=== PATIENT | female | born 1955 | race Caucasian/White ===

== ENCOUNTER → 2017-11-01 09:50 | Outpatient (CLI) | payer MEDICARE, BC, SELFPAY ==
--- NOTE | 2017-11-01 10:13 | MM_ITS ---
MM Dig screening mamm BI w/CAD CAD Screening COMPARISON: Digital mammograms 07/22/2012 INDICATION: There is no personal or family history of breast cancer TECHNIQUE: Standard CC and MLO images were obtained. R2 CAD reviewed. FINDINGS: Scattered fibroglandular densities are seen throughout both breast on a background of fatty breast parenchyma. There are couple of benign-appearing calcifications in each breast. There are 2 mole markers left breast. There is no suspicious lesion and there are no suspicious microcalcifications. There are stable small nodes in both axilla. IMPRESSION: Fibrofatty parenchyma with no suspicious lesion seen BI-RADS Category: 2 Benign Finding(s) RECOMMENDED FOLLOW-UP: 1YR - 1 YEAR FOLLOW-UP (A letter has been sent to the patient regarding results of the study.)
== END ==
PROVIDERS: Family Provider Family Medicine; PCP Family Medicine; Visit Provider Family Medicine
DX: Z12.31 Encounter for screening mammogram for malignant neoplasm of breast (principal)
CPT/HCPCS: 77067

== ENCOUNTER → 2019-04-07 09:48 | Outpatient (POV) | payer MEDICARE, BC, SELFPAY | PROVIDERS: Visit Provider Dermatology | DX: Z00.00 Encounter for general adult medical examination without abnormal findings (principal) ==

== ENCOUNTER 2019-05-21 10:00 | Outpatient (RCR) | payer MEDICARE, BC, SELFPAY | END 2019-05-21 10:05 | disposition home or self-care (01) | LOC: PT 10:00 | PROVIDERS: Visit Provider Orthopaedic Surgery | DX: Z96.642 Presence of left artificial hip joint (principal); M25.552 Pain in left hip | CPT/HCPCS: 97010; 97014; 97033; 97035; 97110; 97140; 97163; G0283 ==

== ENCOUNTER 2020-03-25 10:00 | Outpatient (RCR) | payer MEDICARE, BC, SELFPAY | END 2020-03-25 10:05 | disposition home or self-care (01) | LOC: PT 10:00 | PROVIDERS: Visit Provider Orthopaedic Surgery | DX: M76.01 Gluteal tendinitis, right hip (principal) | CPT/HCPCS: 97010; 97014; 97033; 97035; 97110; 97163; G0283 ==

== ENCOUNTER → 2020-09-01 08:40 | Outpatient (CLI) | payer MEDICARE, BC, SELFPAY ==
--- NOTE | 2020-09-01 08:44 | NM_ITS ---
PROCEDURE: NM BONE 3 PHASE CLINICAL INDICATION: ABN FINDINGS ON DIAGNOSTIC IMAGING Prior right hip replacement with soreness and pain COMPARISON: CR XR HIP RT 2-3V W/PELVIS from 09/01/2020 TECHNIQUE: Dose 24.6 mCi technetium MDP FINDINGS: Three-phase bone scan performed of the right hip. Blood flow images show symmetric activity to both hips. Blood pool images shows only slight increased activity to the soft tissues of the right hip anteriorly. Delayed static images show photopenic areas in both hips corresponding to the bilateral hip hemiarthroplasty is. There is very slight increased activity at the tip of the right prosthesis compared to the left side. This is nonspecific and may only be related to the recent placement of the prosthesis. This could also be seen with loosening however, radiograph obtained of the same day does not support that. Please correlate with clinical parameters. IMPRESSION: Status post bilateral hip hemiarthroplasty with photopenic areas in the proximal femurs and acetabuli with minimal increased activity at the tip of the right prosthesis which is nonspecific but could be seen with minor loosening. There is also slight increased activity within the soft tissues of the right hip on the blood flow images which could be related to some mild overlying inflammation or postsurgical change. Dictated by: Connor Pena MD 09/02/2020 06:16 Connor Pena MD in [facility] 09/02/2020 06:16
--- NOTE | 2020-09-01 13:04 | XR_ITS ---
PROCEDURE: XR HIP RT 2-3V W/PELVIS CLINICAL INDICATION: RT HIP PAIN..REPLACEMENT SEP 2019 COMPARISON: CR HIP2L HIP-2 VIEWS-LT from 06/02/2015 FINDINGS: Status post right hip hemiarthroplasty. There is good alignment with no evidence of orthopedic complication. No fracture or dislocation. There is a left hip hemiarthroplasty also noted. IMPRESSION: Status post bilateral hip hemiarthroplasty with good alignment Dictated by: Connor Pena MD 09/02/2020 12:38 Connor Pena MD in [facility] 09/02/2020 12:38
== END ==
PROVIDERS: PCP Family Medicine; Visit Provider Orthopaedic Surgery
DX: R93.7 Abnormal findings on diagnostic imaging of other parts of musculoskeletal system (principal)
CPT/HCPCS: 73502; 78315; A9503

== ENCOUNTER 2020-09-13 10:00 | Outpatient (RCR) | payer MEDICARE, BC, SELFPAY | END 2020-09-13 10:05 | disposition home or self-care (01) | LOC: PT 10:00 | PROVIDERS: Visit Provider Orthopaedic Surgery | DX: M79.604 Pain in right leg (principal) | CPT/HCPCS: 20560; 97010; 97014; 97110; 97140; 97163; G0283 ==

== ENCOUNTER → 2020-10-10 15:05 | Outpatient (CLI) | payer MEDICARE, BC, SELFPAY ==
[2020-10-12 10:12] LABS: Covid-19 Nasal PCR Sendout P&C POSITIVE
== END ==
PROVIDERS: PCP Family Medicine; Visit Provider Nurse Practitioner
DX: U07.1 COVID-19
CPT/HCPCS: U0004

== ENCOUNTER 2020-10-21 22:18 | Inpatient (IN) | payer MEDICARE, BC, SELFPAY ==
[2020-10-21 22:17] VITALS: BMI 41.9
--- NOTE | 2020-10-21 22:18 | XR_ITS ---
PROCEDURE: XR CHEST PORTABLE CLINICAL HISTORY: SOB Shortness of breath, low oxygen COMPARISON: CR CXR CHEST(2 VIEWS-NOT PORTABLE) from 07/31/[address] ANGIO CHEST from 10/22/2020 FINDINGS: The cardiomediastinal silhouette and pulmonary vascularity are within normal limits. There is diffuse bilateral alveolar opacification. There is some sparing in the left apex. No evidence of pneumothorax or pleural effusion. IMPRESSION: Diffuse bilateral pneumonia Dictated by: Connor Pena MD 10/22/2020 07:45 Connor Pena MD in [facility] 10/22/2020 07:45
[2020-10-21 22:25] LABS: ABG Base Excess -3.9 mmol/L (-2.4-2.3); ABG HCO3 18.6 mmhg (22.0-26.0); ABG Oxygen Saturation 88 % (90-100); ABG PCO2 22.1 mmhg (35.0-45.0); ABG PH 7.54 mmol/L (7.35-7.45); ABG TCO2 19.3 mmhg (23-27)
[2020-10-21 22:28] LABS: Allen's Test Acceptable; Oxygen 100% NRB %; Source Right Radial
[2020-10-21 22:29] LABS: ABG PO2 47.4 mmhg (80-100)
[2020-10-21 22:30] VITALS: BP 151/61; PULSE 118; RESP 32; TEMP 40; O2SAT 88; BMI 31.3
[2020-10-21 22:40] LABS: Microscopic, Urine URINE MICROSCOPIC (MICROSCOPIC)
[2020-10-21 22:46] LABS: Appearance,Urine CLEAR (Clear); Blood, Urine Negative (Negative); Color,Urine YELLOW (Yellow); Glucose,Urine (UA) Negative (Negative); Ketones,Urine 1+ (Negative); Leukocyte Esterase,Urine Negative (Negative); Nitrate,Urine Negative (Negative); Protein,Urine TRACE (Negative)
[2020-10-21 22:47] VITALS: BP 130/64; PULSE 121; O2SAT 86
[2020-10-21 22:50] LABS: Bilirubin,Urine 1+ (Negative)
[2020-10-21 22:52] LABS: Anion Gap 12.4 mEq/L (5-15); Blood Urea Nitrogen 20 mg/dl (7-17); Carbon Dioxide 22 mmol/L (22.0-30.0); Chloride 94 mmol/L (98-107); Creatinine Clearance Estimated 52 mL/min (50-200); Estimated Glomerular Filt Rate 55 ml/min (>60); GFR (African American) 67 ML/MIN (>60); Glucose 128 mg/dl (74-100); Sodium 124 mmol/L (136-145)
[2020-10-21 22:53] LABS: Basophils # 0.1 K/mm3 (0-0.2); Basophils % 0.5 % (0.1-2.0); Eosinophils % 0.1 % (0.1-12.0); Hematocrit 45.1 % (37.0-47.0); Hemoglobin 15.5 g/dL (12.2-16.2); Lymphocytes # 1.2 K/mm3 (0.7-4.5); Lymphocytes % 8.4 % (10-50); Mean Corpuscular HGB Conc 34.3 g/dL (31.8-35.4); Mean Corpuscular Hemoglobin 31.3 pg (27.0-31.2); Mean Corpuscular Volume 91.3 fl (81-99); Mean Platelet Volume 8.7 fl (7.4-10.4); Monocytes # 0.5 K/mm3 (0.1-1.0); Monocytes % 3.3 % (1.7-9.3); Neutrophils # 12.4 K/mm3 (1.8-7.8); Neutrophils % 87.6 % (37.0-80.0); Platelet Count 333 K/mm3 (142-424); Potassium 4.4 mmoL/L (3.5-5.1); Red Blood Count 4.94 M/mm3 (4.20-5.40); Red Cell Distribution Width 12.8 % (11.5-17.5); White Blood Count 14.1 K/mm3 (4.8-10.8)
[2020-10-21 22:54] LABS: MANUAL DIFFERENTIAL MANUAL DIFFERENTIAL (MANUAL DIFF)
[2020-10-21 22:54] LABS: Adenovirus,PCR Not Detected (NotDetected); Bordetella Pertussis Not Detected (NotDetected); Chlamydophila Pneumoniae, PCR Not Detected (NotDetected); Coronavirus 229E Not Detected (NotDetected); Coronavirus NL63 Not Detected (NotDetected); Coronavirus OC43 Not Detected (NotDetected); Coronovirus HKU1,PCR Not Detected (NotDetected); Human Metapneumovirus Not Detected (NotDetected); Influenza A, PCR Not Detected (NotDetected); Influenza AH1, 2009 Not Detected (NotDetected); Influenza AH1, PCR Not Detected (NotDetected); Influenza AH3,PCR Not Detected (NotDetected); Influenza B, PCR Not Detected (NotDetected); Mycoplasma Pneumoniae, PCR Not Detected (NotDetected); Parainfluenza 1, PCR Not Detected (NotDetected); Parainfluenza 2, PCR Not Detected (NotDetected); Parainfluenza 3, PCR Not Detected (NotDetected); Parainfluenza 4, PCR Not Detected (NotDetected); Respiratory Syncytial Virus Not Detected (NotDetected); Rhinovirus/Enterovirus Not Detected (NotDetected)
[2020-10-21 22:57] LABS: C-Reactive Protein 198.5 mg/L (0-4)
[2020-10-21 23:05] VITALS: O2SAT 89
[2020-10-21 23:06] LABS: Troponin I 0.22 ng/ml (0.00-0.034)
--- NOTE | 2020-10-21 23:08 | HMH.EDSOB ---
ED Disposition Clinical Impression: Pneumonia due to COVID-19 virus, Obesity (BMI 30-39.9) Respiratory failure with hypoxia Qualifiers: Chronicity: acute Qualified Code(s): J96.01 - Acute respiratory failure with hypoxia Hypothyroidism Qualifiers: Hypothyroidism type: acquired Qualified Code(s): E03.9 - Hypothyroidism, unspecified Disposition: Admitted As Inpatient Condition on Discharge: Serious Referrals: Yoav Castro MD [Primary Care Provider] - - Critical Care Critical Care Time: Yes Attestation: On 10/21/20, the high probability of a clinically significant, sudden or life threatening deterioration of the following system(s) required my full and direct attention, intervention and personal management. The time I documented below is in addition to time spent performing reported procedures but includes the following listed in this critical care notation. Total Critical Care Time: 45 Vital system(s) involved:: Respiratory Failure My critical care processes included: Assessment & monitoring of V/S, Initial and Re-exams, Data Review/Interpretation, Coordinating Care, Medication Orders and management Medical Decision Making - Medical Records Medical records reviewed: Yes: I reviewed the patient's medical records. - Daniel Inquiry Pt receiving controlled substance: No Vital Signs: 10/21/20 22:30 10/21/20 23:05 Temperature 104.0 F H Temperature Source Rectal Pulse Rate [Right] 118 H Respiratory Rate 32 H Blood Pressure [Right Arm] 151/61 H Blood Pressure Mean [Right Arm] 91 Blood Pressure Source [Right Arm] Automatic Cuff Blood Pressure Position [Right Arm] Supine 02 Sat by Pulse Oximetry 88 L 89 L Oxygen Delivery Method Non-Rebreather Vapotherm Oxygen Flow Rate (LPM) 40 - Lab Data Lab results reviewed: Yes: I reviewed the patient's lab results. Lab Results 10/21/20 22:18: Specimen Source Right radial, O2 % 100% nrb, ABG pH 7.54 H, ABG pCO2 22.1 L, ABG pO2 47.4 L, ABG HCO3 18.6 L, ABG Total CO2 19.3 L, ABG O2 Saturation 88 L, ABG Base Excess -3.9 L, Connor Test Acceptable 10/21/20 22:30: WBC 14.1 H, RBC 4.94, Hgb 15.5, Hct 45.1, MCV 91.3, MCH 31.3 H, MCHC 34.3, RDW 12.8, Plt Count 333, MPV 8.7, Neut % (Auto) 87.6 H, Lymph % (Auto) 8.4 L, [place] % (Auto) 3.3, Eos % (Auto) 0.1, Baso % (Auto) 0.5, Neut # (Auto) 12.4 H, Lymph # (Auto) 1.2, [place] # (Auto) 0.5, Eos # (Auto) 0.0, Baso # (Auto) 0.1, Total Counted 100, Neutrophils % (Manual) 79 H, Band Neutrophils % 9.0 H, Lymphocytes % (Manual) 11, Monocytes % (Manual) 1 L, Platelet Estimate Normal, RBC Morphology Normal, ESR 26 10/21/20 22:30: Sodium 124 L, Potassium 4.4, Chloride 94 L, Carbon Dioxide 22, Anion Gap 12.4, BUN 20 H, Creatinine 1.00, Estimated Creat Clear 52, Estimated GFR 55 L, Est GFR ( Amer) 67, Glucose 128 H, Calcium 9.0, Troponin I 0.22 H, C-Reactive Protein 198.5 H, Procalcitonin 0.222 10/21/20 22:30: Urine Color Yellow, Urine Appearance Clear, Urine pH 6.0, Ur Specific [place] 1.020, Urine Protein Trace, Urine Glucose (UA) Negative, Urine Ketones 1+, Urine Blood Negative, Urine Nitrate Negative, Urine Bilirubin 1+ A, Urine Urobilinogen 1.0, Ur Leukocyte Esterase Negative, Urine WBC 10-20 10/21/20 22:30: Lactate 2.0 10/21/20 22:50: Chlamy pneumoniae PCR Not detected, Adenovirus (PCR) Not detected, B. pertussis DNA (PCR) Not detected, Coronavirus OC43 (PCR) Not detected, Coronavirus HKU1 (PCR) Not detected, Coronavirus 229E (PCR) Not detected, SARS-CoV-2 (PCR) Detected A, Coronavirus NL63 (PCR) Not detected, Human Metapneumovir PCR Not detected, Influenza A (H1) PCR Not detected, Influ A (H1N1/09) PCR Not detected, Influenza A (H3) PCR Not detected, Influenza Type A (PCR) Not detected, Influenza Type B (PCR) Not detected, M. pneumoniae (PCR) Not detected, Parainfluenza 1 (PCR) Not detected, Parainfluenza 2 (PCR) Not detected, Parainfluenza 3 (PCR) Not detected, Parainfluenza 4 (PCR) Not detected, RSV (PCR) Not detected, Entero/Rhino (PCR) Not detec
[2020-10-21 23:11] LABS: Procalcitonin 0.222 ng/mL (0.0-2.0)
[2020-10-21 23:20] LABS: Erythrocyte Sedimentation Rate 26 mm/hr (0-30)
--- NOTE | 2020-10-21 23:31 | CT_ITS ---
PROCEDURE: CT ANGIO CHEST CLINCIAL INDICATION: respiratory failure Respiratory failure, positive for Covid19 COMPARISON: No exams were available for comparison TECHNIQUE: IV Contrast: 70ML Isovue 370 Axial images obtained with sagittal and coronal reformats. All CT scans at the facility use one or more dose reduction, viz: automated exposure control, ma/kV adjustment per patient size (including targeted exams where dose is matched to indication, i.e. head), or iterative reconstruction technique. FINDINGS: HEART AND MEDIASTINAL STRUCTURES: No evidence of aortic aneurysm or dissection. No evidence of central or large pulmonary embolus. In the left lower lobe within the posterior basilar segmental branches there is a small linear filling defect and may be due to a chronic area of pulmonary embolus. This is seen on series 2 image 153 to 170. There is mediastinal adenopathy and mildly prominent hilar lymph nodes LUNGS AND PLEURAL SPACES: Diffuse ground-glass consolidation throughout both lungs. Trace bilateral effusions. No evidence of pneumothorax. BONY STRUCTURES: There are degenerative changes within the thoracic spine with midthoracic curvature convex right. UPPER ABDOMEN: There is a small hiatal hernia. ADDITIONAL FINDINGS: No other significant abnormalities. IMPRESSION: 1. Diffuse ground-glass consolidation throughout the lungs. Commonly reported imaging features of Covid19 pneumonia are present. Other processes such is influenza pneumonia and organizing pneumonia, drug toxicity, connective tissue disease, and pulmonary hemorrhage can cause a similar imaging pattern. 2. No evidence of central pulmonary embolus. Tiny central filling defect within the posterior basilar segmental arteries left lower lobe suggesting small areas of chronic PE 3. Mediastinal and hilar adenopathy Dictated by: Connor Pena MD 10/22/2020 08:45 Connor Pena MD in [facility] 10/22/2020 08:45
[2020-10-21 23:41] LABS: Lymphocytes % 11 % (10-50); Monocytes % 1 % (2-9); Neutrophils % 79 % (42-76); Platelet Estimate Normal; RBC Morphology Normal; Total Cells Counted 100
[2020-10-21 23:47] VITALS: BP 123/70; PULSE 115; O2SAT 90
--- NOTE | 2020-10-21 23:51 | PC.NURSE ---
Pt confused and attempted to get out of bed, pt DC'd her own IV. Pt was helped back up in to the bed and placed back on the Vasotherm she pulled off and another IV is attempting to be placed
[2020-10-22] VITALS (15 sets, daily range): BP systolic 92–124; BP diastolic 47–69; PULSE 71–109; RESP 18–24; TEMP 36.3–37.2; O2SAT 80–91; BMI 30.9
[2020-10-22 00:21] LABS: Coronavirus 19, PCR Detected (NotDetected)
--- NOTE | 2020-10-22 00:33 | ECG_ITS ---
APPROVED REPORT Exam: Resting ECG HR:104 bpm ECG Measurements Heart Rate 104 AXES AL 154 P 43 QRSd 80 QRS -2 QT 324 T 55 QTc 426 Conclusion Sinus tachycardia Nonspecific ST and T wave abnormality Abnormal ECG Electronically signed by : Yoav Puga, 10/22/2020 08:48:50
--- NOTE | 2020-10-22 00:49 | PC.NURSE ---
catia on phone with neus @ this time
[2020-10-22 01:31] LABS: Alanine Aminotransferase 18 U/L (12-78); Albumin Level 3.1 g/dl (3.5-5.0); Albumin/Globulin Ratio 1.1 (1.1-1.8); Alkaline Phosphatase 87 U/L (38-126); Anion Gap 12.4 mEq/L (5-15); Aspartate Amino Transferase 40 U/L (14-36); Bilirubin,Total 0.7 mg/dl (0.2-1.3); Blood Urea Nitrogen 20 mg/dl (7-17); Calcium 8.2 mg/dl (8.4-10.2); Carbon Dioxide 21 mmol/L (22.0-30.0); Chloride 96 mmol/L (98-107); Creatinine Clearance Estimated 79 mL/min (50-200); Estimated Glomerular Filt Rate 63 ml/min (>60); GFR (African American) 76 ML/MIN (>60); Globulin 2.9 g/dL (1.3-3.2); Glucose 153 mg/dl (74-100); Potassium 3.4 mmoL/L (3.5-5.1); Sodium 126 mmol/L (136-145)
[2020-10-22 01:52] LABS: Troponin I 0.57 ng/ml (0.00-0.034)
--- NOTE | 2020-10-22 01:53 | PC.NURSE ---
notified of trop 0.57
--- NOTE | 2020-10-22 02:17 | PC.NURSE ---
Pt up to floor at this time via stretcher per ER staff
--- NOTE | 2020-10-22 03:45 | PC.NURSE ---
Pt has been A&Ox4 since being up to the floor. Expiratory wheezing noted t/o all lung ku per auscultation. Pt remains on vapotherm 40 L and 100% FiO2. o2 sat at this time, 91% No cough noted. IS placed in pt's room. Pt educated on its use and purpose. Pt verbalized understanding, but declined to try IS @ this time. Pt has been afebrile since being on the floor. Non-pitting edema noted to BLE. Pt has been sinus tach on tele this shift. Eden cath remains intact and is draining clear, light simon urine per gravity. No other acute changes or complaints at this time.
[2020-10-22 05:09] LABS: Basophils % 0.2 % (0.1-2.0); Eosinophils % 0.1 % (0.1-12.0); Hematocrit 40.2 % (37.0-47.0); Lymphocytes # 0.9 K/mm3 (0.7-4.5); Lymphocytes % 7.8 % (10-50); Mean Corpuscular HGB Conc 34.4 g/dL (31.8-35.4); Mean Corpuscular Hemoglobin 31.2 pg (27.0-31.2); Mean Corpuscular Volume 90.7 fl (81-99); Mean Platelet Volume 8.6 fl (7.4-10.4); Monocytes # 0.3 K/mm3 (0.1-1.0); Monocytes % 2.6 % (1.7-9.3); Neutrophils # 10.1 K/mm3 (1.8-7.8); Neutrophils % 89.4 % (37.0-80.0); Platelet Count 219 K/mm3 (142-424); Red Blood Count 4.43 M/mm3 (4.20-5.40); Red Cell Distribution Width 12.7 % (11.5-17.5); White Blood Count 11.3 K/mm3 (4.8-10.8)
[2020-10-22 05:17] LABS: Hemoglobin 13.8 g/dL (12.2-16.2)
[2020-10-22 05:22] LABS: Anion Gap 9.7 mEq/L (5-15); Blood Urea Nitrogen 18 mg/dl (7-17); Calcium 8.4 mg/dl (8.4-10.2); Carbon Dioxide 24 mmol/L (22.0-30.0); Chloride 99 mmol/L (98-107); Creatinine Clearance Estimated 81 mL/min (50-200); Estimated Glomerular Filt Rate 72 ml/min (>60); GFR (African American) 87 ML/MIN (>60); Glucose 166 mg/dl (74-100); Magnesium 2.2 mg/dl (1.6-2.3); Potassium 3.7 mmoL/L (3.5-5.1); Sodium 129 mmol/L (136-145)
[2020-10-22 06:00] LABS: Troponin I 0.58 ng/ml (0.00-0.034)
[2020-10-22 08:03] LABS: ABG Base Excess -2.3 mmol/L (-2.4-2.3); ABG HCO3 21.5 mmhg (22.0-26.0); ABG Oxygen Saturation 81 % (90-100); ABG PCO2 31.1 mmhg (35.0-45.0); ABG PH 7.46 mmol/L (7.35-7.45); ABG TCO2 22.5 mmhg (23-27)
[2020-10-22 08:04] LABS: Allen's Test Acceptable; Oxygen 100 %; Source Left Radial
[2020-10-22 08:05] LABS: ABG PO2 42.6 mmhg (80-100)
--- NOTE | 2020-10-22 08:23 | XR_ITS ---
PROCEDURE: XR CHEST PORTABLE CLINICAL HISTORY: covid pneumonia COMPARISON: CR CXR CHEST(2 VIEWS-NOT PORTABLE) from 07/31/2016 CR XR CHEST PORTABLE from 10/21/[address] ANGIO CHEST from 10/22/2020 FINDINGS: The cardiomediastinal silhouette and pulmonary vascularity are within normal limits. There remains mild diffuse ground-glass attenuation in the right upper and right lower lobe and left mid lower lung zone consistent with Covid19 pneumonia. Overall the appearance has improved however this may be due to better inspiration on this exam. No evidence of pneumothorax. No acute bony abnormalities. IMPRESSION: Diffuse bilateral pneumonia which appears slightly improved but may be due to better inspiration Dictated by: Connor Pena MD 10/22/2020 09:21 Connor Pena MD in [facility] 10/22/2020 09:21
--- NOTE | 2020-10-22 08:23 | HMH.HP ---
*Admission Date: 10/21/20 *Chief complaint: Weakness with questionable unresponsiveness at home *History of present illness: 65-year-old female diagnosed with COVID-19 infection on October 10 after presenting to the office with nasal congestion and discovery of recent exposure presented to the ER via EMS yesterday evening with respiratory failure. Patient reports over the last 2 weeks since her diagnosis her symptoms have fluctuated. During that time she had a period where for 1 to 2 days she felt short of breath but patient admits in the days leading up to her ER presentation she thought she was getting better. However, she does not recall the events of October 21 that ultimately led to her hospitalization. ER notes indicate patient was unconscious/unresponsive at home when EMS arrived. Patient's O2 sats were in the 40s. Patient was placed on nonrebreather and transported to the ER. In the ER patient was evaluated and has subsequently been admitted to the Covid unit on Vapotherm which is currently maxed at an FiO2 of 100% and 40 L/min. Nursing staff reports patient's O2 sats have been in the mid to high 80s on Vapotherm. Despite having obvious tachypnea with some conversational dyspnea patient denies feeling significantly short of breath this morning. Patient also had an elevated troponin on admission and denies having chest pain. [facility] History I have reviewed the patient's past medical history: Yes Medical History: Reports:: Hyperlipidemia Denies:: Cancer, Diabetes Mellitus Type 1, Diabetes Mellitus Type 2, MRSA *Have you ever received a pneumonia vaccine?: No *Have you received a flu vaccine this season?: No Other Medical History: Reports: Hypothyroidism Laterality Cases: Bilateral: Arthroscopy Hip, Arthroscopy Knee Amputation: No - *Social History Last grade of school completed: Some college Smoking Status: Never smoker Alcohol Intake: current Alcohol Intake Frequency:: holidays/special occasions only *Occupational Status:: retired Household Members: spouse *Travel in the last 8 weeks: None Family Hx:: Cancer, Coronary Artery Disease, Diabetes, Hypertension, Stroke Review of Systems - Constitutional Reports headache(s), Reports lack of energy - Eyes Denies blurry vision, Denies change in vision - ENT Reports headache(s), Reports nasal congestion, Reports nasal discharge, Denies bleeding gums, Denies change in voice - *Cardiovascular Reports shortness of breath, Denies chest pain, Denies chest pain at rest, Denies chest pain with activity - *Respiratory Reports chest congestion, Reports cough, Reports shortness of breath, Denies change in phlegm color - *Gastrointestinal Denies belching, Denies bloating - *Genitourinary Denies difficulty urinating - *Musculoskeletal Denies joint pain - Integumentary/Breasts Denies hair loss - *Neurologic Denies localized weakness, Denies headache(s), Denies seizure-like activity Meds Home Medications Medication Instructions Recorded Confirmed Type Levothyroxine Sodium 125 mcg PO DAILY 10/21/20 10/22/20 History [Levothyroxine 125mcg (0.125mg) Tab] Pravastatin Sodium 10 mg PO HS 10/21/20 10/22/20 History Allergies Allergy/AdvReac Type Severity Reaction Status Date / Time No Known Allergies Allergy Unverified 10/22/20 08:44 Exam Vital signs and Labs for Last 24 Hours: Temp Pulse Resp BP Pulse Ox 97.3 F L 98 H 18 114/66 81 L 10/22/20 07:51 10/22/20 07:51 10/22/20 07:51 10/22/20 07:51 10/22/20 07:51 Laboratory Results - last 24 hr 10/21/20 22:18: Specimen Source Right radial, O2 % 100% nrb, ABG pH 7.54 H, ABG pCO2 22.1 L, ABG pO2 47.4 L, ABG HCO3 18.6 L, ABG Total CO2 19.3 L, ABG O2 Saturation 88 L, ABG Base Excess -3.9 L, Connor Test Acceptable 10/21/20 22:30: WBC 14.1 H, RBC 4.94, Hgb 15.5, Hct 45.1, MCV 91.3, MCH 31.3 H, MCHC 34.3, RDW 12.8, Plt Count 333, MPV 8.7, Neut % (Auto) 87.6 H, Lymph % (Auto) 8.4 L, [place] % (Auto) 3.3, Eo
--- NOTE | 2020-10-22 08:24 | PC.NURSE ---
RESPIRATORY CARE NOTE: SPUTUM CUP PLACED AT PT BEDSIDE. PT UNABLE TO PRODUCE SPECIMEN AT THIS TIME, WILL CONTINUE TO PROMOTE COUGH THROUGHOUT THE DAY.
[2020-10-22 08:39] LABS: Alanine Aminotransferase 18 U/L (12-78); Albumin Level 3.2 g/dl (3.5-5.0); Alkaline Phosphatase 85 U/L (38-126); Aspartate Amino Transferase 47 U/L (14-36); Bilirubin,Direct 0.5 mg/dl (0.0-0.4); Bilirubin,Indirect 0.2 mg/dL (0.0-0.9); Bilirubin,Total 0.7 mg/dl (0.2-1.3); Bilirubin,Unconjugated 0.2 mg/dL (0.0-1.1); Total Protein,Serum 6.3 g/dl (6.3-8.2)
--- NOTE | 2020-10-22 09:39 | HMH.PHACONS ---
- Pharmacy Consult Date: 10/22/20 Time: 09:39 Referring provider: DR. BOLTON Reason for Consult:: VANCOMYCIN DOSING Allergies and ADEs:: Allergies Allergy/AdvReac Type Severity Reaction Status Date / Time No Known Allergies Allergy Unverified 10/22/20 08:44 Home Medications:: Home Medications Medication Instructions Recorded Confirmed Type Levothyroxine Sodium 125 mcg PO DAILY 10/21/20 10/22/20 History [Levothyroxine 125mcg (0.125mg) Tab] Pravastatin Sodium 10 mg PO HS 10/21/20 10/22/20 History Height: 1.73 m Weight: 92.334 kg Laboratory Results:: Laboratory Results - last 24 hr 10/21/20 22:18: Specimen Source Right radial, O2 % 100% nrb, ABG pH 7.54 H, ABG pCO2 22.1 L, ABG pO2 47.4 L, ABG HCO3 18.6 L, ABG Total CO2 19.3 L, ABG O2 Saturation 88 L, ABG Base Excess -3.9 L, Connor Test Acceptable 10/21/20 22:30: WBC 14.1 H, RBC 4.94, Hgb 15.5, Hct 45.1, MCV 91.3, MCH 31.3 H, MCHC 34.3, RDW 12.8, Plt Count 333, MPV 8.7, Neut % (Auto) 87.6 H, Lymph % (Auto) 8.4 L, [place] % (Auto) 3.3, Eos % (Auto) 0.1, Baso % (Auto) 0.5, Neut # (Auto) 12.4 H, Lymph # (Auto) 1.2, [place] # (Auto) 0.5, Eos # (Auto) 0.0, Baso # (Auto) 0.1, Total Counted 100, Neutrophils % (Manual) 79 H, Band Neutrophils % 9.0 H, Lymphocytes % (Manual) 11, Monocytes % (Manual) 1 L, Platelet Estimate Normal, RBC Morphology Normal, ESR 26 10/21/20 22:30: Sodium 124 L, Potassium 4.4, Chloride 94 L, Carbon Dioxide 22, Anion Gap 12.4, BUN 20 H, Creatinine 1.00, Estimated Creat Clear 52, Estimated GFR 55 L, Est GFR ( Amer) 67, Glucose 128 H, Calcium 9.0, Troponin I 0.22 H, C-Reactive Protein 198.5 H, Procalcitonin 0.222 10/21/20 22:30: Urine Color Yellow, Urine Appearance Clear, Urine pH 6.0, Ur Specific [place] 1.020, Urine Protein Trace, Urine Glucose (UA) Negative, Urine Ketones 1+, Urine Blood Negative, Urine Nitrate Negative, Urine Bilirubin 1+ A, Urine Urobilinogen 1.0, Ur Leukocyte Esterase Negative, Urine WBC 10-20 10/21/20 22:30: Lactate 2.0 10/21/20 22:50: Chlamy pneumoniae PCR Not detected, Adenovirus (PCR) Not detected, B. pertussis DNA (PCR) Not detected, Coronavirus OC43 (PCR) Not detected, Coronavirus HKU1 (PCR) Not detected, Coronavirus 229E (PCR) Not detected, SARS-CoV-2 (PCR) Detected A, Coronavirus NL63 (PCR) Not detected, Human Metapneumovir PCR Not detected, Influenza A (H1) PCR Not detected, Influ A (H1N1/09) PCR Not detected, Influenza A (H3) PCR Not detected, Influenza Type A (PCR) Not detected, Influenza Type B (PCR) Not detected, M. pneumoniae (PCR) Not detected, Parainfluenza 1 (PCR) Not detected, Parainfluenza 2 (PCR) Not detected, Parainfluenza 3 (PCR) Not detected, Parainfluenza 4 (PCR) Not detected, RSV (PCR) Not detected, Entero/Rhino (PCR) Not detected 10/22/20 01:17: Sodium 126 L, Potassium 3.4 L D, Chloride 96 L, Carbon Dioxide 21 L, Anion Gap 12.4, BUN 20 H, Creatinine 0.90, Estimated Creat Clear 79, Estimated GFR 63, Est GFR ( Amer) 76, Glucose 153 H, Calcium 8.2 L, Total Bilirubin 0.7, AST 40 H, ALT 18, Alkaline Phosphatase 87, Troponin I 0.57 H, Total Protein 6.0 L, Albumin 3.1 L, Globulin 2.9, Albumin/Globulin Ratio 1.1 10/22/20 04:30: Sodium 129 L, Potassium 3.7, Chloride 99, Carbon Dioxide 24, Anion Gap 9.7, BUN 18 H, Creatinine 0.80, Estimated Creat Clear 81, Estimated GFR 72, Est GFR ( Amer) 87, Glucose 166 H, Calcium 8.4, Magnesium 2.2, Troponin I 0.58 H 10/22/20 04:30: WBC 11.3 H, RBC 4.43, Hgb 13.8 D, Hct 40.2, MCV 90.7, MCH 31.2, MCHC 34.4, RDW 12.7, Plt Count 219 D, MPV 8.6, Neut % (Auto) 89.4 H, Lymph % (Auto) 7.8 L, [place] % (Auto) 2.6, Eos % (Auto) 0.1, Baso % (Auto) 0.2, Neut # (Auto) 10.1 H, Lymph # (Auto) 0.9, [place] # (Auto) 0.3, Eos # (Auto) 0.0, Baso # (Auto) 0.0 10/22/20 04:30: Total Bilirubin 0.7, Direct Bilirubin 0.5 H, Conjugated Bilirubin 0.0, Indirect Bilirubin 0.2, Unconjugated Bilirubin 0.2, AST 47 H, ALT 18, Alkaline Phosphatase 85, Total Protein 6.3, Albumin 3.2 L 10/22/20 07:41: Specimen Source Left radial,
--- NOTE | 2020-10-22 11:56 | P.CONPHA_ITS ---
[facility] Pharmacy VTE Monitoring - Patient Demographics Admission date: 10/22/20 Report Date: 10/22/20 Time: 11:56 Allergies/Adverse Reactions: Patient Allergies No Known Allergies Allergy (Unverified 10/22/20 08:44) Height: 1.73 m Weight: 92.334 kg Patient Problems: Current Active Problems Pneumonia due to COVID-19 virus (Acute) Respiratory failure with hypoxia (Acute) Obesity (BMI 30-39.9) (Acute) Hypothyroidism (Acute) Acute hypoxemic respiratory failure (Acute) Viral pneumonia (Acute) COVID-19 virus infection (Acute) Elevated troponin (Acute) Hypothyroidism (acquired) (Acute) Hyperlipidemia (Acute) - VTE Risk Labs: VTE Related Lab Results Hgb 13.8 g/dL (12.2-16.2) D 10/22/20 04:30 Hct 40.2 % (37.0-47.0) 10/22/20 04:30 Plt Count 219 K/mm3 (142-424) D 10/22/20 04:30 BUN 18 mg/dl (7-17) H 10/22/20 04:30 Creatinine 0.80 mg/dl (0.52-1.04) 10/22/20 04:30 Estimated Creat Clear 81 mL/min (50-200) 10/22/20 04:30 VTE Score: 7 VTE Risk Level: Moderate Risk - Prophylaxis Types of VTE Prophylaxis: Pharmacological Location of Applied Device: Not Applicable Pharmacologic Type: Enoxaparin (LOVENOX)
--- NOTE | 2020-10-22 17:57 | PC.NURSE ---
Pt has been pleasant and cooperative this shift. A&O X4. No complaints of pain or SOA. Pt is receiving O2 via Vapotherm @ 40 LPM with sats. >86%. Lung sounds reveal expiratory rhonchi. Skin is C/D/I. No edema noted. F/C is patent and draining clear, yellow urine at bedside to gravity. No BM this shift. Pt turns/repositions Q2H and uses the IS faithfully. Pt ambulates independently and sat up in the recliner for several hours this shift. Appetite is fair and pt eats about 50% of all meals. 20 G peripheral IV in the RT AC is patent and SL. VSS. Call light within reach. Will continue to monitor.
[2020-10-23] VITALS (10 sets, daily range): BP systolic 99–122; BP diastolic 40–64; PULSE 64–81; RESP 18–24; TEMP 36.2–37; O2SAT 83–93; BMI 33.8
--- NOTE | 2020-10-23 03:18 | PC.NURSE ---
Pt has remained A&Ox4 this shift. Pt has remained in recliner this shift stating I am more comfortable this way Lung sounds are diminished t/o. No cough noted this shift. Pt is still maxed out on vapotherm w/ o2 sats between 87-92%. Pt has used IS hourly while awake. IS @ best 1250 cc's. Eden cath is draining clear, dark yellow urine per gravity. Active bowel sounds in all 4 quads, no BM noted this shift. No other acute changes or complaints at this time.
--- NOTE | 2020-10-23 06:00 | XR_ITS ---
PROCEDURE: XR CHEST PORTABLE Referring Doctor: Yoav Castro Patient Age:65Y CLINICAL HISTORY: covid pneumonia Hypoxia, leukocytosis COMPARISON: CR CXR CHEST(2 VIEWS-NOT PORTABLE) from 07/31/2016 CR XR CHEST PORTABLE from 10/21/[address] ANGIO CHEST from 10/22/2020 CR XR CHEST PORTABLE from 10/22/2020 FINDINGS: AP portable upright CXR performed today. There has been progression of bilateral infiltrates when compared to yesterday's October 22 CXR (actually today's study appears more in keeping with the October 21 pCXR) Bilateral diffuse infiltrates, most evident centrally but do extend peripheral more so on left but. Most pronounced infiltrate seen at the left mid lung and left base.-Infiltrate/atelectasis here now obscuring the left hemidiaphragm.. Findings do suggest bilateral pneumonia as seen on CT study from yesterday however may be in a element of CHF contributing given this central distribution infiltrate pattern along with moderately variation from day-to-day. You may want to consider correlating with BNP as well . There does appear to be minimal cardiomegaly on this portable CXR. . Hilar regions generous but in keeping with the recent studies including CT which suggested some underlying reactive mediastinal and mild hilar adenopathy. No pneumothorax; no obvious pleural effusions although difficult to exclude small effusion contributing to the obscured left hemidiaphragm at left base IMPRESSION: Progression of diffuse bilateral infiltrate since yesterday. The the Infiltrate/atelectasis most evident at left mid lung and left base now obscuring the elevated left hemidiaphragm on today's CXR Dictated by: Timothy Dickerson MD 10/23/2020 05:54 Timothy Dickerson MD in [place] 10/23/2020 05:54
[2020-10-23 06:13] LABS: Basophils % 0.1 % (0.1-2.0); Eosinophils % 0.1 % (0.1-12.0); Hematocrit 39.4 % (37.0-47.0); Hemoglobin 13.3 g/dL (12.2-16.2); Lymphocytes # 0.9 K/mm3 (0.7-4.5); Lymphocytes % 6.7 % (10-50); Mean Corpuscular HGB Conc 33.6 g/dL (31.8-35.4); Mean Corpuscular Volume 92.3 fl (81-99); Mean Platelet Volume 8.9 fl (7.4-10.4); Monocytes # 0.6 K/mm3 (0.1-1.0); Monocytes % 4.8 % (1.7-9.3); Neutrophils # 11.5 K/mm3 (1.8-7.8); Neutrophils % 88.2 % (37.0-80.0); Platelet Count 244 K/mm3 (142-424); Red Blood Count 4.27 M/mm3 (4.20-5.40); White Blood Count 13.1 K/mm3 (4.8-10.8)
[2020-10-23 06:18] LABS: MANUAL DIFFERENTIAL MANUAL DIFFERENTIAL (MANUAL DIFF)
[2020-10-23 06:29] LABS: Alanine Aminotransferase 18 U/L (12-78); Albumin Level 3.1 g/dl (3.5-5.0); Alkaline Phosphatase 76 U/L (38-126); Anion Gap 9.3 mEq/L (5-15); Aspartate Amino Transferase 36 U/L (14-36); Bilirubin,Total 0.5 mg/dl (0.2-1.3); Blood Urea Nitrogen 24 mg/dl (7-17); Calcium 8.2 mg/dl (8.4-10.2); Carbon Dioxide 25 mmol/L (22.0-30.0); Chloride 105 mmol/L (98-107); Creatinine Clearance Estimated 81 mL/min (50-200); Estimated Glomerular Filt Rate 84 ml/min (>60); GFR (African American) 101 ML/MIN (>60); Globulin 3.1 g/dL (1.3-3.2); Glucose 128 mg/dl (74-100); Potassium 3.3 mmoL/L (3.5-5.1); Sodium 136 mmol/L (136-145); Total Protein,Serum 6.2 g/dl (6.3-8.2)
[2020-10-23 06:34] LABS: C-Reactive Protein 126.7 mg/L (0-4)
--- NOTE | 2020-10-23 06:55 | PC.NURSE ---
Weight not obtained at this time due to pt desatting in chair while bathing. Will pass on to dayshift once pt is more stable. Pt desat to 74% and took approx 30 minutes to 89%. Pt did stay A&O during that time
[2020-10-23 07:13] LABS: Lymphocytes % 8 % (10-50); Monocytes % 1 % (2-9); Neutrophils % 88 % (42-76); Platelet Estimate Normal; RBC Morphology Normal; Total Cells Counted 100
[2020-10-23 07:17] LABS: ABG Base Excess -1.3 mmol/L (-2.4-2.3); ABG HCO3 21.9 mmhg (22.0-26.0); ABG Oxygen Saturation 87 % (90-100); ABG PCO2 28.9 mmhg (35.0-45.0); ABG TCO2 22.8 mmhg (23-27)
[2020-10-23 07:18] LABS: Allen's Test Acceptable; Oxygen 100% %; Source Left Radial
[2020-10-23 07:19] LABS: ABG PO2 48.5 mmhg (80-100)
--- NOTE | 2020-10-23 07:49 | HMH.ACPN2 ---
Internal Medicine - PN: Subj *Date: 10/23/20 *Time: 07:49 Interval history: Patient remains stable and without acute events. She is on Vapotherm at 40 L/min with FiO2 of 100%. O2 sats have remained in the high 80s to 94%. When patient lays on her side O2 sats seem to improve. Patient did get out of bed to chair and had brief desats with change in position and bathing this morning. Nursing staff reports no change in patient's overall status. Patient states she feels better today than yesterday Exam Vital signs and Labs for Last 24 Hours: Temp Pulse Resp BP Pulse Ox 97.4 F L 66 18 99/56 L 92 L 10/23/20 04:00 10/23/20 04:00 10/23/20 04:00 10/23/20 04:00 10/23/20 05:05 Laboratory Results - last 24 hr 10/22/20 04:30: Total Bilirubin 0.7, Direct Bilirubin 0.5 H, Conjugated Bilirubin 0.0, Indirect Bilirubin 0.2, Unconjugated Bilirubin 0.2, AST 47 H, ALT 18, Alkaline Phosphatase 85, Total Protein 6.3, Albumin 3.2 L 10/22/20 07:41: Specimen Source Left radial, O2 % 100, ABG pH 7.46 H, ABG pCO2 31.1 L, ABG pO2 42.6 L, ABG HCO3 21.5 L, ABG Total CO2 22.5 L, ABG O2 Saturation 81 L*, ABG Base Excess -2.3, Connor Test Acceptable, Tidal Volume vapo 40l 10/23/20 05:35: WBC 13.1 H, RBC 4.27, Hgb 13.3, Hct 39.4, MCV 92.3, MCH 31.0, MCHC 33.6, RDW 13.0, Plt Count 244, MPV 8.9, Neut % (Auto) 88.2 H, Lymph % (Auto) 6.7 L, [place] % (Auto) 4.8, Eos % (Auto) 0.1, Baso % (Auto) 0.1, Neut # (Auto) 11.5 H, Lymph # (Auto) 0.9, [place] # (Auto) 0.6, Eos # (Auto) 0.0, Baso # (Auto) 0.0, Total Counted 100, Neutrophils % (Manual) 88 H, Band Neutrophils % 3.0, Lymphocytes % (Manual) 8 L, Monocytes % (Manual) 1 L, Platelet Estimate Normal, RBC Morphology Normal 10/23/20 05:35: Sodium 136, Potassium 3.3 L, Chloride 105, Carbon Dioxide 25, Anion Gap 9.3, BUN 24 H D, Creatinine 0.70, Estimated Creat Clear 81, Estimated GFR 84, Est GFR ( Amer) 101, Glucose 128 H, Calcium 8.2 L, Total Bilirubin 0.5, AST 36, ALT 18, Alkaline Phosphatase 76, C-Reactive Protein 126.7 H, Total Protein 6.2 L, Albumin 3.1 L, Globulin 3.1, Albumin/Globulin Ratio 1.0 L, Procalcitonin 0.710 10/23/20 06:00: Specimen Source Left radial, O2 % 100%, ABG pH 7.50 H, ABG pCO2 28.9 L, ABG pO2 48.5 L, ABG HCO3 21.9 L, ABG Total CO2 22.8 L, ABG O2 Saturation 87 L*, ABG Base Excess -1.3, Connor Test Acceptable, Tidal Volume vapo 40l I & O for Last 24 hours: Intake & Output 10/20/20 10/21/20 10/22/20 10/23/20 11:59 11:59 11:59 11:59 Intake Total 1860 / 1860 1720 / 1720 Output Total 1800 / 1800 2400 / 2400 Balance 60 / 60 -680 / -680 Weight 203 lb 9 oz Microbiology Reports for the Last 24 Hours: Microbiology 10/21/20 22:30 Urine,Catheterized Urine Culture - Preliminary NO GROWTH AFTER 24 HOURS Narrative: Patient looks tired. Mild tachypnea similar to yesterday. Lungs have bibasilar rales. Heart has a regular rate and rhythm. Abdomen is soft and nontender Assessment and Plan (1) Acute hypoxemic respiratory failure Status: Acute Category: Medical Code(s): J96.01 - Acute respiratory failure with hypoxia (2) Viral pneumonia Status: Acute Category: Medical Code(s): J12.9 - Viral pneumonia, unspecified (3) COVID-19 virus infection Status: Acute Category: Medical Code(s): U07.1 - COVID-19 (4) Elevated troponin Status: Acute Category: Medical Code(s): R77.8 - Other specified abnormalities of plasma proteins (5) Hypothyroidism (acquired) Status: Acute Category: Medical Code(s): E03.9 - Hypothyroidism, unspecified (6) Hyperlipidemia Status: Acute Category: Medical Code(s): E78.5 - Hyperlipidemia, unspecified (7) Hypothyroidism Status: Acute Qualifiers: Hypothyroidism type: acquired Qualified Code(s): E03.9 - Hypothyroidism, unspecified Category: Medical Code(s): E03.9 - Hypothyroidism, unspecified (8) Obesity Status: Chronic Qualifiers: Obesity type: due to excess maribel
--- NOTE | 2020-10-23 16:56 | PC.NURSE ---
Pt has been pleasant and cooperative this shift. A&O X4. No complaints of pain. Pt complains of SOA with exertion and requires 10-15 minutes to recover from O2 de-saturation between 80-85%. Pt is receiving O2 via Vapotherm @ 40 LPM with sats. >90%. Lung sounds reveal expiratory rhonchi. Skin is C/D/I. No edema noted. F/C is patent and draining clear, yellow urine at bedside to gravity. No BM this shift. Pt turns/repositions Q2H and uses the IS faithfully. Pt ambulates independently and sat up in the recliner for several hours this shift. Appetite is fair and pt eats about 50% of all meals. Specimen cup is at bedside and pt has been instructed to provide a sputum specimen. 20 G peripheral IV in the RT AC is patent and SL. VSS. Call light within reach. Will continue to monitor.
[2020-10-23 22:50] LABS: Vancomycin,Trough 8.8 ug/mL (5.0-10.0)
[2020-10-24] VITALS (11 sets, daily range): BP systolic 94–125; BP diastolic 40–65; PULSE 75–95; RESP 18–28; TEMP 36.6–37.1; O2SAT 83–94; BMI 33.7
--- NOTE | 2020-10-24 00:56 | PC.NURSE ---
1934- MD Toro made aware of pt blood culture results. Clindamycin 900 mg q8h ordered 2144-MD Toro made aware that pt was desatting between 82-83% consistently and took about 1 hour to recover to 87%. Pt remained awake alert and oriented, but was breathing very labored and using all accessory muscles. x1 dose of 40 mg Lasix IV ordered. Pt currently @ 88% and has diuresed 1800 mL of urine per grijalva. WOB has improved and pt is breathing nonlabored, on her left side, and resting w/ eyes closed
--- NOTE | 2020-10-24 01:45 | PC.NURSE ---
0135- MD Toro notified regarding pt's current status. Pt desatted to 76% while sleeping, vapotherm in place. Pt was not in any distress, remained A&Ox4. But on monitor, 02 sats between 76-81%. current vitals: BP- 112/67 HR- 71 o2 sat 81 % on 40L, 100% Fio2 vapotherm MD Toro ordered another dose of 40 mg IV Lasix ONCE NOW
--- NOTE | 2020-10-24 02:06 | PC.NURSE ---
Addendum entered and electronically signed by Raul Negron MD 10/24/20 08:33: Received call overnight regarding this patients declining status. I informed the nurse that the patients vitals as told to me by the nurse appear concerning for respiratory failure and patient need to be intubated. However as I am not reservoir engineering consultant and have not seen the patient it would be inappropriate to give recommendations for patients that I have not personally seen. So I have told the nurse to call back Dr. Toro to inform my recommendations and seek further recommendations from Dr. Toro . The conversation was not as short and blunt as it was documented in the nursing notes. Original Note: MD Negron paged due to pt's o2 sat not increasing and remaining between 76-78%. Pt is still A&Ox4, arouses to her name. RR increased to 24-26 breaths per minute, but breathing remains nonlabored. MD Negron stated Contact Dr. Toro, I am not reservoir engineering consultant. And see what he says to do . MD Toro contacted after conversation w/ MD Negron, pt sats remained between 76-79%. Additional order of 40 mg IV Lasix ordered per MD Toro. RT placed NRB above pt's vapotherm. Pt recovered to 85% after 20 minutes. MD Negron called back to see what MD Toro's suggestion was, said he would see pt first thing in the morning. Current vital signs: BP- 115/70 HR- 65 o2 sat- 84% RR- 24
--- NOTE | 2020-10-24 03:33 | PC.NURSE ---
Pt is now sleeping bed. NRB remains in place over vapotherm. current o2 sat is 88%. Pt is breathing 32 times a min. Pt remains on left side. Breathing remains non labored. Lung sounds are now diminished as opposed to wheezing during inspiration and expiration at the beginning of this shift.
[2020-10-24 06:28] LABS: Basophils % 0.2 % (0.1-2.0); Eosinophils # 0.2 K/mm3 (0.0-0.4); Eosinophils % 1.5 % (0.1-12.0); Hematocrit 38.1 % (37.0-47.0); Lymphocytes # 0.8 K/mm3 (0.7-4.5); Lymphocytes % 5.4 % (10-50); Mean Corpuscular HGB Conc 34.2 g/dL (31.8-35.4); Mean Corpuscular Hemoglobin 30.6 pg (27.0-31.2); Mean Corpuscular Volume 89.4 fl (81-99); Monocytes # 0.6 K/mm3 (0.1-1.0); Monocytes % 4.4 % (1.7-9.3); Neutrophils # 12.3 K/mm3 (1.8-7.8); Neutrophils % 88.6 % (37.0-80.0); Platelet Count 256 K/mm3 (142-424); Red Blood Count 4.26 M/mm3 (4.20-5.40); Red Cell Distribution Width 12.6 % (11.5-17.5); White Blood Count 13.9 K/mm3 (4.8-10.8)
[2020-10-24 06:37] LABS: MANUAL DIFFERENTIAL MANUAL DIFFERENTIAL (MANUAL DIFF)
--- NOTE | 2020-10-24 06:47 | HMH.ACPN2 ---
Internal Medicine - PN: Subj *Date: 10/24/20 *Time: 06:47 Interval history: Patient's condition declined overnight. Patient was noted to have increased work of breathing with decrease in O2 sats. Patient was given 2 doses of Lasix throughout the night with a total of nearly 3500 mL of urine output. This however has not resulted in improvement in O2 sats or decrease in work of breathing. Patient's O2 sats have remained in the mid to high 80s on maximum high flow nasal cannula. This morning the patient states she feels the same as yesterday. She is coughing up some thick white sputum. Exam Vital signs and Labs for Last 24 Hours: Temp Pulse Resp BP Pulse Ox 98.7 F 75 28 H 115/65 89 L 10/24/20 04:00 10/24/20 04:00 10/24/20 04:00 10/24/20 04:00 10/24/20 04:00 Laboratory Results - last 24 hr 10/23/20 05:35: Total Counted 100, Neutrophils % (Manual) 88 H, Band Neutrophils % 3.0, Lymphocytes % (Manual) 8 L, Monocytes % (Manual) 1 L, Platelet Estimate Normal, RBC Morphology Normal 10/23/20 05:35: Sodium 136, Potassium 3.3 L, Chloride 105, Carbon Dioxide 25, Anion Gap 9.3, BUN 24 H D, Creatinine 0.70, Estimated Creat Clear 81, Estimated GFR 84, Est GFR ( Amer) 101, Glucose 128 H, Calcium 8.2 L, Total Bilirubin 0.5, AST 36, ALT 18, Alkaline Phosphatase 76, C-Reactive Protein 126.7 H, Total Protein 6.2 L, Albumin 3.1 L, Globulin 3.1, Albumin/Globulin Ratio 1.0 L, Procalcitonin 0.710 10/23/20 06:00: Specimen Source Left radial, O2 % 100%, ABG pH 7.50 H, ABG pCO2 28.9 L, ABG pO2 48.5 L, ABG HCO3 21.9 L, ABG Total CO2 22.8 L, ABG O2 Saturation 87 L*, ABG Base Excess -1.3, Connor Test Acceptable, Tidal Volume vapo 40l 10/23/20 22:25: Vancomycin Trough 8.8 10/24/20 06:00: WBC 13.9 H, RBC 4.26, Hgb 13.0, Hct 38.1, MCV 89.4, MCH 30.6, MCHC 34.2, RDW 12.6, Plt Count 256, MPV 8.0, Neut % (Auto) 88.6 H, Lymph % (Auto) 5.4 L, [place] % (Auto) 4.4, Eos % (Auto) 1.5, Baso % (Auto) 0.2, Neut # (Auto) 12.3 H, Lymph # (Auto) 0.8, [place] # (Auto) 0.6, Eos # (Auto) 0.2, Baso # (Auto) 0.0 I & O for Last 24 hours: Intake & Output 10/21/20 10/22/20 10/23/20 10/24/20 11:59 11:59 11:59 11:59 Intake Total 1860 / 1860 2080 / 2080 1450 / 1450 Output Total 1800 / 1800 2400 / 2400 2600 / 2600 Balance 60 / 60 -320 / -320 -1150 / -1150 Weight 203 lb 9 oz 223 lb 7 oz Microbiology Reports for the Last 24 Hours: Microbiology 10/21/20 22:30 Urine,Catheterized Urine Culture - Final NO GROWTH AFTER 48 HOURS 10/21/20 22:30 Blood Blood Culture - Preliminary NO GROWTH AFTER 48 HOURS 10/21/20 22:30 Blood Blood Culture - Preliminary Narrative: Patient looks more fatigued. Noted is increased respiratory rate and mild increase in work of breathing. Lung exam is significant for rales in the bases posteriorly as well as in the right lateral and anterior lower lung. Heart has a regular rate and rhythm. Abdomen is soft. Extremities are without edema Assessment and Plan (1) Acute hypoxemic respiratory failure Status: Acute Category: Medical Code(s): J96.01 - Acute respiratory failure with hypoxia (2) Viral pneumonia Status: Acute Category: Medical Code(s): J12.9 - Viral pneumonia, unspecified (3) COVID-19 virus infection Status: Acute Category: Medical Code(s): U07.1 - COVID-19 (4) Elevated troponin Status: Acute Category: Medical Code(s): R77.8 - Other specified abnormalities of plasma proteins (5) Hypothyroidism (acquired) Status: Acute Category: Medical Code(s): E03.9 - Hypothyroidism, unspecified (6) Hyperlipidemia Status: Acute Category: Medical Code(s): E78.5 - Hyperlipidemia, unspecified (7) Hypothyroidism Status: Acute Qualifiers: Hypothyroidism type: acquired Qualified Code(s): E03.9 - Hypothyroidism, unspecified Category: Medical Code(s): E03.9 - Hypothyroidism, unspecified (8) Obesity Status: Chronic Young
[2020-10-24 07:24] LABS: ABG Base Excess -0.3 mmol/L (-2.4-2.3); ABG HCO3 22.5 mmhg (22.0-26.0); ABG Oxygen Saturation 85 % (90-100); ABG PCO2 28.1 mmhg (35.0-45.0); ABG PH 7.52 mmol/L (7.35-7.45); ABG TCO2 23.4 mmhg (23-27)
[2020-10-24 07:26] LABS: Allen's Test Acceptable; Source Left Radial
[2020-10-24 07:27] LABS: ABG PO2 43.1 mmhg (80-100)
[2020-10-24 07:52] LABS: Alanine Aminotransferase 22 U/L (12-78); Albumin Level 3.4 g/dl (3.5-5.0); Alkaline Phosphatase 74 U/L (38-126); Anion Gap 12.5 mEq/L (5-15); Aspartate Amino Transferase 41 U/L (14-36); Bilirubin,Total 0.8 mg/dl (0.2-1.3); Blood Urea Nitrogen 21 mg/dl (7-17); Calcium 8.2 mg/dl (8.4-10.2); Carbon Dioxide 27 mmol/L (22.0-30.0); Chloride 106 mmol/L (98-107); Creatinine Clearance Estimated 89 mL/min (50-200); Estimated Glomerular Filt Rate 72 ml/min (>60); GFR (African American) 87 ML/MIN (>60); Globulin 3.4 g/dL (1.3-3.2); Glucose 106 mg/dl (74-100); Potassium 3.5 mmoL/L (3.5-5.1); Sodium 142 mmol/L (136-145); Total Protein,Serum 6.8 g/dl (6.3-8.2)
[2020-10-24 07:57] LABS: C-Reactive Protein 68.1 mg/L (0-4)
[2020-10-24 08:08] LABS: Procalcitonin 0.336 ng/mL (0.0-2.0)
--- NOTE | 2020-10-24 08:33 | CA_ITS ---
APPROVED REPORT EXAM: Comprehensive 2D, Doppler, and color-flow Echocardiogram Menagerie Caretaker: Sarah Rodrigues, RT(R) Ht: 5 ft 8 in Wt: 217lbs BSA: 2.12 BP: 114/66 mmHg Indications: COVID 19, Pnuemonia, hyperlipidemia, elevated troponin, SOB, chronic PE 2D Dimensions LVOT 1.96 cm (M/F) 1.5-2.5 M-Mode Dimensions RVDd 3.38 cm (0.9-2.6) LA Diam 3.77 cm (1.9-4.0) LVDd 4.55 cm (3.5-5.7) Ao Diam 2.78 cm (2.0-3.7) LVDs 2.88 cm (3.5-5.7) IVSd 1.10 cm (0.6-1.1) PWd 0.80 cm (0.6-1.1) EF (Teich) 66.60% FS 36.70% EDV (Teich) 94.90 mL ESV (Teich) 31.70 mL LV Diastology E Decel Time 213.00 (160-240 msec) E/A Ratio 1.0 MED E' 8.40 (< 7 cm/sec) E'/MED E' Ratio 8.58 (>14) LAT E' 8.00 (<10 cm/sec) E/LAT E' Ratio 9.01 (>14) Mitral Valve MV E Max Kenney. 72.00 (40-130 cm/s) MV A Velocity 74.00 (40-130 cm/s) E/A Ratio 0.98 MV Decel. Time 213.00 (160-240 ms) MV PHT 62.00 ms Tricuspid Valve TR P. Velocity 239.00 cm/s RAP Estimate 15.00 mmHg RVSP 37.80 mmHg Left Ventricle Left atrium is mildly enlarged, left ventricle is normal size, mild concentric left ventricular hypertrophy, visually estimated ejection fraction 55% with no regional wall motion abnormality, grade 1 diastolic dysfunction seen without tissue Doppler evidence of raise left atrial pressure. Right Ventricle Right atrium and right ventricle are mildly enlarged with normal contractility. Aortic Valve Aortic valve is minimally thickened and fibrosed, there is no aortic stenosis or aortic insufficiency. Mitral Valve Mitral valve is grossly normal, there is trace mitral regurgitation. Tricuspid Valve Tricuspid valve grossly normal, there is mild tricuspid regurgitation, calculated right ventricular systolic pressure is 38 mmHg. Pulmonic Valve Pulmonic valve is poorly visualized. Great Vessels Aortic root is normal size. Pericardium No significant pericardial effusion noted. Conclusion 1. Mild biatrial enlargement, normal left ventricular size, mild concentric left ventricular hypertrophy, visually estimated ejection fraction 55% with no regional wall motion abnormality, grade 1 diastolic dysfunction seen without tissue Doppler evidence of raise left atrial pressure. 2. Mildly enlarged right ventricle with normal contractility. 3. Trace mitral and mild tricuspid regurgitation calculated right ventricular systolic pressure 38 mmHg 4. No significant pericardial effusion noted. Electronically signed by : Bob Inman, 10/24/2020 21:16:00
[2020-10-24 08:44] LABS: Lymphocytes % 16 % (10-50); Monocytes % 4 % (2-9); Neutrophils % 80 % (42-76); Platelet Estimate Normal; RBC Morphology Normal; Total Cells Counted 100
--- NOTE | 2020-10-24 08:53 | HMH.PHACONS ---
- Pharmacy Consult Date: 10/24/20 Time: 08:53 Referring provider: DR. BOLTON Reason for Consult:: VANCOMYCIN TROUGH LEVEL Allergies and ADEs:: Allergies Allergy/AdvReac Type Severity Reaction Status Date / Time No Known Allergies Allergy Unverified 10/22/20 08:44 Home Medications:: Home Medications Medication Instructions Recorded Confirmed Type Levothyroxine Sodium 125 mcg PO DAILY 10/21/20 10/22/20 History [Levothyroxine 125mcg (0.125mg) Tab] Pravastatin Sodium 10 mg PO HS 10/21/20 10/22/20 History Height: 1.73 m Weight: 101.35 kg Laboratory Results:: Laboratory Results - last 24 hr 10/23/20 22:25: Vancomycin Trough 8.8 10/24/20 06:00: WBC 13.9 H, RBC 4.26, Hgb 13.0, Hct 38.1, MCV 89.4, MCH 30.6, MCHC 34.2, RDW 12.6, Plt Count 256, MPV 8.0, Neut % (Auto) 88.6 H, Lymph % (Auto) 5.4 L, [place] % (Auto) 4.4, Eos % (Auto) 1.5, Baso % (Auto) 0.2, Neut # (Auto) 12.3 H, Lymph # (Auto) 0.8, [place] # (Auto) 0.6, Eos # (Auto) 0.2, Baso # (Auto) 0.0, Total Counted 100, Neutrophils % (Manual) 80 H, Lymphocytes % (Manual) 16, Monocytes % (Manual) 4, Platelet Estimate Normal, RBC Morphology Normal 10/24/20 06:00: Sodium 142, Potassium 3.5, Chloride 106, Carbon Dioxide 27, Anion Gap 12.5, BUN 21 H, Creatinine 0.80, Estimated Creat Clear 89, Estimated GFR 72, Est GFR ( Amer) 87, Glucose 106 H, Calcium 8.2 L, Total Bilirubin 0.8, AST 41 H, ALT 22, Alkaline Phosphatase 74, C-Reactive Protein 68.1 H D, Total Protein 6.8, Albumin 3.4 L, Globulin 3.4 H, Albumin/Globulin Ratio 1.0 L, Procalcitonin 0.336 10/24/20 06:00: Troponin I 0.10 H 10/24/20 06:34: Specimen Source Left radial, O2 % 100 vapotherm, ABG pH 7.52 H, ABG pCO2 28.1 L, ABG pO2 43.1 L, ABG HCO3 22.5, ABG Total CO2 23.4, ABG O2 Saturation 85 L*, ABG Base Excess -0.3, Connor Test Acceptable Medical History: Reports:: Hyperlipidemia, Hypertension Denies:: Cancer, Diabetes Mellitus Type 1, Diabetes Mellitus Type 2, MRSA Assessment and Plan (1) Acute hypoxemic respiratory failure Status: Acute Category: Medical Code(s): J96.01 - Acute respiratory failure with hypoxia (2) Viral pneumonia Status: Acute Category: Medical Code(s): J12.9 - Viral pneumonia, unspecified (3) COVID-19 virus infection Status: Acute Category: Medical Code(s): U07.1 - COVID-19 (4) Elevated troponin Status: Acute Category: Medical Code(s): R77.8 - Other specified abnormalities of plasma proteins (5) Hypothyroidism (acquired) Status: Acute Category: Medical Code(s): E03.9 - Hypothyroidism, unspecified (6) Hyperlipidemia Status: Acute Category: Medical Code(s): E78.5 - Hyperlipidemia, unspecified (7) Hypothyroidism Status: Acute Qualifiers: Hypothyroidism type: acquired Qualified Code(s): E03.9 - Hypothyroidism, unspecified Category: Medical Code(s): E03.9 - Hypothyroidism, unspecified (8) Obesity Status: Chronic Qualifiers: Obesity type: due to excess calories Obesity classification: adult class 1 (BMI 30 - 34.9) Body mass index: BMI 30.0-30.9 Category: Medical Code(s): E66.9 - Obesity, unspecified (9) Hypokalemia Status: Acute Category: Medical Code(s): E87.6 - Hypokalemia - Assessment and plan all Dx Assessment and Plan for all problems:: BASED ON PATIENT FACTORS AND VANCOMYCIN TROUGH LEVEL, RECOMMEND CHANGING DOSE AND INTERVAL TO VANCOMYCIN 1500 MG IV Q12H BEGINNING THIS MORNING AT 1100. PHARMACY WILL CONTINUE TO MONITOR DAILY AND ADJUST APPROPRIATE.
--- NOTE | 2020-10-24 11:01 | HMH.PULMCON ---
*Admission Date: 10/22/20 *Reason for consult:: Acute hypoxic respiratory failure, COVID-19 pneumonia *History of present illness: Ms. Foster is a 65-year-old female with a recent diagnosis of COVID-19 pneumonia on October 10, with symptoms fluctuating since then eventually got worse event where she presented to the hospital with hypoxic respiratory plan patient has been needing high flow nasal cannula to maintain her recent oxygen saturations and pulmonary was called for further management [facility] History Medical History: Reports:: Hyperlipidemia, Hypertension Denies:: Cancer, Diabetes Mellitus Type 1, Diabetes Mellitus Type 2, MRSA *Have you ever received a pneumonia vaccine?: No *Have you received a flu vaccine this season?: No Other Medical History: Reports: Hypothyroidism Laterality Cases: Bilateral: Arthroscopy Hip, Arthroscopy Knee Amputation: No - *Social History Last grade of school completed: Some college Smoking Status: Never smoker Alcohol Intake: current Alcohol Intake Frequency:: holidays/special occasions only *Occupational Status:: retired Household Members: spouse *Travel in the last 8 weeks: None Family Hx:: Cancer, Coronary Artery Disease, Diabetes, Hypertension, Stroke ROS - Review of Systems Review of systems:: unable to obtain - Cons Reports anorexia, Reports body ache(s) - Card Reports shortness of breath, Reports shortness of breath with activity - Resp Respiratory: Reports shortness of breath, Reports chest congestion, Reports cough, Reports dyspnea on exertion, Reports excessive phlegm production Meds Home Medications Medication Instructions Recorded Confirmed Type Levothyroxine Sodium 125 mcg PO DAILY 10/21/20 10/22/20 History [Levothyroxine 125mcg (0.125mg) Tab] Pravastatin Sodium 10 mg PO HS 10/21/20 10/22/20 History Allergies Allergy/AdvReac Type Severity Reaction Status Date / Time No Known Allergies Allergy Unverified 10/22/20 08:44 Exam - Constitutional Constitutional:: Present: no acute distress, comfortable - HENMT Exam HENMT: Present: normocephalic, atraumatic - Eye Exam Eyes:: Present: normal appearance both eyes and related structures, eyelids normal - Neck Exam Neck:: Present: thyroid normal, no lymphadenopathy - Respiratory Exam Respiratory:: Present: respiratory distress, crackles. Absent: normal respiratory effort - Cardiovascular Exam Cardiac:: Present: S1, S2 - GI Exam GI:: Present: soft - Skin Exam Skin: Present: warm, no rash - Neurological Exam Neurological: Present: alert, awake, normal cognition - Extremities Exam Extremities: Present: no cyanosis, no clubbing, no edema - Psychiatric Exam Psychiatric: Present: normal affect Internal Medicine - CN: Reslt - Labs CBC & Chem 7: 10/24/20 06:00 10/24/20 06:00 Labs: Short CBC 10/24/20 Range/Units 06:00 WBC 13.9 H (4.8-10.8) K/mm3 Hgb 13.0 (12.2-16.2) g/dL Hct 38.1 (37.0-47.0) % Plt Count 256 (142-424) K/mm3 BMP 10/24/20 06:00 Sodium 142 Potassium 3.5 Chloride 106 Carbon Dioxide 27 BUN 21 H Creatinine 0.80 Glucose 106 H Calcium 8.2 L Cardiac Enzymes 10/24/20 Range/Units 06:00 Troponin I 0.10 H (0.00-0.034) ng/ml Liver Function 10/24/20 Range/Units 06:00 Total Bilirubin 0.8 (0.2-1.3) mg/dl AST 41 H (14-36) U/L ALT 22 (12-78) U/L Alkaline Phosphatase 74 (38-126) U/L Albumin 3.4 L (3.5-5.0) g/dl - ABG Interpretation ABG results: 10/21/20 10/22/20 10/23/20 22:18 07:41 06:00 ABG pH 7.54 H 7.46 H 7.50 H ABG pCO2 22.1 L 31.1 L 28.9 L ABG pO2 47.4 L 42.6 L 48.5 L ABG HCO3 18.6 L 21.5 L 21.9 L ABG Total CO2 19.3 L 22.5 L 22.8 L ABG O2 Saturation 88 L 81 L* 87 L* ABG Base Excess -3.9 L -2.3 -1.3 10/24/20 06:34 ABG pH 7.52 H ABG pCO2 28.1 L ABG pO2 43.1 L ABG HCO3 22.5 ABG Total CO2 23.4 ABG O2 Saturation 85 L* ABG Base Excess -0.3
--- NOTE | 2020-10-24 11:09 | CA_ITS ---
APPROVED REPORT Bilateral Lower Extremity Venous Study for DVT. Landscaping Supervisor: ANDREY Indications Lower Extremity Edema: Bilateral Shortness of breath PE Risk Factors Prior Phlebitis/DVT Bed Rest Prior Pulmonary Embolism COVID19, pneumonia Past History DVT : Pulmonary Embolism Vein Imaging CFV (R): compressive, spontaneous, phasic, augmentation FEM (R): compressive, spontaneous, phasic, augmentation POP (R): compressive, spontaneous, phasic, augmentation PTV (R): Compressible GSV (R): compressive, spontaneous, phasic, augmentation Peroneals (R):Compressible CFV (L): compressive, spontaneous, phasic, augmentation FEM (L): compressive, spontaneous, phasic, augmentation POP (L): compressive, spontaneous, phasic, augmentation PTV (L): Compressible GSV (L): compressive, spontaneous, phasic, augmentation Peroneals (L):Non-Compressible Findings No evidence of DVT or superficial thrombophlebitis in the veins scanned of the right lower extremity. Left peroneal vein appears dilated and noncompressible mid calf probable thrombus. Other deep veins of the LLE are negative for DVT. No SVT seen in LLE. Conclusion No evidence of DVT or superficial thrombophlebitis in the veins scanned of the right lower extremity. Left peroneal vein appears dilated and noncompressible mid calf probable thrombus. Other deep veins of the LLE are negative for DVT. No SVT seen in LLE. Critical Notification Critical Value: Yes Date: 10/24/2020 Time: 12:22 Physician Name: Kaylin LAY Electronically signed by : Connor Pena MD 10/24/2020 16:12:11
[2020-10-24 12:26] LABS: D-Dimer 2.69 ug/mL (0.0-0.5)
--- NOTE | 2020-10-24 15:06 | DIET.NUTRFU ---
Pt currently without diet order as she is too SOA to tolerate PO intake, pt may have nutritional supplement drinks/shakes by request.
[2020-10-25] VITALS (27 sets, daily range): BP systolic 56–139; BP diastolic 34–76; PULSE 50–110; RESP 22–41; TEMP 36.2–38.4; O2SAT 84–100
[2020-10-25 06:34] LABS: Basophils % 0.1 % (0.1-2.0); Eosinophils % 0.2 % (0.1-12.0); Hematocrit 40.5 % (37.0-47.0); Hemoglobin 13.4 g/dL (12.2-16.2); Lymphocytes # 0.9 K/mm3 (0.7-4.5); Lymphocytes % 6.4 % (10-50); Mean Corpuscular HGB Conc 33.1 g/dL (31.8-35.4); Mean Corpuscular Hemoglobin 30.6 pg (27.0-31.2); Mean Corpuscular Volume 92.4 fl (81-99); Mean Platelet Volume 8.7 fl (7.4-10.4); Monocytes # 0.4 K/mm3 (0.1-1.0); Monocytes % 2.7 % (1.7-9.3); Neutrophils # 12.3 K/mm3 (1.8-7.8); Neutrophils % 90.7 % (37.0-80.0); Platelet Count 240 K/mm3 (142-424); Red Blood Count 4.38 M/mm3 (4.20-5.40); White Blood Count 13.5 K/mm3 (4.8-10.8)
[2020-10-25 06:39] LABS: ABG Base Excess 0.6 mmol/L (-2.4-2.3); ABG HCO3 23.1 mmhg (22.0-26.0); ABG Oxygen Saturation 73 % (90-100); ABG PCO2 27.4 mmhg (35.0-45.0); ABG PH 7.54 mmol/L (7.35-7.45)
[2020-10-25 06:40] LABS: Oxygen 100 %
[2020-10-25 06:41] LABS: ABG PO2 33.6 mmhg (80-100); Allen's Test ACCEPTABLE; Source R RADIAL
[2020-10-25 06:42] LABS: MANUAL DIFFERENTIAL MANUAL DIFFERENTIAL (MANUAL DIFF)
[2020-10-25 06:43] LABS: Chloride 107 mmol/L (98-107); Sodium 140 mmol/L (136-145)
[2020-10-25 06:46] LABS: Alanine Aminotransferase 26 U/L (12-78); Albumin Level 3.3 g/dl (3.5-5.0); Alkaline Phosphatase 100 U/L (38-126); Aspartate Amino Transferase 36 U/L (14-36); Blood Urea Nitrogen 23 mg/dl (7-17); Calcium 8.5 mg/dl (8.4-10.2); Carbon Dioxide 28 mmol/L (22.0-30.0); Creatinine Clearance Estimated 88 mL/min (50-200); Estimated Glomerular Filt Rate 84 ml/min (>60); GFR (African American) 101 ML/MIN (>60); Globulin 3.3 g/dL (1.3-3.2); Glucose 93 mg/dl (74-100); Total Protein,Serum 6.6 g/dl (6.3-8.2)
--- NOTE | 2020-10-25 07:02 | HMH.ACPN2 ---
Internal Medicine - PN: Subj *Date: 10/25/20 *Time: 07:02 Interval history: Nursing staff reports change in patient's condition earlier this morning as she seemed to develop increased work of breathing with decreased level of consciousness. Patient had a nonrebreather applied over her Vapotherm and has gradually returned to what has been her baseline during this illness. Patient herself reports feeling short of breath earlier in the morning. Exam Vital signs and Labs for Last 24 Hours: Temp Pulse Resp BP Pulse Ox 98.4 F 96 H 23 139/70 86 L 10/25/20 00:00 10/25/20 00:00 10/25/20 00:00 10/25/20 00:00 10/25/20 00:00 Laboratory Results - last 24 hr 10/24/20 06:00: Total Counted 100, Neutrophils % (Manual) 80 H, Lymphocytes % (Manual) 16, Monocytes % (Manual) 4, Platelet Estimate Normal, RBC Morphology Normal 10/24/20 06:00: Sodium 142, Potassium 3.5, Chloride 106, Carbon Dioxide 27, Anion Gap 12.5, BUN 21 H, Creatinine 0.80, Estimated Creat Clear 89, Estimated GFR 72, Est GFR ( Amer) 87, Glucose 106 H, Calcium 8.2 L, Total Bilirubin 0.8, AST 41 H, ALT 22, Alkaline Phosphatase 74, C-Reactive Protein 68.1 H D, Total Protein 6.8, Albumin 3.4 L, Globulin 3.4 H, Albumin/Globulin Ratio 1.0 L, Procalcitonin 0.336 10/24/20 06:00: Troponin I 0.10 H 10/24/20 06:34: Specimen Source Left radial, O2 % 100 vapotherm, ABG pH 7.52 H, ABG pCO2 28.1 L, ABG pO2 43.1 L, ABG HCO3 22.5, ABG Total CO2 23.4, ABG O2 Saturation 85 L*, ABG Base Excess -0.3, Connor Test Acceptable 10/24/20 12:05: D-Dimer 2.69 H 10/25/20 06:00: WBC 13.5 H, RBC 4.38, Hgb 13.4, Hct 40.5, MCV 92.4, MCH 30.6, MCHC 33.1, RDW 13.0, Plt Count 240, MPV 8.7, Neut % (Auto) 90.7 H, Lymph % (Auto) 6.4 L, [place] % (Auto) 2.7, Eos % (Auto) 0.2, Baso % (Auto) 0.1, Neut # (Auto) 12.3 H, Lymph # (Auto) 0.9, [place] # (Auto) 0.4, Eos # (Auto) 0.0, Baso # (Auto) 0.0 10/25/20 06:00: Sodium 140, Potassium 3.0 L, Chloride 107, Carbon Dioxide 28, Anion Gap 8.0, BUN 23 H, Creatinine 0.70, Estimated Creat Clear 88, Estimated GFR 84, Est GFR ( Amer) 101, Glucose 93, Calcium 8.5, Total Bilirubin 1.0, AST 36, ALT 26, Alkaline Phosphatase 100, Total Protein 6.6, Albumin 3.3 L, Globulin 3.3 H, Albumin/Globulin Ratio 1.0 L 10/25/20 06:36: Specimen Source R radial, O2 % 100, ABG pH 7.54 H, ABG pCO2 27.4 L, ABG pO2 33.6 L, ABG HCO3 23.1, ABG Total CO2 24.0, ABG O2 Saturation 73 L*, ABG Base Excess 0.6, Connor Test Acceptable I & O for Last 24 hours: Intake & Output 10/22/20 10/23/20 10/24/20 10/25/20 11:59 11:59 11:59 11:59 Intake Total 1860 / 1860 2080 / 2080 1450 / 1450 960 / 960 Output Total 1800 / 1800 2400 / 2400 2600 / 2600 550 / 550 Balance 60 / 60 -320 / -320 -1150 / -1150 410 / 410 Weight 203 lb 9 oz 223 lb 7 oz 222 lb 10.67 oz Microbiology Reports for the Last 24 Hours: Microbiology 10/22/20 09:30 Nose - Nasal MRSA Culture - Final Negative Narrative: Patient looks more comfortable than yesterday morning. Current O2 sats are 87%. Lungs have diminished breath sounds throughout with basilar rales. Heart is slightly tachycardic. Abdomen is soft. Extremities have no edema. Blood gas from this morning shows worsening hypoxemia. This blood gas was done prior to the application of the nonrebreather Echocardiogram from yesterday shows ejection fraction of 55% Venous Doppler shows a left peroneal DVT Assessment and Plan (1) Acute hypoxemic respiratory failure Status: Acute Category: Medical Code(s): J96.01 - Acute respiratory failure with hypoxia (2) Viral pneumonia Status: Acute Category: Medical Code(s): J12.9 - Viral pneumonia, unspecified (3) COVID-19 virus infection Status: Acute Category: Medical Code(s): U07.1 - COVID-19 (4) Elevated troponin Status: Acute Category: Medical Code(s): R77.8 - Other specified abnormalities of plasma proteins (5) Hypothyroidism (acquired) Status: Acute Category: Medi
--- NOTE | 2020-10-25 07:06 | XR_ITS ---
PROCEDURE: XR CHEST PORTABLE CLINICAL HISTORY: worsening hypoxia COMPARISON: CR XR CHEST PORTABLE from 10/21/[address] ANGIO CHEST from 10/22/2020 CR XR CHEST PORTABLE from 10/22/2020 CR XR CHEST PORTABLE from 10/23/2020 FINDINGS: The cardiomediastinal silhouette and pulmonary vascularity are within normal limits. There are low lung volumes. There is diffuse bilateral ground-glass infiltrates consistent with Covid19 pneumonia. There is some sparing of the left apex. The pneumonia appears slightly improved on the left and probably unchanged on right. No evidence of pneumothorax. No acute bony abnormalities. IMPRESSION: Diffuse pneumonia with some improvement in the left lower lobe Dictated by: Connor Pena MD 10/25/2020 09:12 Connor Pena MD in [facility] 10/25/2020 09:12
[2020-10-25 07:33] LABS: Lymphocytes % 7 % (10-50); Monocytes % 2 % (2-9); Neutrophils % 91 % (42-76); Platelet Estimate Normal; RBC Morphology Normal; Total Cells Counted 100
--- NOTE | 2020-10-25 07:53 | PC.NURSE ---
SpO2 has been mid to high 80s throughout the night with Vapotherm. Patient has stated that she feels ok and does not feel short of breath. When patient turned side to side, SpO2 would drop into low 70s and slowly come back up once settled within a couple minutes. During this time, she states that she does not feel any more short of breath. This morning at approx. 0600, patient's SpO2 dropped to low 70s and patient stated she did not feel good and her skin was more pale in color. RT in the room and placed NRB over Vapotherm. SpO2 improved back to mid 80s and patient stated she felt better. Dr. Castro at bedside for morning rounds and told patient that we are doing everything possible to not intubate but it is still a possibility- patient agrees to intubation if necessary; 40mg IV Lasix ordered per Dr. Castro and given by this nurse. Breath sounds diminished with slight crackles to right base. Patient has trace generalized edema. Patient instructed to lay on side and to avoid rolling on back due to SpO2 being lower when on back. Attempted second IV with no success by this nurse and data warehouse consultant. Surgery department contacted for nurse to place ultrasound guided IV- she will return call when available. IV to right wrist infusing with no s/s of infiltration.
--- NOTE | 2020-10-25 08:52 | HMH.PULMPN ---
Internal Medicine - PN: Subj *Date: 10/25/20 *Time: 11:19 Interval history: Patient respiratory status continued to decline. Exam - Constitutional Comment:: Patient appears to be in moderate respiratory distress. Worsened from yesterday. - HENMT Exam HENMT: Present: atraumatic - Eye Exam Eyes:: Present: normal appearance both eyes and related structures - Neck Exam Neck:: Present: thyroid normal, no lymphadenopathy - Respiratory Exam Comments: Patient appeared to be in moderate respiratory distress. Bilateral coarse breath sounds unchanged from yesterday. Overnight patient had an episode of desaturation to 70s. Patient this morning in respiratory distress, unable to speak in complete sentences. On high flow nasal cannula and nonrebreather saturating 86%. Patient states that her breathing is getting worse. - Cardiovascular Exam Cardiac:: Present: S1, S2 - GI Exam GI:: Present: soft, no hepatosplenomegaly - Skin Exam Skin: Present: warm, no rash - Neurological Exam Neurological: Present: alert, awake, normal cognition - Extremities Exam Extremities: Present: no cyanosis, no clubbing, edema - Psychiatric Exam Psychiatric: Present: normal affect Assessment and Plan (1) Acute hypoxemic respiratory failure Status: Acute Category: Medical Code(s): J96.01 - Acute respiratory failure with hypoxia (2) Viral pneumonia Status: Acute Category: Medical Code(s): J12.9 - Viral pneumonia, unspecified (3) COVID-19 virus infection Status: Acute Category: Medical Code(s): U07.1 - COVID-19 (4) Elevated troponin Status: Acute Category: Medical Code(s): R77.8 - Other specified abnormalities of plasma proteins (5) Hypothyroidism (acquired) Status: Acute Category: Medical Code(s): E03.9 - Hypothyroidism, unspecified (6) Hyperlipidemia Status: Acute Category: Medical Code(s): E78.5 - Hyperlipidemia, unspecified (7) Hypothyroidism Status: Acute Qualifiers: Hypothyroidism type: acquired Qualified Code(s): E03.9 - Hypothyroidism, unspecified Category: Medical Code(s): E03.9 - Hypothyroidism, unspecified (8) Obesity Status: Chronic Qualifiers: Obesity type: due to excess calories Obesity classification: adult class 1 (BMI 30 - 34.9) Body mass index: BMI 30.0-30.9 Category: Medical Code(s): E66.9 - Obesity, unspecified (9) Hypokalemia Status: Acute Category: Medical Code(s): E87.6 - Hypokalemia - Assessment and plan all Dx Assessment and Plan for all problems:: #Acute hypoxic respiratory failure: #COVID-19 pneumonia: #Pneumonia: 65-year-old no prior respiratory complaints recent diagnosis of COVID-19 pneumonia with worsening symptoms presented to the hospital needing high flow nasal cannula to maintain oxygen saturations. CT on admission showed bilateral diffuse groundglass opacities and also showed questionable subacute to chronic pulmonary embolism. Creatinine stable on admission. Patient was initiated on vancomycin cefepime and azithromycin along with remdesivir and dexamethasone on admission. Patient respiratory status continued to be critical since admission needing 40 L 100% Vapotherm and has been gradually declining with frequent episodes of desaturations eventually this morning needing a combination of high flow nasal cannula and nonrebreather to maintain her saturations barely at 86%. ABG continued to show hypoxic respiratory failure and on examination patient today appeared to be in moderate respiratory distress worsened from yesterday. After discussions with the patient patient was made to intubate and mechanically ventilated the patient. Renal function stable. Noted to have hypokalemia, replaced by primary team. Plan: - Continue mechanical ventilatory support with lung protection, currently at 440 of tidal volume PEEP of 12 FiO2 of 80% and a rate of 24. - Continue famotidine twice daily, patient receiving full dose antico
--- NOTE | 2020-10-25 09:45 | PC.NURSE ---
pt intubated by Lauren Palma. 7.0 ET 19 @ the lip. OG tube 59 @ the lip. Dr. Negron ordered Fentanyl and Propofol gtts for sedation.
--- NOTE | 2020-10-25 09:56 | XR_ITS ---
PROCEDURE: XR CHEST PORTABLE CLINICAL HISTORY: intubation Respiratory failure COMPARISON: CT CT ANGIO CHEST from 10/22/2020 CR XR CHEST PORTABLE from 10/22/2020 CR XR CHEST PORTABLE from 10/23/2020 CR XR CHEST PORTABLE from 10/25/2020 FINDINGS: Endotracheal tube has been inserted. The tip is 2.5 cm above the gage and could be withdrawn approximately 1 cm. There is a nasogastric tube present with the tip in the region the fundus of the stomach. There is diffuse bilateral pneumonia which appears slightly worse but could be related to the low lung volumes. There is sparing of the left apex. No evidence of pneumothorax. IMPRESSION: Endotracheal tube and nasogastric tube has been placed in position as described above.. Dictated by: Connor Pena MD 10/25/2020 11:36 Connor Pena MD in [facility] 10/25/2020 11:36
--- NOTE | 2020-10-25 10:04 | P.PCN_ITS ---
[facility] Procedure Note Procedure Note:: Consulted for Intubation d/t worsening pneumonia related to Covid 19 and respiratory distress. Plan of care explained to pt. Lidocaine 100 mg IV, Propofol 100 mg IV, Succinylcholine 120 mg IV. DVL x1 with Monge 2 blade. Grade 1 view. 7.0 ETT secured at 20 cm at lip on right side. Bilateral breath sounds. Ongoing sedation per Dr. Negron.
[2020-10-25 10:23] LABS: Triglycerides 120 mg/dl (30-150)
--- NOTE | 2020-10-25 11:04 | PC.NURSE ---
Updated Dr. Castro. He ordered Levophed gtt secondary to hypotension from intubation. Order faxed to pharmacy.
[2020-10-25 11:05] LABS: ABG Base Excess -0.1 mmol/L (-2.4-2.3); ABG HCO3 23.7 mmhg (22.0-26.0); ABG Oxygen Saturation 98 % (90-100); ABG PCO2 34.1 mmhg (35.0-45.0); ABG PH 7.46 mmol/L (7.35-7.45); ABG TCO2 24.8 mmhg (23-27)
[2020-10-25 11:07] LABS: Allen's Test UNABLE; Oxygen 100 %; PEEP 12; Source Left Radial; Tidal Volume 440; Vent Rate 28
--- NOTE | 2020-10-25 11:30 | PC.NURSE ---
BP 56/34. Levo gtt started @ 20mcg/min
--- NOTE | 2020-10-25 11:43 | HMH.ACPN ---
Internal Medicine - PN: Subj *Date: 10/25/20 *Time: 11:43 Exam Vital signs and Labs for Last 24 Hours: Temp Pulse Resp BP Pulse Ox 101.2 F H 81 28 H 85/43 L 96 10/25/20 11:00 10/25/20 11:00 10/25/20 11:00 10/25/20 11:00 10/25/20 11:00 Laboratory Results - last 24 hr 10/24/20 12:05: D-Dimer 2.69 H 10/25/20 06:00: WBC 13.5 H, RBC 4.38, Hgb 13.4, Hct 40.5, MCV 92.4, MCH 30.6, MCHC 33.1, RDW 13.0, Plt Count 240, MPV 8.7, Neut % (Auto) 90.7 H, Lymph % (Auto) 6.4 L, [place] % (Auto) 2.7, Eos % (Auto) 0.2, Baso % (Auto) 0.1, Neut # (Auto) 12.3 H, Lymph # (Auto) 0.9, [place] # (Auto) 0.4, Eos # (Auto) 0.0, Baso # (Auto) 0.0, Total Counted 100, Neutrophils % (Manual) 91 H, Lymphocytes % (Manual) 7 L, Monocytes % (Manual) 2, Platelet Estimate Normal, RBC Morphology Normal 10/25/20 06:00: Sodium 140, Potassium 3.0 L, Chloride 107, Carbon Dioxide 28, Anion Gap 8.0, BUN 23 H, Creatinine 0.70, Estimated Creat Clear 88, Estimated GFR 84, Est GFR ( Amer) 101, Glucose 93, Calcium 8.5, Total Bilirubin 1.0, AST 36, ALT 26, Alkaline Phosphatase 100, Total Protein 6.6, Albumin 3.3 L, Globulin 3.3 H, Albumin/Globulin Ratio 1.0 L 10/25/20 06:10: Triglycerides 120 10/25/20 06:36: Specimen Source R radial, O2 % 100, ABG pH 7.54 H, ABG pCO2 27.4 L, ABG pO2 33.6 L, ABG HCO3 23.1, ABG Total CO2 24.0, ABG O2 Saturation 73 L*, ABG Base Excess 0.6, Connor Test Acceptable 10/25/20 11:03: Specimen Source Left radial, O2 % 100, ABG pH 7.46 H, ABG pCO2 34.1 L, ABG pO2 110.0 H, ABG HCO3 23.7, ABG Total CO2 24.8, ABG O2 Saturation 98, ABG Base Excess -0.1, Connor Test Unable, Vent Rate 28, Tidal Volume 440, PEEP 12 I & O for Last 24 hours: Intake & Output 10/22/20 10/23/20 10/24/20 10/25/20 23:59 23:59 23:59 23:59 Intake Total 2850 / 3580 1700 / 2540 1200 / 1200 720 / 720 Output Total 3800 / 4200 1200 / 3000 2350 / 2350 1600 / 1600 Balance -950 / -620 500 / -460 -1150 / -1150 -880 / -880 Weight 92.334 kg 101.35 kg 101 kg 101 kg Microbiology Reports for the Last 24 Hours: Microbiology 10/22/20 09:30 Nose - Nasal MRSA Culture - Final Negative Assessment and Plan (1) Acute hypoxemic respiratory failure Status: Acute Category: Medical Code(s): J96.01 - Acute respiratory failure with hypoxia (2) Viral pneumonia Status: Acute Category: Medical Code(s): J12.9 - Viral pneumonia, unspecified (3) COVID-19 virus infection Status: Acute Category: Medical Code(s): U07.1 - COVID-19 (4) Elevated troponin Status: Acute Category: Medical Code(s): R77.8 - Other specified abnormalities of plasma proteins (5) Hypothyroidism (acquired) Status: Acute Category: Medical Code(s): E03.9 - Hypothyroidism, unspecified (6) Hyperlipidemia Status: Acute Category: Medical Code(s): E78.5 - Hyperlipidemia, unspecified (7) Hypothyroidism Status: Acute Qualifiers: Hypothyroidism type: acquired Qualified Code(s): E03.9 - Hypothyroidism, unspecified Category: Medical Code(s): E03.9 - Hypothyroidism, unspecified (8) Obesity Status: Chronic Qualifiers: Obesity type: due to excess calories Obesity classification: adult class 1 (BMI 30 - 34.9) Body mass index: BMI 30.0-30.9 Category: Medical Code(s): E66.9 - Obesity, unspecified (9) Hypokalemia Status: Acute Category: Medical Code(s): E87.6 - Hypokalemia The patient's infection will respond to the chosen ABx?: Yes Is the patient receiving the right drug, dose, and route?: Yes Could a more targeted ABx be ordered?: No
--- NOTE | 2020-10-25 12:00 | PC.NURSE ---
BP 127/63. Levo gtt decreased to 10mcg/min.
--- NOTE | 2020-10-25 13:00 | PC.NURSE ---
BP 96/56. Levo gtt decreased to 5mcg/min.
--- NOTE | 2020-10-25 14:47 | PC.NURSE ---
Levo gtt infusing @ 5mcg/min. BP 109/63. HR 66. Propofol gtt @ 50mcg/kg/min and Fentanyl gtt @ 100mcg/hr.
--- NOTE | 2020-10-25 16:00 | PC.NURSE ---
BP 117/65. Levo gtt decreased to 2mcg/min.
--- NOTE | 2020-10-25 16:21 | PC.NURSE ---
BP 117/65. Levo gtt turned OFF.
--- NOTE | 2020-10-25 16:29 | PC.NURSE ---
BP 109/62. Levo continues to be on HOLD
--- NOTE | 2020-10-25 16:43 | PC.NURSE ---
BP 69/42. Levo gtt turned back on at 5mcg/min.
--- NOTE | 2020-10-25 16:59 | PC.NURSE ---
BP 134/74. Decreased Levo gtt to 2mcg/min.
--- NOTE | 2020-10-25 17:21 | PC.NURSE ---
BP 94/53. Levo gtt continues @ 2mcg/min
--- NOTE | 2020-10-25 18:15 | PC.NURSE ---
BP 80/44. Levo gtt increased to 5mcg/min
--- NOTE | 2020-10-25 18:56 | PC.NURSE ---
BP 129/70. Levo gtt decreased to 4mcg/min.
[2020-10-25 23:23] LABS: Vancomycin,Trough 17.6 ug/mL (5.0-10.0)
[2020-10-26] VITALS (35 sets, daily range): BP systolic 84–132; BP diastolic 53–82; PULSE 48–95; RESP 22–29; TEMP 35.8–37.2; O2SAT 92–100; BMI 34.2
--- NOTE | 2020-10-26 02:55 | PC.NURSE ---
She continues in contact and airborne precautions. She has been bradycardic on telemetry. No edema noted. Scant amount of blood tinged secretions suctioned orally. Vent settings are as follows: AC mode, TV 440, PEeP 12, Rate 24, 80% FiO2. She has not over breathed the vent. F/c is patent and draining yellow, clear urine. Urine has changed to a assistant bookkeeper yellow since the beginning of the shift. HOB elevated 30 degrees. Ambu bag available at the bedside. Preventative DSG placed on coccyx during bath.
--- NOTE | 2020-10-26 05:00 | XR_ITS ---
PROCEDURE: XR CHEST PORTABLE CLINICAL HISTORY: Pt intubated. Follow-up Covid19 pneumonia COMPARISON: CT CT ANGIO CHEST from 10/22/2020 CR XR CHEST PORTABLE from 10/23/2020 CR XR CHEST PORTABLE from 10/25/2020 CR XR CHEST PORTABLE from 10/25/2020 FINDINGS: Endotracheal tube tip is in good position 5 cm above the gage. Nasogastric tube tip is not visible on the image but below the GE junction. Diffuse bilateral airspace disease once again noted which appears slightly improved but could be related to the degree of inspiration. No acute bony abnormalities. IMPRESSION: Nasogastric tube and endotracheal tube in good position. Diffuse airspace disease which appears slightly improved Dictated by: Connor Pena MD 10/26/2020 07:33 Connor Pena MD in [facility] 10/26/2020 07:33
--- NOTE | 2020-10-26 06:14 | PC.NURSE ---
Addendum entered by Antoine Kingston RN 10/26/20 06:15: Heart rate has increased to 60s since sedation has been weaned. Original Note: Attempted to wean off levophed but was unsuccessful. Her SBP dropped to 84 and her MAP was <65. Placed back on levophed at 2mcg/min. Sedation has also been slightly weaned r/t to patient with pinpoint pupils and RASS score of -3.
[2020-10-26 06:28] LABS: Basophils % 0.1 % (0.1-2.0); Eosinophils % 0.2 % (0.1-12.0); Hematocrit 34.8 % (37.0-47.0); Lymphocytes # 0.8 K/mm3 (0.7-4.5); Lymphocytes % 6.5 % (10-50); Mean Corpuscular HGB Conc 32.4 g/dL (31.8-35.4); Mean Corpuscular Hemoglobin 30.2 pg (27.0-31.2); Mean Corpuscular Volume 93.1 fl (81-99); Mean Platelet Volume 8.7 fl (7.4-10.4); Monocytes # 0.3 K/mm3 (0.1-1.0); Monocytes % 2.5 % (1.7-9.3); Neutrophils # 10.5 K/mm3 (1.8-7.8); Neutrophils % 90.8 % (37.0-80.0); Platelet Count 233 K/mm3 (142-424); Red Blood Count 3.73 M/mm3 (4.20-5.40); Red Cell Distribution Width 13.3 % (11.5-17.5); White Blood Count 11.6 K/mm3 (4.8-10.8)
[2020-10-26 06:30] LABS: Chloride 111 mmol/L (98-107); Potassium 3.4 mmoL/L (3.5-5.1); Sodium 140 mmol/L (136-145)
[2020-10-26 06:32] LABS: Alanine Aminotransferase 19 U/L (12-78); Aspartate Amino Transferase 21 U/L (14-36); Blood Urea Nitrogen 19 mg/dl (7-17); Creatinine Clearance Estimated 90 mL/min (50-200); Estimated Glomerular Filt Rate 84 ml/min (>60); GFR (African American) 101 ML/MIN (>60)
[2020-10-26 06:33] LABS: Albumin Level 2.7 g/dl (3.5-5.0); Albumin/Globulin Ratio 0.9 (1.1-1.8); Alkaline Phosphatase 74 U/L (38-126); Anion Gap 8.4 mEq/L (5-15); Bilirubin,Total 0.6 mg/dl (0.2-1.3); Carbon Dioxide 24 mmol/L (22.0-30.0); Glucose 125 mg/dl (74-100); Total Protein,Serum 5.7 g/dl (6.3-8.2)
[2020-10-26 06:43] LABS: Hemoglobin 11.3 g/dL (12.2-16.2); MANUAL DIFFERENTIAL MANUAL DIFFERENTIAL (MANUAL DIFF)
[2020-10-26 06:44] LABS: Calcium 7.4 mg/dl (8.4-10.2)
[2020-10-26 07:01] LABS: ABG Base Excess -5.5 mmol/L (-2.4-2.3); ABG HCO3 19.7 mmhg (22.0-26.0); ABG Oxygen Saturation 96 % (90-100); ABG PCO2 34.4 mmhg (35.0-45.0); ABG PH 7.38 mmol/L (7.35-7.45); ABG PO2 82.5 mmhg (80-100); ABG TCO2 20.7 mmhg (23-27)
[2020-10-26 07:08] LABS: Allen's Test ACCEPTABLE; Oxygen 80 %; PEEP 12; Source Left Radial; Tidal Volume 440; Vent Rate 24
--- NOTE | 2020-10-26 07:32 | HMH.ACPN2 ---
Internal Medicine - PN: Subj *Date: 10/26/20 *Time: 07:32 Interval history: No acute events overnight. Patient is remained stable on the vent. She remains on low-dose of Levophed to maintain blood pressure support. Exam Vital signs and Labs for Last 24 Hours: Temp Pulse Resp BP Pulse Ox 97.0 F L 80 24 93/62 L 99 10/26/20 06:30 10/26/20 06:30 10/26/20 06:30 10/26/20 06:30 10/26/20 06:30 Laboratory Results - last 24 hr 10/25/20 06:00: Total Counted 100, Neutrophils % (Manual) 91 H, Lymphocytes % (Manual) 7 L, Monocytes % (Manual) 2, Platelet Estimate Normal, RBC Morphology Normal 10/25/20 06:10: Triglycerides 120 10/25/20 11:03: Specimen Source Left radial, O2 % 100, ABG pH 7.46 H, ABG pCO2 34.1 L, ABG pO2 110.0 H, ABG HCO3 23.7, ABG Total CO2 24.8, ABG O2 Saturation 98, ABG Base Excess -0.1, Connor Test Unable, Vent Rate 28, Tidal Volume 440, PEEP 12 10/25/20 22:55: Vancomycin Trough 17.6 H 10/26/20 05:25: WBC 11.6 H, RBC 3.73 L, Hgb 11.3 L D, Hct 34.8 L, MCV 93.1, MCH 30.2, MCHC 32.4, RDW 13.3, Plt Count 233, MPV 8.7, Neut % (Auto) 90.8 H, Lymph % (Auto) 6.5 L, [place] % (Auto) 2.5, Eos % (Auto) 0.2, Baso % (Auto) 0.1, Neut # (Auto) 10.5 H, Lymph # (Auto) 0.8, [place] # (Auto) 0.3, Eos # (Auto) 0.0, Baso # (Auto) 0.0 10/26/20 05:25: Sodium 140, Potassium 3.4 L, Chloride 111 H, Carbon Dioxide 24, Anion Gap 8.4, BUN 19 H, Creatinine 0.70, Estimated Creat Clear 90, Estimated GFR 84, Est GFR ( Amer) 101, Glucose 125 H D, Calcium 7.4 L D, Total Bilirubin 0.6, AST 21 D, ALT 19 D, Alkaline Phosphatase 74, Total Protein 5.7 L, Albumin 2.7 L D, Globulin 3.0, Albumin/Globulin Ratio 0.9 L 10/26/20 07:00: Specimen Source Left radial, O2 % 80, ABG pH 7.38, ABG pCO2 34.4 L, ABG pO2 82.5, ABG HCO3 19.7 L, ABG Total CO2 20.7 L, ABG O2 Saturation 96, ABG Base Excess -5.5 L, Connor Test Acceptable, Vent Rate 24, Tidal Volume 440, PEEP 12 I & O for Last 24 hours: Intake & Output 10/23/20 10/24/20 10/25/20 10/26/20 11:59 11:59 11:59 11:59 Intake Total 2080 / 2080 1450 / 1450 1080 / 1080 4582.366 / 4582.366 Output Total 2400 / 2400 2600 / 2600 2150 / 2150 1133 / 1133 Balance -320 / -320 -1150 / -1150 -1070 / -1070 3449.366 / 3449.366 Weight 223 lb 7 oz 222 lb 10.67 oz 225 lb 14.4 oz Microbiology Reports for the Last 24 Hours: Microbiology 10/25/20 10:20 Lung,Right Lower Lobe Gram Stain - Final Narrative: Patient is awake with eyes open. She can answer some questions with nods of the head. Pupils are reactive. Patient is intubated. Lungs have diminished breath sounds posteriorly. Heart has a regular rate and rhythm. Abdomen is obese and soft. Extremities have no edema. Urine output has been between 50 and 100 mL/h Chest x-ray shows improvement in pneumonia Echocardiogram shows normal ejection fraction CT scan it showed pulmonary embolism in the left lung Venous Doppler has showed peroneal DVT in the left lower leg Assessment and Plan (1) Acute hypoxemic respiratory failure Status: Acute Category: Medical Code(s): J96.01 - Acute respiratory failure with hypoxia (2) Viral pneumonia Status: Acute Category: Medical Code(s): J12.9 - Viral pneumonia, unspecified (3) COVID-19 virus infection Status: Acute Category: Medical Code(s): U07.1 - COVID-19 (4) Elevated troponin Status: Acute Category: Medical Code(s): R77.8 - Other specified abnormalities of plasma proteins (5) Hypothyroidism (acquired) Status: Acute Category: Medical Code(s): E03.9 - Hypothyroidism, unspecified (6) Hyperlipidemia Status: Acute Category: Medical Code(s): E78.5 - Hyperlipidemia, unspecified (7) Hypothyroidism Status: Acute Qualifiers: Hypothyroidism type: acquired Qualified Code(s): E03.9 - Hypothyroidism, unspecified Category: Medical Code(s): E03.9 - Hypothyroidism, unspecified (8) Obesity Status: Chronic Qualifiers: Obesity type: due to excess calories Obes
--- NOTE | 2020-10-26 07:45 | DIET.NUTRFU ---
Addendum entered by Shy Chavis 10/28/20 16:45: Pt tolerating tube feeds well at goal rate. No abdominal s/s poor tolerance, GRV <140, weight stable. She has not yet had a BM. Continues on propofol, IVF dc'd-water flushes of 250ml q 4h added to TF order. Addendum entered by Shy Chavis 10/26/20 14:14: advance to goal rate by 10ml/h q 8h Original Note: Pt intubated, nutritional consult to initiate tube feeding received. Recommend initiating continuous tube feeding regimen of Pulmocare 1.5 at 20ml/h and advance by 10ml/h as tolerated to goal rate of 46 ml/hr. Pt currently receiving IVF, recommend minimal water flushes of 30-90ml q 4h. If IVF dc'd, add water flushes of 250ml q 4h. Pt currently receiving significant additional kcal from propofol. Nutritional care plan to initiate hypocaloric feedings and advance to within 75% of needs over 3-5 days as tolerated per ASPEN guidelines for critical care/COVID. Will monitor pt tolerance, fluids, propofol to alter regimen as indicated.
[2020-10-26 07:48] LABS: Lymphocytes % 10 % (10-50); Monocytes % 4 % (2-9); Neutrophils % 86 % (42-76); Platelet Estimate Normal; RBC Morphology Normal; Total Cells Counted 100
--- NOTE | 2020-10-26 08:00 | PC.NURSE ---
gastric residual 0mL. Tubefeed (Pulmocare) started @ 20mL/hr. Goal rate is 46mL/hr.
--- NOTE | 2020-10-26 09:15 | HMH.PULMPN ---
Internal Medicine - PN: Subj *Date: 10/26/20 *Time: 10:48 Interval history: No acute respiratory vents post intubation Exam - Constitutional Constitutional:: Present: no acute distress, comfortable - HENMT Exam HENMT: Present: normocephalic, moist mucous membranes - Eye Exam Eyes:: Present: eyelids normal - Neck Exam Neck:: Present: normal visual inspection, thyroid normal - Respiratory Exam Respiratory:: Present: bibailar crackels heard - Cardiovascular Exam Cardiac:: Present: S1, S2 - GI Exam GI:: Present: soft, no hepatosplenomegaly - Skin Exam Skin: Present: warm, no rash - Extremities Exam Extremities: Present: no cyanosis, no clubbing, edema Assessment and Plan (1) Acute hypoxemic respiratory failure Status: Acute Category: Medical Code(s): J96.01 - Acute respiratory failure with hypoxia (2) Viral pneumonia Status: Acute Category: Medical Code(s): J12.9 - Viral pneumonia, unspecified (3) COVID-19 virus infection Status: Acute Category: Medical Code(s): U07.1 - COVID-19 (4) Elevated troponin Status: Acute Category: Medical Code(s): R77.8 - Other specified abnormalities of plasma proteins (5) Hypothyroidism (acquired) Status: Acute Category: Medical Code(s): E03.9 - Hypothyroidism, unspecified (6) Hyperlipidemia Status: Acute Category: Medical Code(s): E78.5 - Hyperlipidemia, unspecified (7) Hypothyroidism Status: Acute Qualifiers: Hypothyroidism type: acquired Qualified Code(s): E03.9 - Hypothyroidism, unspecified Category: Medical Code(s): E03.9 - Hypothyroidism, unspecified (8) Obesity Status: Chronic Qualifiers: Obesity type: due to excess calories Obesity classification: adult class 1 (BMI 30 - 34.9) Body mass index: BMI 30.0-30.9 Category: Medical Code(s): E66.9 - Obesity, unspecified (9) Hypokalemia Status: Acute Category: Medical Code(s): E87.6 - Hypokalemia - Assessment and plan all Dx Assessment and Plan for all problems:: #Acute hypoxic respiratory failure: #COVID-19 pneumonia: #Pneumonia: 65-year-old no prior respiratory complaints recent diagnosis of COVID-19 pneumonia with worsening symptoms presented to the hospital needing high flow nasal cannula to maintain oxygen saturations. CT on admission showed bilateral diffuse groundglass opacities and also showed questionable subacute to chronic pulmonary embolism. Creatinine stable on admission. Patient was initiated on vancomycin cefepime and azithromycin along with remdesivir and dexamethasone on admission. Patient respiratory status continued to be critical since admission needing 40 L 100% Vapotherm and has been gradually declining with frequent episodes of desaturations eventually this morning needing a combination of high flow nasal cannula and nonrebreather to maintain her saturations barely at 86%. ABG continued to show hypoxic respiratory failure and on examination patient today appeared to be in moderate respiratory distress worsened from yesterday. After discussions with the patient patient was made to intubate and mechanically ventilated the patient. Plan: Intubated and sedated with propofol and fentanyl. Triglycerides 120. We will closely monitor. Continue Analgo-sedation with propofol and fentanyl with RASS goal of 0 to 1 and CPOT goal of less than or equal to 2. Patient respiratory status remained stable post intubation, vent settings decreased today, currently on PEEP of 1265% FiO2 and a rate of 22. We will wean FiO2 as tolerated to 50% with O2 saturation goal of 80 to 92%. ABG within normal limits. Chest x-ray improved from yesterday. Continue remdesivir and dexamethasone for COVID-19 pneumonia. DuoNebs every 6 hours scheduled Continue vancomycin, cefepime for 7 days and azithromycin for 5 days. Continue full dose anticoagulation for PE and DVT Renal function creatinine stable. Patient still found to be hyperkalemic with a K of 3.
[2020-10-26 09:44] LABS: Magnesium 2.2 mg/dl (1.6-2.3)
--- NOTE | 2020-10-26 09:49 | HMH.PHACONS ---
- Pharmacy Consult Date: 10/26/20 Time: 09:49 Referring provider: DR. BOLTON Reason for Consult:: VANCOMYCIN TROUGH LEVEL Allergies and ADEs:: Allergies Allergy/AdvReac Type Severity Reaction Status Date / Time No Known Allergies Allergy Unverified 10/22/20 08:44 Home Medications:: Home Medications Medication Instructions Recorded Confirmed Type Levothyroxine Sodium 125 mcg PO DAILY 10/21/20 10/22/20 History [Levothyroxine 125mcg (0.125mg) Tab] Pravastatin Sodium 10 mg PO HS 10/21/20 10/22/20 History Height: 1.73 m Weight: 102.467 kg Laboratory Results:: Laboratory Results - last 24 hr 10/25/20 06:10: Triglycerides 120 10/25/20 11:03: Specimen Source Left radial, O2 % 100, ABG pH 7.46 H, ABG pCO2 34.1 L, ABG pO2 110.0 H, ABG HCO3 23.7, ABG Total CO2 24.8, ABG O2 Saturation 98, ABG Base Excess -0.1, Connor Test Unable, Vent Rate 28, Tidal Volume 440, PEEP 12 10/25/20 22:55: Vancomycin Trough 17.6 H 10/26/20 05:25: WBC 11.6 H, RBC 3.73 L, Hgb 11.3 L D, Hct 34.8 L, MCV 93.1, MCH 30.2, MCHC 32.4, RDW 13.3, Plt Count 233, MPV 8.7, Neut % (Auto) 90.8 H, Lymph % (Auto) 6.5 L, [place] % (Auto) 2.5, Eos % (Auto) 0.2, Baso % (Auto) 0.1, Neut # (Auto) 10.5 H, Lymph # (Auto) 0.8, [place] # (Auto) 0.3, Eos # (Auto) 0.0, Baso # (Auto) 0.0, Total Counted 100, Neutrophils % (Manual) 86 H, Lymphocytes % (Manual) 10, Monocytes % (Manual) 4, Platelet Estimate Normal, RBC Morphology Normal 10/26/20 05:25: Sodium 140, Potassium 3.4 L, Chloride 111 H, Carbon Dioxide 24, Anion Gap 8.4, BUN 19 H, Creatinine 0.70, Estimated Creat Clear 90, Estimated GFR 84, Est GFR ( Amer) 101, Glucose 125 H D, Calcium 7.4 L D, Total Bilirubin 0.6, AST 21 D, ALT 19 D, Alkaline Phosphatase 74, Total Protein 5.7 L, Albumin 2.7 L D, Globulin 3.0, Albumin/Globulin Ratio 0.9 L 10/26/20 05:25: Magnesium 2.2 10/26/20 07:00: Specimen Source Left radial, O2 % 80, ABG pH 7.38, ABG pCO2 34.4 L, ABG pO2 82.5, ABG HCO3 19.7 L, ABG Total CO2 20.7 L, ABG O2 Saturation 96, ABG Base Excess -5.5 L, Connor Test Acceptable, Vent Rate 24, Tidal Volume 440, PEEP 12 Medical History: Reports:: Hyperlipidemia, Hypertension Denies:: Cancer, Diabetes Mellitus Type 1, Diabetes Mellitus Type 2, MRSA Assessment and Plan (1) Acute hypoxemic respiratory failure Status: Acute Category: Medical Code(s): J96.01 - Acute respiratory failure with hypoxia (2) Viral pneumonia Status: Acute Category: Medical Code(s): J12.9 - Viral pneumonia, unspecified (3) COVID-19 virus infection Status: Acute Category: Medical Code(s): U07.1 - COVID-19 (4) Elevated troponin Status: Acute Category: Medical Code(s): R77.8 - Other specified abnormalities of plasma proteins (5) Hypothyroidism (acquired) Status: Acute Category: Medical Code(s): E03.9 - Hypothyroidism, unspecified (6) Hyperlipidemia Status: Acute Category: Medical Code(s): E78.5 - Hyperlipidemia, unspecified (7) Hypothyroidism Status: Acute Qualifiers: Hypothyroidism type: acquired Qualified Code(s): E03.9 - Hypothyroidism, unspecified Category: Medical Code(s): E03.9 - Hypothyroidism, unspecified (8) Obesity Status: Chronic Qualifiers: Obesity type: due to excess calories Obesity classification: adult class 1 (BMI 30 - 34.9) Body mass index: BMI 30.0-30.9 Category: Medical Code(s): E66.9 - Obesity, unspecified (9) Hypokalemia Status: Acute Category: Medical Code(s): E87.6 - Hypokalemia - Assessment and plan all Dx Assessment and Plan for all problems:: BASED ON PATIENT FACTORS AND VANCOMYCIN TROUGH LEVEL, RECOMMEND CONTINUING VANCOMYCIN 1500 MG IV Q12H. PHARMACY WILL CONTINUE TO MONITOR DAILY AND ADJUST APPROPRIATE.
--- NOTE | 2020-10-26 11:30 | PC.NURSE ---
Pt agitated and restless. Is able to follow commands by nodding head yes and/or no. Fentanyl 12.5mcg IV prn x 2 doses given (1100 and 1115). Pt still agitated and restless. CPOT>2. Fentanyl gtt increased to 125mcg/hr.
--- NOTE | 2020-10-26 12:00 | PC.NURSE ---
gastric residual 20mL. Tubefeed rate increased to 30mL/hr.
--- NOTE | 2020-10-26 14:30 | PC.NURSE ---
Pt agitated and restless. Continues to follow commands by nodding head yes and/or no. Fentanyl 12.5mcg IV prn x 2 doses given (1400 and 1415). Pt still agitated and restless. CPOT>2. Fentanyl gtt increased to 150mcg/hr.
--- NOTE | 2020-10-26 16:00 | PC.NURSE ---
gastric residual 0mL.
[2020-10-27] VITALS (34 sets, daily range): BP systolic 90–122; BP diastolic 49–77; PULSE 60–98; RESP 20–26; TEMP 36.5–37.9; O2SAT 90–97; BMI 35.2
--- NOTE | 2020-10-27 02:37 | PC.NURSE ---
She continues to be able to follow some commands. She can move her arms when asked although there is only slight movement. She closes and opens her eyes when asked and will nod yes/no to questions. NSR on telemetry. Attempting to wean off levophed at this time. Levophed has been off since 214. Vent settings are as follows: AC mode, TV 440, PEEP 12, Rate 22, FiO2 60%. No changes in vent settings tonight.
--- NOTE | 2020-10-27 05:00 | XR_ITS ---
PROCEDURE: XR CHEST PORTABLE CLINICAL HISTORY: Pt intubated. Follow-up pneumonia COMPARISON: 10/26/2019 FINDINGS: 3:41 a.m.. Endotracheal tube tip is slightly high at 6 cm above the gage and could be advanced 2 cm. There are low lung volumes with mild diffuse bilateral pneumonia in the right upper lobe, right lower lobe, and left lower lobe. There is space disease appears worse but could be due to the low lung volumes. Nasogastric tube is present with tip in the region of the stomach. No evidence of pneumothorax. A small focal opacity is noted in the right upper lobe laterally may be due to an area of atelectasis or more dense consolidation. No acute bony abnormalities. IMPRESSION: 1. Endotracheal tube tip slightly high and could be advanced 2 cm. 2. Diffuse bilateral pneumonia Dictated by: Connor Pena MD 10/27/2020 06:03 Connor Pena MD in [facility] 10/27/2020 06:03
[2020-10-27 05:11] LABS: Eosinophils % 0.2 % (0.1-12.0); Hematocrit 32.7 % (37.0-47.0); Hemoglobin 10.5 g/dL (12.2-16.2); Lymphocytes # 0.4 K/mm3 (0.7-4.5); Lymphocytes % 3.9 % (10-50); Mean Corpuscular Hemoglobin 30.6 pg (27.0-31.2); Mean Corpuscular Volume 95.5 fl (81-99); Mean Platelet Volume 9.1 fl (7.4-10.4); Monocytes # 0.4 K/mm3 (0.1-1.0); Monocytes % 3.3 % (1.7-9.3); Neutrophils # 9.9 K/mm3 (1.8-7.8); Neutrophils % 92.5 % (37.0-80.0); Platelet Count 218 K/mm3 (142-424); Red Blood Count 3.42 M/mm3 (4.20-5.40); Red Cell Distribution Width 13.1 % (11.5-17.5); White Blood Count 10.7 K/mm3 (4.8-10.8)
[2020-10-27 05:14] LABS: Chloride 113 mmol/L (98-107); Potassium 4.1 mmoL/L (3.5-5.1); Sodium 139 mmol/L (136-145)
[2020-10-27 05:16] LABS: Alanine Aminotransferase 16 U/L (12-78); Aspartate Amino Transferase 16 U/L (14-36); Blood Urea Nitrogen 19 mg/dl (7-17); Creatinine Clearance Estimated 92 mL/min (50-200); Estimated Glomerular Filt Rate 72 ml/min (>60); GFR (African American) 87 ML/MIN (>60)
[2020-10-27 05:17] LABS: Albumin Level 2.6 g/dl (3.5-5.0); Albumin/Globulin Ratio 0.9 (1.1-1.8); Alkaline Phosphatase 71 U/L (38-126); Anion Gap 8.1 mEq/L (5-15); Bilirubin,Total 0.4 mg/dl (0.2-1.3); Calcium 7.5 mg/dl (8.4-10.2); Carbon Dioxide 22 mmol/L (22.0-30.0); Glucose 111 mg/dl (74-100); Total Protein,Serum 5.6 g/dl (6.3-8.2)
[2020-10-27 05:42] LABS: MANUAL DIFFERENTIAL MANUAL DIFFERENTIAL (MANUAL DIFF)
[2020-10-27 06:43] LABS: ABG Base Excess -6.4 mmol/L (-2.4-2.3); ABG HCO3 19.7 mmhg (22.0-26.0); ABG Oxygen Saturation 92 % (90-100); ABG PH 7.32 mmol/L (7.35-7.45); ABG PO2 61.3 mmhg (80-100); ABG TCO2 20.9 mmhg (23-27)
[2020-10-27 06:47] LABS: Allen's Test Patient Unable; Oxygen 80 %; PEEP 12; Source Right Radial; Tidal Volume 440; Vent Rate 24
--- NOTE | 2020-10-27 07:53 | HMH.ACPN2 ---
Internal Medicine - PN: Subj *Date: 10/27/20 *Time: 07:53 Interval history: Patient remains intubated and lightly sedated. Over the last 24 hours FiO2 has gradually been weaned to current setting of 50%. Nursing staff reports no acute issues overnight. Tube feedings were started yesterday and patient has met her goal right earlier this morning. Exam Vital signs and Labs for Last 24 Hours: Temp Pulse Resp BP Pulse Ox 97.9 F 77 22 95/55 L 97 10/27/20 06:19 10/27/20 06:20 10/27/20 06:20 10/27/20 06:19 10/27/20 06:20 Laboratory Results - last 24 hr 10/26/20 05:25: Magnesium 2.2 10/27/20 04:10: WBC 10.7, RBC 3.42 L, Hgb 10.5 L, Hct 32.7 L, MCV 95.5, MCH 30.6, MCHC 32.0, RDW 13.1, Plt Count 218, MPV 9.1, Neut % (Auto) 92.5 H, Lymph % (Auto) 3.9 L, [place] % (Auto) 3.3, Eos % (Auto) 0.2, Baso % (Auto) 0.0 L, Neut # (Auto) 9.9 H, Lymph # (Auto) 0.4 L, [place] # (Auto) 0.4, Eos # (Auto) 0.0, Baso # (Auto) 0.0 10/27/20 04:10: Sodium 139, Potassium 4.1 D, Chloride 113 H, Carbon Dioxide 22, Anion Gap 8.1, BUN 19 H, Creatinine 0.80, Estimated Creat Clear 92, Estimated GFR 72, Est GFR ( Amer) 87, Glucose 111 H, Calcium 7.5 L, Total Bilirubin 0.4, AST 16, ALT 16, Alkaline Phosphatase 71, Total Protein 5.6 L, Albumin 2.6 L, Globulin 3.0, Albumin/Globulin Ratio 0.9 L 10/27/20 07:00: Specimen Source Right radial, O2 % 80, ABG pH 7.32 L, ABG pCO2 39.0, ABG pO2 61.3 L, ABG HCO3 19.7 L, ABG Total CO2 20.9 L, ABG O2 Saturation 92, ABG Base Excess -6.4 L, Connor Test Patient unable, Vent Rate 24, Tidal Volume 440, PEEP 12 I & O for Last 24 hours: Intake & Output 10/24/20 10/25/20 10/26/20 10/27/20 11:59 11:59 11:59 11:59 Intake Total 1450 / 1450 1080 / 1080 4582.366 / 4582.366 4391.749 / 4391.749 Output Total 2600 / 2600 2150 / 2150 1275 / 1290 985 / 985 Balance -1150 / -1150 -1070 / -1070 3307.366 / 3292.366 3406.749 / 3406.749 Weight 222 lb 10.67 oz 225 lb 14.4 oz 232 lb 8 oz Microbiology Reports for the Last 24 Hours: Microbiology 10/21/20 22:30 Blood Blood Culture - Final NO GROWTH AFTER 5 DAYS Narrative: Patient will open her eyes to vocal stimulation. She can follow commands. Patient can answer some questions with movements of the head. Lungs have rales on the right anteriorly and laterally. Diminished breath sounds in the bases posteriorly. Heart has a regular rate and rhythm. Abdomen is soft. Lower extremities have no edema. [place] catheter is in place. Patient is been a positive fluid balance over the last 24 hours Cultures remain negative for bacterial growth. MRSA screen was negative. Assessment and Plan (1) Acute hypoxemic respiratory failure Status: Acute Category: Medical Code(s): J96.01 - Acute respiratory failure with hypoxia (2) Viral pneumonia Status: Acute Category: Medical Code(s): J12.9 - Viral pneumonia, unspecified (3) COVID-19 virus infection Status: Acute Category: Medical Code(s): U07.1 - COVID-19 (4) Elevated troponin Status: Acute Category: Medical Code(s): R77.8 - Other specified abnormalities of plasma proteins (5) Hypothyroidism (acquired) Status: Acute Category: Medical Code(s): E03.9 - Hypothyroidism, unspecified (6) Hyperlipidemia Status: Acute Category: Medical Code(s): E78.5 - Hyperlipidemia, unspecified (7) Hypothyroidism Status: Acute Qualifiers: Hypothyroidism type: acquired Qualified Code(s): E03.9 - Hypothyroidism, unspecified Category: Medical Code(s): E03.9 - Hypothyroidism, unspecified (8) Obesity Status: Chronic Qualifiers: Obesity type: due to excess calories Obesity classification: adult class 1 (BMI 30 - 34.9) Body mass index: BMI 30.0-30.9 Category: Medical Code(s): E66.9 - Obesity, unspecified (9) Hypokalemia Status: Acute Category: Medical Code(s): E87.6 - Hypokalemia - Assessment and plan all Dx Assessment and Plan for a
[2020-10-27 10:32] LABS: Lymphocytes % 6 % (10-50); Monocytes % 1 % (2-9); Neutrophils % 93 % (42-76); Total Cells Counted 100
[2020-10-27 10:33] LABS: Burr Cells 2+; Platelet Estimate Normal; Poikilocytosis 2+
--- NOTE | 2020-10-27 15:40 | PC.NURSE ---
No acute changes noted this shift, pt remains intubated and lightly sedated, able to open eyes and nod yes or no, perrla, 7.0 ETT 19@lip, OG tube in place at 59, pulmocare infusing at goal rate, lung sounds diminished t/o, no changes to vent settings this shift, pt has been turned and provided oral care q2h, minimal secretions this shift, FC patent and draining clear yellow urine, no s/s of distress noted, vss, will continue to monitor for changes.
[2020-10-27 15:43] LABS: Calcium, Ionized 4.5 mg/dL (4.5-5.6)
[2020-10-28] VITALS (36 sets, daily range): BP systolic 101–144; BP diastolic 56–87; PULSE 60–114; RESP 18–30; TEMP 36.5–37.5; O2SAT 88–97; BMI 35.6
--- NOTE | 2020-10-28 05:00 | XR_ITS ---
PROCEDURE: XR CHEST PORTABLE CLINICAL HISTORY: Pt intubated Respiratory failure COMPARISON: CT CT ANGIO CHEST from 10/22/2020 CR XR CHEST PORTABLE from 10/25/2020 CR XR CHEST PORTABLE from 10/26/2020 CR XR CHEST PORTABLE from 10/27/2020 FINDINGS: 4:51 a.m. Endotracheal tube, and orogastric tube are in good position. Mild diffuse bilateral pneumonia once again noted which appears slightly improved but could be related to the different degree of inspiration. A nodular opacity overlies the left lower lobe at 15 mm. No acute bony findings. IMPRESSION: Slight improvement bilateral pneumonia with possible nodule in the left lower lobe. Tubes and lines remain in good position Dictated by: Connor Pena MD 10/28/2020 05:42 Connor Pena MD in [facility] 10/28/2020 05:42
--- NOTE | 2020-10-28 05:38 | PC.NURSE ---
No acute changes overnight. Pt has followed commands, answering yes/no questions, slight squeezing of hands and moving feet. GCS 10T. 7.0 ETT, 21 @ lip. Vent settings: AC, TV 440, RR 22, PEEP 12, FiO2 50%. Pt sats in the mid 90s. At start of shift, pt RASS was at -2/-3, propofol was titrated down to 30, Fentynl @ 100. RASS currently at -1, CPOT at 0. Pt tolerating tube feeds well, pulmocare at 46. Oral care q2h and prn, turned q2h. Allevyn in place over coccyx. bowel sounds hypoactive. grijalva draining clear, yellow urine. VSS, no s/s of distress, no concerns at this time.
[2020-10-28 05:51] LABS: Chloride 112 mmol/L (98-107); Potassium 4.3 mmoL/L (3.5-5.1); Sodium 138 mmol/L (136-145)
[2020-10-28 05:52] LABS: Basophils % 0.1 % (0.1-2.0); Eosinophils # 0.2 K/mm3 (0.0-0.4); Eosinophils % 1.2 % (0.1-12.0); Hematocrit 34.1 % (37.0-47.0); Lymphocytes # 0.7 K/mm3 (0.7-4.5); Mean Corpuscular HGB Conc 32.4 g/dL (31.8-35.4); Mean Corpuscular Hemoglobin 30.6 pg (27.0-31.2); Mean Corpuscular Volume 94.5 fl (81-99); Mean Platelet Volume 9.8 fl (7.4-10.4); Monocytes # 0.5 K/mm3 (0.1-1.0); Monocytes % 3.8 % (1.7-9.3); Neutrophils # 12.9 K/mm3 (1.8-7.8); Neutrophils % 89.9 % (37.0-80.0); Platelet Count 218 K/mm3 (142-424); Red Blood Count 3.61 M/mm3 (4.20-5.40); Red Cell Distribution Width 13.3 % (11.5-17.5); White Blood Count 14.3 K/mm3 (4.8-10.8)
[2020-10-28 05:53] LABS: Blood Urea Nitrogen 25 mg/dl (7-17); Creatinine Clearance Estimated 93 mL/min (50-200); Estimated Glomerular Filt Rate 84 ml/min (>60); GFR (African American) 101 ML/MIN (>60)
[2020-10-28 05:54] LABS: Alanine Aminotransferase 19 U/L (12-78); Albumin Level 2.6 g/dl (3.5-5.0); Albumin/Globulin Ratio 0.8 (1.1-1.8); Alkaline Phosphatase 83 U/L (38-126); Anion Gap 8.3 mEq/L (5-15); Aspartate Amino Transferase 31 U/L (14-36); Bilirubin,Total 0.5 mg/dl (0.2-1.3); Calcium 7.7 mg/dl (8.4-10.2); Carbon Dioxide 22 mmol/L (22.0-30.0); Globulin 3.1 g/dL (1.3-3.2); Glucose 90 mg/dl (74-100); Total Protein,Serum 5.7 g/dl (6.3-8.2)
[2020-10-28 05:58] LABS: MANUAL DIFFERENTIAL MANUAL DIFFERENTIAL (MANUAL DIFF)
[2020-10-28 06:37] LABS: Eosinophils % 1 % (0-3); Lymphocytes % 5 % (10-50); Monocytes % 3 % (2-9); Neutrophils % 91 % (42-76); Platelet Estimate Normal; RBC Morphology Normal; Total Cells Counted 100
--- NOTE | 2020-10-28 07:18 | HMH.ACPN2 ---
Internal Medicine - PN: Subj *Date: 10/28/20 *Time: 07:18 Interval history: Patient has been stable over the last 24 hours without acute events. Patient's blood pressure has risen. Patient is remained off Levophed. Patient has been in a negative fluid balance over the last 24 hours. Exam Vital signs and Labs for Last 24 Hours: Temp Pulse Resp BP Pulse Ox 99.5 F 81 22 138/83 97 10/28/20 06:51 10/28/20 06:51 10/28/20 06:51 10/28/20 06:51 10/28/20 06:51 Laboratory Results - last 24 hr 10/26/20 09:35: Ionized Calcium 4.5 10/27/20 04:10: Total Counted 100, Neutrophils % (Manual) 93 H, Lymphocytes % (Manual) 6 L, Monocytes % (Manual) 1 L, Platelet Estimate Normal, Poikilocytosis 2+, [place] Cells 2+ 10/28/20 05:21: WBC 14.3 H D, RBC 3.61 L, Hgb 11.0 L, Hct 34.1 L, MCV 94.5, MCH 30.6, MCHC 32.4, RDW 13.3, Plt Count 218, MPV 9.8, Neut % (Auto) 89.9 H, Lymph % (Auto) 5.0 L, [place] % (Auto) 3.8, Eos % (Auto) 1.2, Baso % (Auto) 0.1, Neut # (Auto) 12.9 H, Lymph # (Auto) 0.7, [place] # (Auto) 0.5, Eos # (Auto) 0.2, Baso # (Auto) 0.0, Total Counted 100, Neutrophils % (Manual) 91 H, Lymphocytes % (Manual) 5 L, Monocytes % (Manual) 3, Eosinophils % (Manual) 1, Platelet Estimate Normal, RBC Morphology Normal 10/28/20 05:21: Sodium 138, Potassium 4.3, Chloride 112 H, Carbon Dioxide 22, Anion Gap 8.3, BUN 25 H D, Creatinine 0.70, Estimated Creat Clear 93, Estimated GFR 84, Est GFR ( Amer) 101, Glucose 90, Calcium 7.7 L, Total Bilirubin 0.5, AST 31 D, ALT 19, Alkaline Phosphatase 83, Total Protein 5.7 L, Albumin 2.6 L, Globulin 3.1, Albumin/Globulin Ratio 0.8 L I & O for Last 24 hours: Intake & Output 10/25/20 10/26/20 10/27/20 10/28/20 11:59 11:59 11:59 11:59 Intake Total 1080 / 1080 4582.366 / 4582.366 4391.749 / 4391.749 2042.625 / 2042.625 Output Total 2150 / 2150 1275 / 1290 985 / 985 2960 / 2960 Balance -1070 / -1070 3307.366 / 3292.366 3406.749 / 3406.749 -917.375 / -917.375 Weight 222 lb 10.67 oz 225 lb 14.4 oz 232 lb 8 oz 235 lb 4 oz Microbiology Reports for the Last 24 Hours: Microbiology 10/24/20 13:50 Nose - Nasal MRSA Culture - Final Negative 10/25/20 16:50 Rectum CRE Surveillance Culture - Final Negative 10/21/20 22:30 Blood Blood Culture - Preliminary 10/25/20 10:20 Lung,Right Lower Lobe Gram Stain - Final 10/25/20 10:20 Lung,Right Lower Lobe Bronchial Aspirate Culture - Preliminary Narrative: Patient opens her eyes when her name is called. Lungs are clear anteriorly but distant posteriorly and in the bases. Heart has a regular rate and rhythm. Abdomen is soft and obese with hypoactive bowel sounds. Lower extremities have no edema Assessment and Plan (1) Acute hypoxemic respiratory failure Status: Acute Category: Medical Code(s): J96.01 - Acute respiratory failure with hypoxia (2) Viral pneumonia Status: Acute Category: Medical Code(s): J12.9 - Viral pneumonia, unspecified (3) COVID-19 virus infection Status: Acute Category: Medical Code(s): U07.1 - COVID-19 (4) Elevated troponin Status: Acute Category: Medical Code(s): R77.8 - Other specified abnormalities of plasma proteins (5) Hypothyroidism (acquired) Status: Acute Category: Medical Code(s): E03.9 - Hypothyroidism, unspecified (6) Hyperlipidemia Status: Acute Category: Medical Code(s): E78.5 - Hyperlipidemia, unspecified (7) Hypothyroidism Status: Acute Qualifiers: Hypothyroidism type: acquired Qualified Code(s): E03.9 - Hypothyroidism, unspecified Category: Medical Code(s): E03.9 - Hypothyroidism, unspecified (8) Obesity Status: Chronic Qualifiers: Obesity type: due to excess calories Obesity classification: adult class 1 (BMI 30 - 34.9) Body mass index: BMI 30.0-30.9 Category: Medical Code(s): E66.9 - Obesity, unspecified (9) Hypokalemia Status: Acute Category: Medical Code
[2020-10-28 07:23] LABS: ABG Base Excess -4.1 mmol/L (-2.4-2.3); ABG HCO3 20.6 mmhg (22.0-26.0); ABG Oxygen Saturation 93 % (90-100); ABG PCO2 33.1 mmhg (35.0-45.0); ABG PH 7.41 mmol/L (7.35-7.45); ABG PO2 62.5 mmhg (80-100); ABG TCO2 21.6 mmhg (23-27)
[2020-10-28 07:24] LABS: Allen's Test Acceptable; Oxygen 50 %; PEEP 12; Source Right Radial; Tidal Volume 440; Vent Rate 22
--- NOTE | 2020-10-28 10:47 | HMH.PULMPN ---
Internal Medicine - PN: Subj *Date: 10/28/20 *Time: 10:47 Interval history: No acute respiratory events overnight. Exam - Constitutional Constitutional:: Present: no acute distress, comfortable - HENMT Exam HENMT: Present: normocephalic, atraumatic - Eye Exam Eyes:: Present: eyelids normal - Neck Exam Neck:: Present: normal visual inspection, thyroid normal - Respiratory Exam Respiratory:: Present: crackles - Cardiovascular Exam Cardiac:: Present: S1, S2 - GI Exam GI:: Present: soft, no hepatosplenomegaly - Skin Exam Skin: Present: warm, no rash - Neurological Exam Neurological: Present: awake. Absent: alert, normal cognition - Extremities Exam Extremities: Present: no cyanosis, no clubbing, edema - Psychiatric Exam Psychiatric: Present: normal affect Assessment and Plan (1) Acute hypoxemic respiratory failure Status: Acute Category: Medical Code(s): J96.01 - Acute respiratory failure with hypoxia (2) Viral pneumonia Status: Acute Category: Medical Code(s): J12.9 - Viral pneumonia, unspecified (3) COVID-19 virus infection Status: Acute Category: Medical Code(s): U07.1 - COVID-19 (4) Elevated troponin Status: Acute Category: Medical Code(s): R77.8 - Other specified abnormalities of plasma proteins (5) Hypothyroidism (acquired) Status: Acute Category: Medical Code(s): E03.9 - Hypothyroidism, unspecified (6) Hyperlipidemia Status: Acute Category: Medical Code(s): E78.5 - Hyperlipidemia, unspecified (7) Hypothyroidism Status: Acute Qualifiers: Hypothyroidism type: acquired Qualified Code(s): E03.9 - Hypothyroidism, unspecified Category: Medical Code(s): E03.9 - Hypothyroidism, unspecified (8) Obesity Status: Chronic Qualifiers: Obesity type: due to excess calories Obesity classification: adult class 1 (BMI 30 - 34.9) Body mass index: BMI 30.0-30.9 Category: Medical Code(s): E66.9 - Obesity, unspecified (9) Hypokalemia Status: Acute Category: Medical Code(s): E87.6 - Hypokalemia - Assessment and plan all Dx Assessment and Plan for all problems:: #Acute hypoxic respiratory failure: #COVID-19 pneumonia: #Pneumonia: 65-year-old no prior respiratory complaints recent diagnosis of COVID-19 pneumonia with worsening symptoms presented to the hospital needing high flow nasal cannula to maintain oxygen saturations. CT on admission showed bilateral diffuse groundglass opacities and also showed questionable subacute to chronic pulmonary embolism. Creatinine stable on admission. Patient was initiated on vancomycin cefepime and azithromycin along with remdesivir and dexamethasone on admission. Patient respiratory status continued to be critical since admission needing 40 L 100% Vapotherm and has been gradually declining with frequent episodes of desaturations eventually this morning needing a combination of high flow nasal cannula and nonrebreather to maintain her saturations barely at 86%. ABG continued to show hypoxic respiratory failure and on examination patient today appeared to be in moderate respiratory distress worsened from yesterday. After discussions with the patient patient was made to intubate and mechanically ventilated the patient. Plan: Intubated and sedated with propofol and fentanyl, appears comfortable opening eyes to verbal stimuli.. Triglycerides 120. We will closely monitor. Continue Analgo-sedation with propofol and fentanyl with RASS goal of 0 to 1 and CPOT goal of less than or equal to 2. Patient respiratory status remained stable post intubation, vent settings improving, currently on FiO2 of 50% PEEP decreased to 10 today with O2 saturation goal of 88 to 90%. Chest x-ray slightly improved pulmonary infiltrates. ABG normal. Continue remdesivir and dexamethasone for COVID-19 pneumonia. DuoNebs every 6 hours scheduled Continue vancomycin, cefepime for 7 days . Completed 5-day course of azithromycin C
[2020-10-28 11:36] LABS: POC Glucose,Bedside 205 (70-110)
--- NOTE | 2020-10-28 15:18 | PC.NURSE ---
No acute changes noted this shift, patient remains intubated with 7.0 ETT, lightly sedated with propofol and fentanyl, able to nod yes or no appropriately when asked questions, perrla, HR reg, lung sounds diminished t/o, peep decreased this shift per dr ramírez order, patient is tolerating well, no other changes to vent settings, abd soft and nontender, hypoactive bowel sounds in all quads, GRV 40-120ml this shift, FC patent and draining at bedside, peripheral pulses intact, trace edema noted peripherally, pt has been turned q2h and provided oral care, small amount of thick [place]/yellow secretions noted, skin wdi, heel protectors in place, vss, will continue to monitor.
[2020-10-29] VITALS (33 sets, daily range): BP systolic 95–124; BP diastolic 49–74; PULSE 58–106; RESP 15–28; TEMP 36.6–37.7; O2SAT 90–95; BMI 36.2
--- NOTE | 2020-10-29 06:00 | XR_ITS ---
PROCEDURE: XR CHEST PORTABLE Referring Doctor: Yoav Castro Patient Age:65Y CLINICAL HISTORY: pt. intubated assess intubation Covid positive COMPARISON: CT CT ANGIO CHEST from 10/22/2020 CR XR CHEST PORTABLE from 10/26/2020 CR XR CHEST PORTABLE from 10/27/2020 CR XR CHEST PORTABLE from 10/28/2020 FINDINGS: Portable supine CXR ET tube satisfactory position just less than 5 cm above gage. Tip is at the level of the head of the clavicles. NG tube satisfactory position a passing into the stomach of extending at least to the distal body and of stomach, as was seen yesterday Less optimal inspiration today diaphragm only down to the anterior 3rd-4th rib on right. This does crowds markings at lung bases-but even with airspace disease density right lung base just above right hemidiaphragm likely reflect a combination of atelectasis and infiltrate. Prior infiltrate right infrahilar region medial right base seen yesterday in similar and stable. Very subtle low-density background infiltrate elsewhere throughout the right lung persist Left lung: Again see airspace disease with findings most evident left lung base.-this appears similar to yesterday with no significant . The area of nodularity left lung base question yesterday is not readily apparent today's image Heart and mediastinal structures otherwise appear stable. IMPRESSION: ET tube and NG tube satisfactory position Bilateral pneumonia . Progressive airspace disease at right lung base since yesterday . Less optimal inspiration today crowds markings at the lung bases, and may contribute to this appearance Dictated by: Timothy Dickerson MD 10/29/2020 08:12 Timothy Dickerson MD in [place] 10/29/2020 08:12
[2020-10-29 06:23] LABS: ABG HCO3 20.8 mmhg (22.0-26.0); ABG Oxygen Saturation 90 % (90-100); ABG PCO2 34.5 mmhg (35.0-45.0); ABG PO2 56.5 mmhg (80-100); ABG TCO2 21.9 mmhg (23-27)
[2020-10-29 06:31] LABS: Allen's Test Patient Unable; Oxygen 50 %; PEEP 10; Source Left Radial; Tidal Volume 440; Vent Rate 22
--- NOTE | 2020-10-29 06:37 | PC.NURSE ---
Vent settings are as follows: AC, R 22 TV 440, PEEP 10, FiO2 50. Propofol is currently infusing @ 50 mcg/kg/min. Propofol was titrated down to 30 mcg/kg/min this AM 0315. Pt became agitated after CXR was obtained by radiology. Pt started bucking the vent. Propofol was titrated up. RT assisted with pt. Pt continued bucking the vent. Propfol was titrated up again. Fentanyl gtt is infusing @ 100 mcg/hr. Oral care and suctioning provided. Pt turned and repositioned Q2 hrs. Heel protectors on and floated. Pulmocare feedings is currently infusing @ 46 ml/hr with 250 ml flushes. Residuals checked. Last was 30 ml. No other concerns. Will continue to monitor.
[2020-10-29 06:48] LABS: Basophils % 0.3 % (0.1-2.0); Eosinophils # 0.2 K/mm3 (0.0-0.4); Eosinophils % 1.9 % (0.1-12.0); Hematocrit 33.6 % (37.0-47.0); Hemoglobin 10.9 g/dL (12.2-16.2); Lymphocytes # 0.6 K/mm3 (0.7-4.5); Lymphocytes % 5.3 % (10-50); Mean Corpuscular HGB Conc 32.5 g/dL (31.8-35.4); Mean Corpuscular Hemoglobin 31.8 pg (27.0-31.2); Mean Corpuscular Volume 97.9 fl (81-99); Mean Platelet Volume 10.5 fl (7.4-10.4); Monocytes # 0.3 K/mm3 (0.1-1.0); Monocytes % 2.4 % (1.7-9.3); Neutrophils # 10.7 K/mm3 (1.8-7.8); Neutrophils % 90.1 % (37.0-80.0); Platelet Count 130 K/mm3 (142-424); Red Blood Count 3.43 M/mm3 (4.20-5.40); Red Cell Distribution Width 13.4 % (11.5-17.5); White Blood Count 11.8 K/mm3 (4.8-10.8)
[2020-10-29 06:59] LABS: Chloride 112 mmol/L (98-107); MANUAL DIFFERENTIAL MANUAL DIFFERENTIAL (MANUAL DIFF); Potassium 4.3 mmoL/L (3.5-5.1); Sodium 138 mmol/L (136-145)
[2020-10-29 07:01] LABS: Alanine Aminotransferase 22 U/L (12-78); Aspartate Amino Transferase 28 U/L (14-36); Blood Urea Nitrogen 33 mg/dl (7-17); Creatinine Clearance Estimated 95 mL/min (50-200); Estimated Glomerular Filt Rate 84 ml/min (>60); GFR (African American) 101 ML/MIN (>60)
[2020-10-29 07:02] LABS: Albumin Level 2.8 g/dl (3.5-5.0); Albumin/Globulin Ratio 0.9 (1.1-1.8); Alkaline Phosphatase 89 U/L (38-126); Anion Gap 5.3 mEq/L (5-15); Bilirubin,Total 0.5 mg/dl (0.2-1.3); Calcium 8.6 mg/dl (8.4-10.2); Carbon Dioxide 25 mmol/L (22.0-30.0); Globulin 3.1 g/dL (1.3-3.2); Glucose 93 mg/dl (74-100); Total Protein,Serum 5.9 g/dl (6.3-8.2)
[2020-10-29 07:18] LABS: Lymphocytes % 11 % (10-50); Monocytes % 2 % (2-9); Neutrophils % 87 % (42-76); Platelet Estimate Slight Decrease; RBC Morphology Normal; Total Cells Counted 100
--- NOTE | 2020-10-29 07:54 | HMH.ACPN2 ---
Internal Medicine - PN: Subj *Date: 10/29/20 *Time: 07:55 Interval history: Patient remains sedated, intubated. No acute events over the last 24 hours. Over the last 24 hours PEEP has been decreased from 12-10. Patient has tolerated ventilator adjustments. Currently she is heavily sedated after becoming agitated during her x-ray this morning Exam Vital signs and Labs for Last 24 Hours: Temp Pulse Resp BP Pulse Ox 99.8 F H 78 27 H 101/55 L 91 L 10/29/20 07:00 10/29/20 07:00 10/29/20 07:00 10/29/20 07:00 10/29/20 07:00 Laboratory Results - last 24 hr 10/28/20 11:29: POC Glucose 205 H 10/29/20 06:30: Specimen Source Left radial, O2 % 50, ABG pH 7.40, ABG pCO2 34.5 L, ABG pO2 56.5 L, ABG HCO3 20.8 L, ABG Total CO2 21.9 L, ABG O2 Saturation 90, ABG Base Excess -4.0 L, Connor Test Patient unable, Vent Rate 22, Tidal Volume 440, PEEP 10 10/29/20 06:30: WBC 11.8 H, RBC 3.43 L, Hgb 10.9 L, Hct 33.6 L, MCV 97.9, MCH 31.8 H, MCHC 32.5, RDW 13.4, Plt Count 130 L D, MPV 10.5 H, Neut % (Auto) 90.1 H, Lymph % (Auto) 5.3 L, [place] % (Auto) 2.4, Eos % (Auto) 1.9, Baso % (Auto) 0.3, Neut # (Auto) 10.7 H, Lymph # (Auto) 0.6 L, [place] # (Auto) 0.3, Eos # (Auto) 0.2, Baso # (Auto) 0.0, Total Counted 100, Neutrophils % (Manual) 87 H, Lymphocytes % (Manual) 11, Monocytes % (Manual) 2, Platelet Estimate Slight decrease, RBC Morphology Normal 10/29/20 06:30: Sodium 138, Potassium 4.3, Chloride 112 H, Carbon Dioxide 25, Anion Gap 5.3, BUN 33 H D, Creatinine 0.70, Estimated Creat Clear 95, Estimated GFR 84, Est GFR ( Amer) 101, Glucose 93, Calcium 8.6 D, Total Bilirubin 0.5, AST 28, ALT 22, Alkaline Phosphatase 89, Total Protein 5.9 L, Albumin 2.8 L, Globulin 3.1, Albumin/Globulin Ratio 0.9 L I & O for Last 24 hours: Intake & Output 10/26/20 10/27/20 10/28/20 10/29/20 11:59 11:59 11:59 11:59 Intake Total 4582.366 / 4582.366 4391.749 / 4391.749 2065.917 / 2065.917 2006.542 / 2006.542 Output Total 1275 / 1290 985 / 985 3090 / 3140 817 / 817 Balance 3307.366 / 3292.366 3406.749 / 3406.749 -1024.083 / -5468.197 2127.542 / 1190.542 Weight 225 lb 14.4 oz 232 lb 8 oz 235 lb 4 oz 239 lb 5 oz Microbiology Reports for the Last 24 Hours: Microbiology 10/25/20 10:20 Lung,Right Lower Lobe Gram Stain - Final 10/25/20 10:20 Lung,Right Lower Lobe Bronchial Aspirate Culture - Final Staphylococcus epidermidis 10/21/20 22:30 Blood - Final Not Reportable 10/21/20 22:30 Blood - Final Not Reportable 10/21/20 22:30 Blood - Final Not Reportable 10/21/20 22:30 Blood - Final Not Reportable 10/21/20 22:30 Blood - Final Not Reportable 10/21/20 22:30 Blood Blood Culture - Final - Constitutional Comments: Sedated - *Routine Respiratory Exam Present: decreased breath sounds - *Routine Cardiovascular Exam Present: RRR - *Routine Abdominal Exam Present: soft, normoactive bowel sounds. Absent: tenderness - *Routine Extremities Exam Absent: edema Assessment and Plan (1) Acute hypoxemic respiratory failure Status: Acute Category: Medical Code(s): J96.01 - Acute respiratory failure with hypoxia (2) Viral pneumonia Status: Acute Category: Medical Code(s): J12.9 - Viral pneumonia, unspecified (3) COVID-19 virus infection Status: Acute Category: Medical Code(s): U07.1 - COVID-19 (4) Elevated troponin Status: Acute Category: Medical Code(s): R77.8 - Other specified abnormalities of plasma proteins (5) Hypothyroidism (acquired) Status: Acute Category: Medical Code(s): E03.9 - Hypothyroidism, unspecified (6) Hyperlipidemia Status: Acute Category: Medical Code(s): E78.5 - Hyperlipidemia, unspecified (7) Hypothyroidism Status: Acute Qualifiers: Hypothyroidism type: acquired Qualified
--- NOTE | 2020-10-29 08:00 | PC.NURSE ---
gastric residual 0mL. Tubefeed rate continues @ 46mL/hr (goal rate).
--- NOTE | 2020-10-29 08:22 | HMH.PHACONS ---
- Pharmacy Consult Date: 10/29/20 Time: 08:22 Referring provider: DR. BOLTON Reason for Consult:: VANCOMYCIN DOSING Allergies and ADEs:: Allergies Allergy/AdvReac Type Severity Reaction Status Date / Time No Known Allergies Allergy Unverified 10/22/20 08:44 Home Medications:: Home Medications Medication Instructions Recorded Confirmed Type Levothyroxine Sodium 125 mcg PO DAILY 10/21/20 10/22/20 History [Levothyroxine 125mcg (0.125mg) Tab] Pravastatin Sodium 10 mg PO HS 10/21/20 10/22/20 History Height: 1.73 m Weight: 108.55 kg Laboratory Results:: Laboratory Results - last 24 hr 10/28/20 11:29: POC Glucose 205 H 10/29/20 06:30: Specimen Source Left radial, O2 % 50, ABG pH 7.40, ABG pCO2 34.5 L, ABG pO2 56.5 L, ABG HCO3 20.8 L, ABG Total CO2 21.9 L, ABG O2 Saturation 90, ABG Base Excess -4.0 L, Connor Test Patient unable, Vent Rate 22, Tidal Volume 440, PEEP 10 10/29/20 06:30: WBC 11.8 H, RBC 3.43 L, Hgb 10.9 L, Hct 33.6 L, MCV 97.9, MCH 31.8 H, MCHC 32.5, RDW 13.4, Plt Count 130 L D, MPV 10.5 H, Neut % (Auto) 90.1 H, Lymph % (Auto) 5.3 L, [place] % (Auto) 2.4, Eos % (Auto) 1.9, Baso % (Auto) 0.3, Neut # (Auto) 10.7 H, Lymph # (Auto) 0.6 L, [place] # (Auto) 0.3, Eos # (Auto) 0.2, Baso # (Auto) 0.0, Total Counted 100, Neutrophils % (Manual) 87 H, Lymphocytes % (Manual) 11, Monocytes % (Manual) 2, Platelet Estimate Slight decrease, RBC Morphology Normal 10/29/20 06:30: Sodium 138, Potassium 4.3, Chloride 112 H, Carbon Dioxide 25, Anion Gap 5.3, BUN 33 H D, Creatinine 0.70, Estimated Creat Clear 95, Estimated GFR 84, Est GFR ( Amer) 101, Glucose 93, Calcium 8.6 D, Total Bilirubin 0.5, AST 28, ALT 22, Alkaline Phosphatase 89, Total Protein 5.9 L, Albumin 2.8 L, Globulin 3.1, Albumin/Globulin Ratio 0.9 L Medical History: Reports:: Hyperlipidemia, Hypertension Denies:: Cancer, Diabetes Mellitus Type 1, Diabetes Mellitus Type 2, MRSA Assessment and Plan (1) Acute hypoxemic respiratory failure Status: Acute Category: Medical Code(s): J96.01 - Acute respiratory failure with hypoxia (2) Viral pneumonia Status: Acute Category: Medical Code(s): J12.9 - Viral pneumonia, unspecified (3) COVID-19 virus infection Status: Acute Category: Medical Code(s): U07.1 - COVID-19 (4) Elevated troponin Status: Acute Category: Medical Code(s): R77.8 - Other specified abnormalities of plasma proteins (5) Hypothyroidism (acquired) Status: Acute Category: Medical Code(s): E03.9 - Hypothyroidism, unspecified (6) Hyperlipidemia Status: Acute Category: Medical Code(s): E78.5 - Hyperlipidemia, unspecified (7) Hypothyroidism Status: Acute Qualifiers: Hypothyroidism type: acquired Qualified Code(s): E03.9 - Hypothyroidism, unspecified Category: Medical Code(s): E03.9 - Hypothyroidism, unspecified (8) Obesity Status: Chronic Qualifiers: Obesity type: due to excess calories Obesity classification: adult class 1 (BMI 30 - 34.9) Body mass index: BMI 30.0-30.9 Category: Medical Code(s): E66.9 - Obesity, unspecified (9) Hypokalemia Status: Acute Category: Medical Code(s): E87.6 - Hypokalemia - Assessment and plan all Dx Assessment and Plan for all problems:: BASED ON PATIENT FACTORS, RECOMMEND INITIATING VANCOMYCIN AT 1,500MG IV EVERY 12 HOURS. THIS WAS WHAT THE PATIENT WAS ON A FEW DAYS AGO WITH FAVORABLE TROUGH LEVELS. PHARMACY WILL CONTINUE TO MONITOR AND WILL ADJUST DOSE APPROPRIATE. -ADAN DAVIDSON PHARMD
--- NOTE | 2020-10-29 12:00 | PC.NURSE ---
gastric residual 0mL. Tubefeed rate continues @ 46mL/hr (goal rate).
--- NOTE | 2020-10-29 16:00 | PC.NURSE ---
gastric residual 310mL. Tubefeed is now on HOLD.
[2020-10-30] VITALS (32 sets, daily range): BP systolic 99–134; BP diastolic 48–77; PULSE 59–108; RESP 22–32; TEMP 36.4–37.5; O2SAT 90–987; BMI 36.8
--- NOTE | 2020-10-30 00:13 | PC.NURSE ---
She continues in contact and airborne precautions. Vent settings are as follows: AC mode, TV 440, PEEP 10, Rate 22, 50% FiO2. ETT moved per respiratory. Tube feedings were off upon shift change due to high residual at 1600 per report. Previous nurse reported the residual at that time was wasted; therefore, at 1999 the residual was 0 and the Pulmocare was restarted at 46mL/hr. Residual at 2400 was 50mL. Three new IVs were placed and previous 3 IVs were removed. She received a bed bath and linen change. Preventative DSG on coccyx was removed to assess skin underneath and was found to still be intact. New DSG placed on coccyx. Numerous areas of small purple bruises on abdomen from lovenox injection sites. No edema noted. Gag reflex intact. Have started to wean the sedation. During initial assessment she was sedated to a RASS -4 and did not follow commands. She is currently a RASS -2 with a CPOT score of 0. F/C is patent and draining bright yellow, clear urine. No BM this shift. Hypoactive bowel sounds. Abdomen is soft and no facial grimacing noted with palpation. Lung sounds diminished. HOB elevated 30 degrees with ambu bag present at bedside.
[2020-10-30 04:42] LABS: Basophils % 0.1 % (0.1-2.0); Eosinophils # 0.2 K/mm3 (0.0-0.4); Eosinophils % 1.4 % (0.1-12.0); Hematocrit 31.4 % (37.0-47.0); Hemoglobin 10.3 g/dL (12.2-16.2); Lymphocytes # 0.6 K/mm3 (0.7-4.5); Mean Corpuscular HGB Conc 32.8 g/dL (31.8-35.4); Mean Corpuscular Hemoglobin 31.3 pg (27.0-31.2); Mean Corpuscular Volume 95.2 fl (81-99); Mean Platelet Volume 9.2 fl (7.4-10.4); Monocytes # 0.2 K/mm3 (0.1-1.0); Monocytes % 2.1 % (1.7-9.3); Neutrophils # 9.5 K/mm3 (1.8-7.8); Neutrophils % 90.4 % (37.0-80.0); Platelet Count 138 K/mm3 (142-424); Red Cell Distribution Width 13.4 % (11.5-17.5); White Blood Count 10.6 K/mm3 (4.8-10.8)
[2020-10-30 04:44] LABS: MANUAL DIFFERENTIAL MANUAL DIFFERENTIAL (MANUAL DIFF)
[2020-10-30 05:00] LABS: Lymphocytes % 6 % (10-50); Monocytes % 1 % (2-9); Neutrophils % 84 % (42-76); Total Cells Counted 100
[2020-10-30 05:01] LABS: Alanine Aminotransferase 23 U/L (12-78); Albumin Level 2.7 g/dl (3.5-5.0); Albumin/Globulin Ratio 0.9 (1.1-1.8); Alkaline Phosphatase 83 U/L (38-126); Anion Gap 5.3 mEq/L (5-15); Aspartate Amino Transferase 25 U/L (14-36); Bilirubin,Total 0.4 mg/dl (0.2-1.3); Blood Urea Nitrogen 27 mg/dl (7-17); Calcium 8.3 mg/dl (8.4-10.2); Carbon Dioxide 26 mmol/L (22.0-30.0); Chloride 111 mmol/L (98-107); Creatinine Clearance Estimated 95 mL/min (50-200); Estimated Glomerular Filt Rate 84 ml/min (>60); GFR (African American) 101 ML/MIN (>60); Globulin 3.1 g/dL (1.3-3.2); Glucose 91 mg/dl (74-100); Platelet Estimate Normal; Potassium 4.3 mmoL/L (3.5-5.1); RBC Morphology Normal; Rouleaux 1+; Sodium 138 mmol/L (136-145); Total Protein,Serum 5.8 g/dl (6.3-8.2)
--- NOTE | 2020-10-30 05:45 | PC.NURSE ---
Pt turned at 0400 and sats decreased to 84%. Left posterior lung sounds with wheezing. Pt turned back to supine position. Respirations increased to 28. Sedation increased to initial settings. Respiratory paged and she received a breathing tx. Sats increased to 94%, respirations 24.
--- NOTE | 2020-10-30 06:00 | XR_ITS ---
PROCEDURE: XR CHEST PORTABLE CLINICAL HISTORY: pt. intubated COMPARISON: CT CT ANGIO CHEST from 10/22/2020 CR XR CHEST PORTABLE from 10/27/2020 CR XR CHEST PORTABLE from 10/28/2020 CR XR CHEST PORTABLE from 10/29/2020 FINDINGS: This is a better inspiratory effort than yesterday's study. Diffuse patchy pneumonic infiltrates remain in the right lung and at the left base. There is relative sparing of the left upper lobe. The endotracheal tube remains in satisfactory position well above the gage. The NG tube is seen the distal portion of the stomach. IMPRESSION: Considering the better inspiration the bilateral ill-defined pneumonic infiltrates are basically stable with no significant progression or improvement from the most recent study Dictated by: Dr. Valdez Arellano MD 10/30/2020 09:36 Dr. Valdez Arellano MD in [facility] 10/30/2020 09:36
[2020-10-30 07:11] LABS: ABG Base Excess -4.7 mmol/L (-2.4-2.3); ABG HCO3 20.3 mmhg (22.0-26.0); ABG Oxygen Saturation 89 % (90-100); ABG PCO2 34.7 mmhg (35.0-45.0); ABG PH 7.39 mmol/L (7.35-7.45); ABG PO2 55.3 mmhg (80-100); ABG TCO2 21.4 mmhg (23-27)
[2020-10-30 07:16] LABS: Oxygen 50 %
[2020-10-30 07:17] LABS: Allen's Test ACCEPTABLE; PEEP 10; Source R RADIAL; Tidal Volume 440; Vent Rate 22
--- NOTE | 2020-10-30 07:56 | HMH.ACPN2 ---
Internal Medicine - PN: Subj *Date: 10/30/20 *Time: 07:56 Interval history: Over the last 24 hours patient is remained stable. This morning when being turned she had a desaturation which was relieved with readjustment and temporarily increasing patient's sedation. Prior to my arrival this morning patient had been following commands before sedation was adjusted. Exam Vital signs and Labs for Last 24 Hours: Temp Pulse Resp BP Pulse Ox 98.7 F 90 24 113/62 91 L 10/30/20 07:00 10/30/20 07:00 10/30/20 07:00 10/30/20 07:00 10/30/20 07:00 Laboratory Results - last 24 hr 10/30/20 04:25: WBC 10.6, RBC 3.30 L, Hgb 10.3 L, Hct 31.4 L, MCV 95.2, MCH 31.3 H, MCHC 32.8, RDW 13.4, Plt Count 138 L, MPV 9.2, Neut % (Auto) 90.4 H, Lymph % (Auto) 6.0 L, [place] % (Auto) 2.1, Eos % (Auto) 1.4, Baso % (Auto) 0.1, Neut # (Auto) 9.5 H, Lymph # (Auto) 0.6 L, [place] # (Auto) 0.2, Eos # (Auto) 0.2, Baso # (Auto) 0.0, Total Counted 100, Neutrophils % (Manual) 84 H, Band Neutrophils % 9.0 H, Lymphocytes % (Manual) 6 L, Monocytes % (Manual) 1 L, Platelet Estimate Normal, RBC Morphology Normal, [place] 1+ 10/30/20 04:25: Sodium 138, Potassium 4.3, Chloride 111 H, Carbon Dioxide 26, Anion Gap 5.3, BUN 27 H, Creatinine 0.70, Estimated Creat Clear 95, Estimated GFR 84, Est GFR ( Amer) 101, Glucose 91, Calcium 8.3 L, Total Bilirubin 0.4, AST 25, ALT 23, Alkaline Phosphatase 83, Total Protein 5.8 L, Albumin 2.7 L, Globulin 3.1, Albumin/Globulin Ratio 0.9 L 10/30/20 07:00: Specimen Source R radial, O2 % 50, ABG pH 7.39, ABG pCO2 34.7 L, ABG pO2 55.3 L, ABG HCO3 20.3 L, ABG Total CO2 21.4 L, ABG O2 Saturation 89 L, ABG Base Excess -4.7 L, Connor Test Acceptable, Vent Rate 22, Tidal Volume 440, PEEP 10 I & O for Last 24 hours: Intake & Output 10/27/20 10/28/20 10/29/20 10/30/20 11:59 11:59 11:59 11:59 Intake Total 4391.749 / 4391.749 2065.917 / 2065.917 2006.542 / 2006.542 3806.833 / 3806.833 Output Total 985 / 985 3090 / 3140 1017 / 1047 3400 / 3400 Balance 3406.749 / 3406.749 -1024.083 / -1074.083 990.542 / 960.542 406.833 / 406.833 Weight 232 lb 8 oz 235 lb 4 oz 239 lb 5 oz 243 lb 2 oz Microbiology Reports for the Last 24 Hours: Microbiology 10/25/20 10:20 Lung,Right Lower Lobe Gram Stain - Final 10/25/20 10:20 Lung,Right Lower Lobe Bronchial Aspirate Culture - Final Staphylococcus epidermidis Narrative: At present patient is using abdominal musculature to help forced expiration. She remains intubated. Has mild increase in respiratory rate. Lungs remain distant at the bases. No focal rales are heard. Heart has regular rate and rhythm. Abdomen is obese and soft. Patient has trace edema of the feet Assessment and Plan (1) Acute hypoxemic respiratory failure Status: Acute Category: Medical Code(s): J96.01 - Acute respiratory failure with hypoxia (2) Viral pneumonia Status: Acute Category: Medical Code(s): J12.9 - Viral pneumonia, unspecified (3) COVID-19 virus infection Status: Acute Category: Medical Code(s): U07.1 - COVID-19 (4) Elevated troponin Status: Acute Category: Medical Code(s): R77.8 - Other specified abnormalities of plasma proteins (5) Hypothyroidism (acquired) Status: Acute Category: Medical Code(s): E03.9 - Hypothyroidism, unspecified (6) Hyperlipidemia Status: Acute Category: Medical Code(s): E78.5 - Hyperlipidemia, unspecified (7) Hypothyroidism Status: Acute Qualifiers: Hypothyroidism type: acquired Qualified Code(s): E03.9 - Hypothyroidism, unspecified Category: Medical Code(s): E03.9 - Hypothyroidism, unspecified (8) Obesity Status: Chronic Qualifiers: Obesity type: due to excess calories Obesity classification: adult class 1 (BMI 30 - 34.9) Body mass index: BMI 30.0-30.9 Category: Medical Code(s): E66.9 - Obesity, unspecified (9) Hypokalemia Status: Acute Category: Medical Code(s
--- NOTE | 2020-10-30 08:00 | PC.NURSE ---
gastric residual 120mL. Tubefeed rate continues @ goal rate of 46mL/hr.
--- NOTE | 2020-10-30 09:00 | PC.NURSE ---
Pt repositioned to left side, (she is getting turned Q2hrs). She desats to mid 80s when she is on her left side.
--- NOTE | 2020-10-30 10:03 | DIET.NUTRFU ---
Addendum entered by Shy Chavis 11/02/20 14:58: Continued with fair-good toleration tube feed initiation, stopped and restarted again for GRV of 200. K and Na normalized. Weight stable. Has not had a BM recorded. Pt extubated this am, continuing to monitor further care plans to provide appropriate MNT. Addendum entered by Shy Chavis 10/31/20 11:57: Fair toleration tube feeds. Stopped and restarted dt high GRV (175) and pt vomiting TF contents. Currently at 30ml/h well tolerated. No BM reported yet. Hyperkalemia and hyponatremia noted today as well. Recommend continuing to slowly advance as tolerated, no changes to nutritional care plan at this time. Continuing to monitor tolerance, fluids, meds to alter as indicated. Original Note: Tube feeds stopped last night at 1600 dt high GRV, restarted this morning without issue. Pt with signs fluid overload being diuresed today. Order changed to slightly decrease water flushes to 200ml q 4h. Total fluids with formula and [id number]. Will monitor and alter as needed.
--- NOTE | 2020-10-30 11:00 | PC.NURSE ---
O2 sats 95% when positioned on right side
--- NOTE | 2020-10-30 12:00 | PC.NURSE ---
gastric residual 60mL. Tubefeed rate continues @ goal of 46mL/hr.
--- NOTE | 2020-10-30 13:12 | PC.NURSE ---
THIS RN NOTICED PATIENT VOMITING TUBE FEED, PATIENT SUCTION PROVIDED BY STEFAN RODRÍGUEZ. TUBE FEED TURNED OFF.
--- NOTE | 2020-10-30 16:00 | PC.NURSE ---
gastric residual 50mL. Tubefeed restarted @ 20mL/hr.
--- NOTE | 2020-10-30 23:21 | PC.NURSE ---
2148- Donnie. Yuriy, pharmacy contacted this rn regarding vanc trough. Pharmacy advised to hold vanc tonight and will reassess dose in am. 2315- Titrated propofol to 45 mcg/kg/min
[2020-10-31] VITALS (31 sets, daily range): BP systolic 98–135; BP diastolic 53–81; PULSE 57–103; RESP 18–28; TEMP 36.4–37.2; O2SAT 85–95; BMI 39.2
--- NOTE | 2020-10-31 03:44 | PC.NURSE ---
0218- propofol titrated to 40 mcg/kg/min 0335- propofol titrated to 35 mcg/kg/min Pt. has been tolerating ventilator with o2 sat 92-94%. No n/v/d this shift.
--- NOTE | 2020-10-31 04:49 | PC.NURSE ---
Addendum entered by Poonam Patterson RN 10/31/20 04:54: Increased feeding rate to 30 ml/hr at this time. Original Note: 0435- propofol titrated to 30 mcg/kg/min
--- NOTE | 2020-10-31 06:00 | XR_ITS ---
PROCEDURE: XR CHEST PORTABLE CLINICAL HISTORY: pt. intubated COVID COMPARISON: CT CT ANGIO CHEST from 10/22/2020 CR XR CHEST PORTABLE from 10/28/2020 CR XR CHEST PORTABLE from 10/29/2020 CR XR CHEST PORTABLE from 10/30/2020 FINDINGS: Patient is rotated on the exam. Endotracheal tube and NG tube remain in place. There are extensive bilateral patchy infiltrates. No change compared with the prior x-ray. . IMPRESSION: Extensive bilateral infiltrates unchanged. Dictated by: Whitney Lamb 10/31/2020 16:26 Whitney Lamb in [facility] 10/31/2020 16:26
[2020-10-31 06:29] LABS: Chloride 108 mmol/L (98-107); Potassium 5.4 mmoL/L (3.5-5.1); Sodium 135 mmol/L (136-145)
[2020-10-31 06:32] LABS: Alanine Aminotransferase 23 U/L (12-78); Albumin Level 2.8 g/dl (3.5-5.0); Albumin/Globulin Ratio 0.8 (1.1-1.8); Alkaline Phosphatase 44 U/L (38-126); Anion Gap 6.4 mEq/L (5-15); Aspartate Amino Transferase 44 U/L (14-36); Bilirubin,Total 1.1 mg/dl (0.2-1.3); Blood Urea Nitrogen 32 mg/dl (7-17); Calcium 8.2 mg/dl (8.4-10.2); Carbon Dioxide 26 mmol/L (22.0-30.0); Creatinine Clearance Estimated 57 mL/min (50-200); Estimated Glomerular Filt Rate 84 ml/min (>60); GFR (African American) 101 ML/MIN (>60); Globulin 3.7 g/dL (1.3-3.2); Glucose 85 mg/dl (74-100); Total Protein,Serum 6.5 g/dl (6.3-8.2)
[2020-10-31 06:36] LABS: Basophils % 0.2 % (0.1-2.0); Eosinophils # 0.2 K/mm3 (0.0-0.4); Eosinophils % 2.2 % (0.1-12.0); Hematocrit 31.1 % (37.0-47.0); Hemoglobin 10.1 g/dL (12.2-16.2); Lymphocytes # 0.6 K/mm3 (0.7-4.5); Mean Corpuscular HGB Conc 32.5 g/dL (31.8-35.4); Mean Corpuscular Hemoglobin 30.9 pg (27.0-31.2); Mean Corpuscular Volume 94.9 fl (81-99); Mean Platelet Volume 9.8 fl (7.4-10.4); Monocytes # 0.2 K/mm3 (0.1-1.0); Monocytes % 3.1 % (1.7-9.3); Neutrophils % 85.6 % (37.0-80.0); Platelet Count 136 K/mm3 (142-424); Red Blood Count 3.28 M/mm3 (4.20-5.40); Red Cell Distribution Width 13.4 % (11.5-17.5); White Blood Count 7.1 K/mm3 (4.8-10.8)
[2020-10-31 06:49] LABS: MANUAL DIFFERENTIAL MANUAL DIFFERENTIAL (MANUAL DIFF)
--- NOTE | 2020-10-31 06:55 | HMH.ACPN2 ---
Internal Medicine - PN: Subj *Date: 10/31/20 *Time: 06:55 Interval history: Patient remained stable on the ventilator. No acute changes over the last 24 hours. Exam Vital signs and Labs for Last 24 Hours: Temp Pulse Resp BP Pulse Ox 98.7 F 76 24 107/61 L 93 L 10/31/20 06:00 10/31/20 06:00 10/31/20 06:21 10/31/20 06:00 10/31/20 06:21 Laboratory Results - last 24 hr 10/30/20 07:00: Specimen Source R radial, O2 % 50, ABG pH 7.39, ABG pCO2 34.7 L, ABG pO2 55.3 L, ABG HCO3 20.3 L, ABG Total CO2 21.4 L, ABG O2 Saturation 89 L, ABG Base Excess -4.7 L, Connor Test Acceptable, Vent Rate 22, Tidal Volume 440, PEEP 10 10/30/20 20:40: Vancomycin Trough 21.0 H 10/31/20 05:57: WBC 7.1 D, RBC 3.28 L, Hgb 10.1 L, Hct 31.1 L, MCV 94.9, MCH 30.9, MCHC 32.5, RDW 13.4, Plt Count 136 L, MPV 9.8, Neut % (Auto) 85.6 H, Lymph % (Auto) 9.0 L, [place] % (Auto) 3.1, Eos % (Auto) 2.2, Baso % (Auto) 0.2, Neut # (Auto) 6.0, Lymph # (Auto) 0.6 L, [place] # (Auto) 0.2, Eos # (Auto) 0.2, Baso # (Auto) 0.0 10/31/20 05:57: Sodium 135 L, Potassium 5.4 H D, Chloride 108 H, Carbon Dioxide 26, Anion Gap 6.4, BUN 32 H, Creatinine 0.70, Estimated Creat Clear 57, Estimated GFR 84, Est GFR ( Amer) 101, Glucose 85, Calcium 8.2 L, Total Bilirubin 1.1, AST 44 H D, ALT 23, Alkaline Phosphatase 44, Total Protein 6.5, Albumin 2.8 L, Globulin 3.7 H, Albumin/Globulin Ratio 0.8 L I & O for Last 24 hours: Intake & Output 10/28/20 10/29/20 10/30/20 10/31/20 11:59 11:59 11:59 11:59 Intake Total 2065.917 / 2065.917 2006.542 / 2006.542 3841.125 / 3841.125 2712.167 / 2712.167 Output Total 3090 / 3140 1017 / 1047 4587 / 4752 1855 / 1855 Balance -1024.083 / -1074.083 990.542 / 960.542 -745.875 / -910.875 857.167 / 857.167 Weight 235 lb 4 oz 239 lb 5 oz 243 lb 2 oz 243 lb 3.996 oz Narrative: Patient remains sedated and intubated. Lungs are clear anteriorly and diminished posteriorly. Heart has a regular rate and rhythm. Abdomen is soft. Bowel sounds are hypoactive. Lower extremities have trace edema of the feet Assessment and Plan (1) Acute hypoxemic respiratory failure Status: Acute Category: Medical Code(s): J96.01 - Acute respiratory failure with hypoxia (2) Viral pneumonia Status: Acute Category: Medical Code(s): J12.9 - Viral pneumonia, unspecified (3) COVID-19 virus infection Status: Acute Category: Medical Code(s): U07.1 - COVID-19 (4) Elevated troponin Status: Acute Category: Medical Code(s): R77.8 - Other specified abnormalities of plasma proteins (5) Hypothyroidism (acquired) Status: Acute Category: Medical Code(s): E03.9 - Hypothyroidism, unspecified (6) Hyperlipidemia Status: Acute Category: Medical Code(s): E78.5 - Hyperlipidemia, unspecified (7) Hypothyroidism Status: Acute Qualifiers: Hypothyroidism type: acquired Qualified Code(s): E03.9 - Hypothyroidism, unspecified Category: Medical Code(s): E03.9 - Hypothyroidism, unspecified (8) Obesity Status: Chronic Qualifiers: Obesity type: due to excess calories Obesity classification: adult class 1 (BMI 30 - 34.9) Body mass index: BMI 30.0-30.9 Category: Medical Code(s): E66.9 - Obesity, unspecified (9) Hypokalemia Status: Acute Category: Medical Code(s): E87.6 - Hypokalemia - Assessment and plan all Dx Assessment and Plan for all problems:: 1. Continue remdesivir and dexamethasone day 10 2. Continue cefepime and vancomycin 3. Add Senokot-S to bowel regimen 4. Vent management per pulmonary service
[2020-10-31 07:20] LABS: ABG Base Excess -3.9 mmol/L (-2.4-2.3); ABG HCO3 20.7 mmhg (22.0-26.0); ABG Oxygen Saturation 93 % (90-100); ABG PCO2 33.1 mmhg (35.0-45.0); ABG PH 7.41 mmol/L (7.35-7.45); ABG TCO2 21.7 mmhg (23-27)
[2020-10-31 07:21] LABS: Allen's Test Patient Unable; Oxygen 55 %; PEEP 10; Source Left Radial; Tidal Volume 440; Vent Rate 22
[2020-10-31 08:15] LABS: Lymphocytes % 5 % (10-50); Monocytes % 1 % (2-9); Neutrophils % 94 % (42-76); Platelet Estimate Normal; RBC Morphology Normal; Total Cells Counted 100
--- NOTE | 2020-10-31 08:30 | HMH.PHACONS ---
- Pharmacy Consult Date: 10/31/20 Time: 08:30 Referring provider: DR. BOLTON Reason for Consult:: VANCOMYCIN TROUGH LEVEL AND DOSE CHANGE Allergies and ADEs:: Allergies Allergy/AdvReac Type Severity Reaction Status Date / Time No Known Allergies Allergy Unverified 10/22/20 08:44 Home Medications:: Home Medications Medication Instructions Recorded Confirmed Type Levothyroxine Sodium 125 mcg PO DAILY 10/21/20 10/22/20 History [Levothyroxine 125mcg (0.125mg) Tab] Pravastatin Sodium 10 mg PO HS 10/21/20 10/22/20 History Height: 1.68 m Weight: 110.336 kg Laboratory Results:: Laboratory Results - last 24 hr 10/30/20 20:40: Vancomycin Trough 21.0 H 10/31/20 05:57: WBC 7.1 D, RBC 3.28 L, Hgb 10.1 L, Hct 31.1 L, MCV 94.9, MCH 30.9, MCHC 32.5, RDW 13.4, Plt Count 136 L, MPV 9.8, Neut % (Auto) 85.6 H, Lymph % (Auto) 9.0 L, [place] % (Auto) 3.1, Eos % (Auto) 2.2, Baso % (Auto) 0.2, Neut # (Auto) 6.0, Lymph # (Auto) 0.6 L, [place] # (Auto) 0.2, Eos # (Auto) 0.2, Baso # (Auto) 0.0, Total Counted 100, Neutrophils % (Manual) 94 H, Lymphocytes % (Manual) 5 L, Monocytes % (Manual) 1 L, Platelet Estimate Normal, RBC Morphology Normal 10/31/20 05:57: Sodium 135 L, Potassium 5.4 H D, Chloride 108 H, Carbon Dioxide 26, Anion Gap 6.4, BUN 32 H, Creatinine 0.70, Estimated Creat Clear 57, Estimated GFR 84, Est GFR ( Amer) 101, Glucose 85, Calcium 8.2 L, Total Bilirubin 1.1, AST 44 H D, ALT 23, Alkaline Phosphatase 44, Total Protein 6.5, Albumin 2.8 L, Globulin 3.7 H, Albumin/Globulin Ratio 0.8 L 10/31/20 07:00: Specimen Source Left radial, O2 % 55, ABG pH 7.41, ABG pCO2 33.1 L, ABG pO2 64.0 L, ABG HCO3 20.7 L, ABG Total CO2 21.7 L, ABG O2 Saturation 93, ABG Base Excess -3.9 L, Connor Test Patient unable, Vent Rate 22, Tidal Volume 440, PEEP 10 Medical History: Reports:: Hyperlipidemia, Hypertension Denies:: Cancer, Diabetes Mellitus Type 1, Diabetes Mellitus Type 2, MRSA Assessment and Plan (1) Acute hypoxemic respiratory failure Status: Acute Category: Medical Code(s): J96.01 - Acute respiratory failure with hypoxia (2) Viral pneumonia Status: Acute Category: Medical Code(s): J12.9 - Viral pneumonia, unspecified (3) COVID-19 virus infection Status: Acute Category: Medical Code(s): U07.1 - COVID-19 (4) Elevated troponin Status: Acute Category: Medical Code(s): R77.8 - Other specified abnormalities of plasma proteins (5) Hypothyroidism (acquired) Status: Acute Category: Medical Code(s): E03.9 - Hypothyroidism, unspecified (6) Hyperlipidemia Status: Acute Category: Medical Code(s): E78.5 - Hyperlipidemia, unspecified (7) Hypothyroidism Status: Acute Qualifiers: Hypothyroidism type: acquired Qualified Code(s): E03.9 - Hypothyroidism, unspecified Category: Medical Code(s): E03.9 - Hypothyroidism, unspecified (8) Obesity Status: Chronic Qualifiers: Obesity type: due to excess calories Obesity classification: adult class 1 (BMI 30 - 34.9) Body mass index: BMI 30.0-30.9 Category: Medical Code(s): E66.9 - Obesity, unspecified (9) Hypokalemia Status: Acute Category: Medical Code(s): E87.6 - Hypokalemia - Assessment and plan all Dx Assessment and Plan for all problems:: PATIENT'S VANCOMYCIN TROUGH LEVEL WAS 21.0 MCG/ML OVERNIGHT. PATIENT'S OVERNIGHT DOSE WAS HELD AND DOSE ADJUSTED THIS AM TO VANCOMYCIN 1250 MG Q12H. PHARMACY WILL FOLLOW DAILY AND ADJUST APPROPRIATE.
--- NOTE | 2020-10-31 10:23 | HMH.PULMPN ---
Internal Medicine - PN: Subj *Date: 10/31/20 *Time: 10:23 Interval history: No acute respiratory events overnight. Exam - Constitutional Constitutional:: Present: no acute distress, comfortable - HENMT Exam HENMT: Present: normocephalic, atraumatic - Eye Exam Eyes:: Present: eyelids normal - Neck Exam Neck:: Present: thyroid normal - Respiratory Exam Respiratory:: Present: no respiratory distress, crackles - Cardiovascular Exam Cardiac:: Present: S1, S2 - GI Exam GI:: Present: soft, no hepatosplenomegaly - Skin Exam Skin: Present: warm, no rash - Extremities Exam Extremities: Present: no cyanosis, no clubbing, edema Assessment and Plan (1) Acute hypoxemic respiratory failure Status: Acute Category: Medical Code(s): J96.01 - Acute respiratory failure with hypoxia (2) Viral pneumonia Status: Acute Category: Medical Code(s): J12.9 - Viral pneumonia, unspecified (3) COVID-19 virus infection Status: Acute Category: Medical Code(s): U07.1 - COVID-19 (4) Elevated troponin Status: Acute Category: Medical Code(s): R77.8 - Other specified abnormalities of plasma proteins (5) Hypothyroidism (acquired) Status: Acute Category: Medical Code(s): E03.9 - Hypothyroidism, unspecified (6) Hyperlipidemia Status: Acute Category: Medical Code(s): E78.5 - Hyperlipidemia, unspecified (7) Hypothyroidism Status: Acute Qualifiers: Hypothyroidism type: acquired Qualified Code(s): E03.9 - Hypothyroidism, unspecified Category: Medical Code(s): E03.9 - Hypothyroidism, unspecified (8) Obesity Status: Chronic Qualifiers: Obesity type: due to excess calories Obesity classification: adult class 1 (BMI 30 - 34.9) Body mass index: BMI 30.0-30.9 Category: Medical Code(s): E66.9 - Obesity, unspecified (9) Hypokalemia Status: Acute Category: Medical Code(s): E87.6 - Hypokalemia - Assessment and plan all Dx Assessment and Plan for all problems:: #Acute hypoxic respiratory failure: #COVID-19 pneumonia: #Pneumonia: 65-year-old no prior respiratory complaints recent diagnosis of COVID-19 pneumonia with worsening symptoms presented to the hospital needing high flow nasal cannula to maintain oxygen saturations. CT on admission showed bilateral diffuse groundglass opacities and also showed questionable subacute to chronic pulmonary embolism. Creatinine stable on admission. Patient was initiated on vancomycin cefepime and azithromycin along with remdesivir and dexamethasone on admission. Patient respiratory status continued to be critical since admission needing 40 L 100% Vapotherm and has been gradually declining with frequent episodes of desaturations eventually this morning needing a combination of high flow nasal cannula and nonrebreather to maintain her saturations barely at 86%. ABG continued to show hypoxic respiratory failure and on examination patient today appeared to be in moderate respiratory distress worsened from yesterday. After discussions with the patient patient was made to intubate and mechanically ventilated the patient. Plan: Intubated and sedated with propofol and fentanyl, appears comfortable opening eyes to verbal stimuli.. Triglycerides 120, follow with repeat labs. We will closely monitor. Continue Analgo-sedation with propofol and fentanyl with RASS goal of 0 to 1 and CPOT goal of less than or equal to 2. Patient respiratory status continued to improve, currently on 50% FiO2, PEEP decreased to 8 today patient appears volume overloaded, will proceed with 60 mg of Lasix. Chest x-ray relatively unchanged from prior. ABG showed hypoxic respiratory failure. pH normal. We will continue to wean PEEP and FiO2 as tolerated. If patient remains stable on current vent settings will perform spontaneous breathing trial Continue remdesivir and dexamethasone for COVID-19 pneumonia. DuoNebs every 6 hours scheduled Completed 5-day course of azithrom
--- NOTE | 2020-10-31 13:18 | PC.NURSE ---
P.T. AT BEDSIDE WORKING WITH PATIENT.
--- NOTE | 2020-10-31 20:27 | PC.NURSE ---
Per Dr Negron if patient is able to tolerate 50% FIO2 and PEEP of 8, pt may have a SBT in the am.
[2020-11-01] VITALS (37 sets, daily range): BP systolic 91–148; BP diastolic 47–83; PULSE 71–130; RESP 12–35; TEMP 36.6–37.5; O2SAT 89–98; BMI 37.5
--- NOTE | 2020-11-01 03:28 | PC.NURSE ---
Pt arousable to deep pain @ 2100, sedation was decreased to Propfol @ 30, Fent @ 100. At 2200 Pt began to briefly open eyes to name, but had no motor response in extremities. Vent settings, FI02 50%, TV 440, PEEP 8, RR 22, sats in the mid 90s. At 0230 pt began bucking vent, sedation was increased to prop @ 40, fent @ 100, vent no longer alarming. Sedation turned off at 0400 for SBT this AM. Pt turned q2h, oral care q2h and prn. Pt bathed, linens changed. grijalva draining clear, yellow urine, UOP 50-100/hr. Most recent GRV, 30 ml. TF increased to 46/hr-goal, pt tolerating well. VSS, no concerns at this time.
--- NOTE | 2020-11-01 04:16 | PC.NURSE ---
Sedation off at 0400, pt is alert and following commands. Pt has become tachycardic (HR 130s) with a RR of 33. Sats in the mid 90s.
--- NOTE | 2020-11-01 04:30 | PC.NURSE ---
PATIENT SWITCHED TO SBT @ THIS TIME. 8/8 AND 50%. EXHALED PG=573. RR=33. SATURATIONS 94%. ABG WILL BE DRAWN IN ONE HOUR.
[2020-11-01 05:32] LABS: ABG Base Excess -1.5 mmol/L (-2.4-2.3); ABG HCO3 22.2 mmhg (22.0-26.0); ABG Oxygen Saturation 92 % (90-100); ABG PCO2 31.7 mmhg (35.0-45.0); ABG PH 7.46 mmol/L (7.35-7.45); ABG PO2 59.1 mmhg (80-100); ABG TCO2 23.2 mmhg (23-27)
[2020-11-01 05:33] LABS: Allen's Test Acceptable; Oxygen 50% %; PEEP 8; Pressure Support 8; Source Right Radial
[2020-11-01 05:57] LABS: Basophils % 0.2 % (0.1-2.0); Eosinophils # 0.2 K/mm3 (0.0-0.4); Eosinophils % 1.2 % (0.1-12.0); Hematocrit 37.3 % (37.0-47.0); Lymphocytes # 0.7 K/mm3 (0.7-4.5); Lymphocytes % 4.8 % (10-50); Mean Corpuscular HGB Conc 33.4 g/dL (31.8-35.4); Mean Corpuscular Hemoglobin 31.1 pg (27.0-31.2); Mean Corpuscular Volume 93.3 fl (81-99); Mean Platelet Volume 11.6 fl (7.4-10.4); Monocytes # 0.4 K/mm3 (0.1-1.0); Monocytes % 2.5 % (1.7-9.3); Neutrophils # 12.7 K/mm3 (1.8-7.8); Neutrophils % 91.2 % (37.0-80.0); Platelet Count 163 K/mm3 (142-424); Red Cell Distribution Width 13.3 % (11.5-17.5); White Blood Count 13.9 K/mm3 (4.8-10.8)
--- NOTE | 2020-11-01 06:00 | XR_ITS ---
PROCEDURE: XR CHEST PORTABLE CLINICAL HISTORY: pt. intubated COMPARISON: CT CT ANGIO CHEST from 10/22/2020 CR XR CHEST PORTABLE from 10/29/2020 CR XR CHEST PORTABLE from 10/30/2020 CR XR CHEST PORTABLE from 10/31/2020 FINDINGS: The endotracheal tube remains in satisfactory position well above the gage. The NG tube is seen descending the esophagus with the tip in the upper portion of the stomach. This is a somewhat poor inspiration, there are bilateral ill-defined pneumonic infiltrates but there has been interval improvement particularly in the left perihilar region compared to yesterday's study. Findings in the right lung basically stable. Cardiac size is normal. IMPRESSION: Interval partial resolution of diffuse ill-defined pneumonic infiltrates left perihilar region, infiltrates still remain at the left base and in the right mid and lower lung field Dictated by: Dr. Valdez Arellano MD 11/01/2020 09:05 Dr. Valdez Arellano MD in [place] 11/01/2020 09:05
[2020-11-01 06:04] LABS: MANUAL DIFFERENTIAL MANUAL DIFFERENTIAL (MANUAL DIFF)
[2020-11-01 06:05] LABS: Hemoglobin 12.5 g/dL (12.2-16.2)
[2020-11-01 06:14] LABS: Chloride 105 mmol/L (98-107); Sodium 136 mmol/L (136-145)
[2020-11-01 06:16] LABS: Potassium 5.6 mmoL/L (3.5-5.1)
[2020-11-01 06:17] LABS: Alanine Aminotransferase 30 U/L (12-78); Albumin Level 3.5 g/dl (3.5-5.0); Albumin/Globulin Ratio 0.8 (1.1-1.8); Alkaline Phosphatase 70 U/L (38-126); Anion Gap 11.6 mEq/L (5-15); Aspartate Amino Transferase 73 U/L (14-36); Bilirubin,Total 1.5 mg/dl (0.2-1.3); Blood Urea Nitrogen 37 mg/dl (7-17); Carbon Dioxide 25 mmol/L (22.0-30.0); Creatinine Clearance Estimated 93 mL/min (50-200); Estimated Glomerular Filt Rate 72 ml/min (>60); GFR (African American) 87 ML/MIN (>60); Globulin 4.3 g/dL (1.3-3.2); Total Protein,Serum 7.8 g/dl (6.3-8.2)
[2020-11-01 06:18] LABS: Calcium 8.9 mg/dl (8.4-10.2); Glucose 81 mg/dl (74-100)
--- NOTE | 2020-11-01 06:54 | HMH.ACPN2 ---
Internal Medicine - PN: Subj *Date: 11/01/20 *Time: 06:54 Interval history: No acute events over last 24 hours. Patient has done well with spontaneous breathing trial. Currently she is off all sedation. Exam Vital signs and Labs for Last 24 Hours: Temp Pulse Resp BP Pulse Ox 99.0 F 126 H 22 148/80 H 91 L 11/01/20 06:00 11/01/20 06:00 11/01/20 06:41 11/01/20 06:00 11/01/20 06:41 Laboratory Results - last 24 hr 10/31/20 05:57: Total Counted 100, Neutrophils % (Manual) 94 H, Lymphocytes % (Manual) 5 L, Monocytes % (Manual) 1 L, Platelet Estimate Normal, RBC Morphology Normal 10/31/20 07:00: Specimen Source Left radial, O2 % 55, ABG pH 7.41, ABG pCO2 33.1 L, ABG pO2 64.0 L, ABG HCO3 20.7 L, ABG Total CO2 21.7 L, ABG O2 Saturation 93, ABG Base Excess -3.9 L, Connor Test Patient unable, Vent Rate 22, Tidal Volume 440, PEEP 10 11/01/20 05:00: WBC 13.9 H D, RBC 4.00 L, Hgb 12.5 D, Hct 37.3, MCV 93.3, MCH 31.1, MCHC 33.4, RDW 13.3, Plt Count 163, MPV 11.6 H, Neut % (Auto) 91.2 H, Lymph % (Auto) 4.8 L, [place] % (Auto) 2.5, Eos % (Auto) 1.2, Baso % (Auto) 0.2, Neut # (Auto) 12.7 H, Lymph # (Auto) 0.7, [place] # (Auto) 0.4, Eos # (Auto) 0.2, Baso # (Auto) 0.0 11/01/20 05:00: Sodium 136, Potassium 5.6 H, Chloride 105, Carbon Dioxide 25, Anion Gap 11.6, BUN 37 H, Creatinine 0.80, Estimated Creat Clear 93, Estimated GFR 72, Est GFR ( Amer) 87, Glucose 81, Calcium 8.9, Total Bilirubin 1.5 H, AST 73 H D, ALT 30 D, Alkaline Phosphatase 70, Total Protein 7.8, Albumin 3.5 D, Globulin 4.3 H, Albumin/Globulin Ratio 0.8 L 11/01/20 05:29: Specimen Source Right radial, O2 % 50%, ABG pH 7.46 H, ABG pCO2 31.7 L, ABG pO2 59.1 L, ABG HCO3 22.2, ABG Total CO2 23.2, ABG O2 Saturation 92, ABG Base Excess -1.5, Connor Test Acceptable, PEEP 8 I & O for Last 24 hours: Intake & Output 10/29/20 10/30/20 10/31/20 11/01/20 11:59 11:59 11:59 11:59 Intake Total 2006.542 / 2006.542 3841.125 / 3841.125 3220.167 / 3292.167 1145.25 / 1145.25 Output Total 1017 / 1047 4587 / 4752 2817 / 3134 3089 / 3089 Balance 990.542 / 960.542 -745.875 / -910.875 403.167 / 158.167 -1943.75 / -1943.75 Weight 239 lb 5 oz 243 lb 2 oz 243 lb 3.996 oz 234 lb 0.4 oz Narrative: Patient is intubated laying in bed in no distress. Patient is able to follow commands. Lungs are clear anteriorly and distant posteriorly at the bases. Heart has a rapid rate and rhythm. Abdomen is soft. Lower extremities have 1+ edema of the shins and trace edema of the feet Assessment and Plan (1) Acute hypoxemic respiratory failure Status: Acute Category: Medical Code(s): J96.01 - Acute respiratory failure with hypoxia (2) Viral pneumonia Status: Acute Category: Medical Code(s): J12.9 - Viral pneumonia, unspecified (3) COVID-19 virus infection Status: Acute Category: Medical Code(s): U07.1 - COVID-19 (4) Elevated troponin Status: Acute Category: Medical Code(s): R77.8 - Other specified abnormalities of plasma proteins (5) Hypothyroidism (acquired) Status: Acute Category: Medical Code(s): E03.9 - Hypothyroidism, unspecified (6) Hyperlipidemia Status: Acute Category: Medical Code(s): E78.5 - Hyperlipidemia, unspecified (7) Hypothyroidism Status: Acute Qualifiers: Hypothyroidism type: acquired Qualified Code(s): E03.9 - Hypothyroidism, unspecified Category: Medical Code(s): E03.9 - Hypothyroidism, unspecified (8) Obesity Status: Chronic Qualifiers: Obesity type: due to excess calories Obesity classification: adult class 1 (BMI 30 - 34.9) Body mass index: BMI 30.0-30.9 Category: Medical Code(s): E66.9 - Obesity, unspecified (9) Hypokalemia Status: Acute Category: Medical Code(s): E87.6 - Hypokalemia (10) Hyperkalemia Status: Acute Category: Medical Code(s): E87.5 - Hyperkalemia - Assessment and plan all Dx Assessment and Plan for all problems:: 1. Ventilator settings per pulmonology ser
[2020-11-01 08:22] LABS: Lymphocytes % 9 % (10-50); Monocytes % 2 % (2-9); Neutrophils % 86 % (42-76); Platelet Estimate Normal; RBC Morphology Normal; Total Cells Counted 100
--- NOTE | 2020-11-01 09:28 | PC.NURSE ---
spoke with Dr Castro, pt is receiving oral potassium at this time. Ok with MD to hold potassium this shift r/t k+ 5.6
--- NOTE | 2020-11-01 09:34 | HMH.PULMPN ---
Internal Medicine - PN: Subj *Date: 11/01/20 *Time: 10:59 Interval history: No acute respiratory events overnight. Exam - Constitutional Constitutional:: Present: no acute distress, comfortable - HENMT Exam HENMT: Present: normocephalic - Eye Exam Eyes:: Present: normal appearance both eyes and related structures - Neck Exam Neck:: Present: thyroid normal - Respiratory Exam Respiratory:: Present: crackles - Cardiovascular Exam Cardiac:: Present: S1, S2 - GI Exam GI:: Present: soft - Skin Exam Skin: Present: warm, no rash - Extremities Exam Extremities: Present: no cyanosis, no clubbing, edema Assessment and Plan (1) Acute hypoxemic respiratory failure Status: Acute Category: Medical Code(s): J96.01 - Acute respiratory failure with hypoxia (2) Viral pneumonia Status: Acute Category: Medical Code(s): J12.9 - Viral pneumonia, unspecified (3) COVID-19 virus infection Status: Acute Category: Medical Code(s): U07.1 - COVID-19 (4) Elevated troponin Status: Acute Category: Medical Code(s): R77.8 - Other specified abnormalities of plasma proteins (5) Hypothyroidism (acquired) Status: Acute Category: Medical Code(s): E03.9 - Hypothyroidism, unspecified (6) Hyperlipidemia Status: Acute Category: Medical Code(s): E78.5 - Hyperlipidemia, unspecified (7) Hypothyroidism Status: Acute Qualifiers: Hypothyroidism type: acquired Qualified Code(s): E03.9 - Hypothyroidism, unspecified Category: Medical Code(s): E03.9 - Hypothyroidism, unspecified (8) Obesity Status: Chronic Qualifiers: Obesity type: due to excess calories Obesity classification: adult class 1 (BMI 30 - 34.9) Body mass index: BMI 30.0-30.9 Category: Medical Code(s): E66.9 - Obesity, unspecified (9) Hypokalemia Status: Acute Category: Medical Code(s): E87.6 - Hypokalemia (10) Hyperkalemia Status: Acute Category: Medical Code(s): E87.5 - Hyperkalemia - Assessment and plan all Dx Assessment and Plan for all problems:: #Acute hypoxic respiratory failure: #COVID-19 pneumonia: #Pneumonia: 65-year-old no prior respiratory complaints recent diagnosis of COVID-19 pneumonia with worsening symptoms presented to the hospital needing high flow nasal cannula to maintain oxygen saturations. CT on admission showed bilateral diffuse groundglass opacities and also showed questionable subacute to chronic pulmonary embolism. Creatinine stable on admission. Patient was initiated on vancomycin cefepime and azithromycin along with remdesivir and dexamethasone on admission. Patient respiratory status continued to be critical since admission needing 40 L 100% Vapotherm and has been gradually declining with frequent episodes of desaturations eventually this morning needing a combination of high flow nasal cannula and nonrebreather to maintain her saturations barely at 86%. ABG continued to show hypoxic respiratory failure and on examination patient today appeared to be in moderate respiratory distress worsened from yesterday. After discussions with the patient patient was made to intubate and mechanically ventilated the patient. Plan: Intubated and sedated with propofol and fentanyl, appears comfortable opening eyes to verbal stimuli.. Triglycerides 120, follow with repeat labs. We will closely monitor. Continue Analgo-sedation with propofol and fentanyl with RASS goal of 0 to 1 and CPOT goal of less than or equal to 2. Patient respiratory status continued to improve, currently on 50% FiO2, PEEP decreased to 6 today. Patient successfully completed her spontaneous breathing on 50% FiO2 and PEEP of 8. Patient receiving a dose of Lasix today. Will perform SBT tomorrow morning on current ventilator settings at 50% FiO2 PEEP of 6 and will attempt extubation. Chest x-ray slight improvement. ABG showed respiratory alkalosis. Continue remdesivir and dexamethasone for COVID-19 pneumonia.
[2020-11-01 17:35] LABS: POC Glucose,Bedside 129 (70-110)
--- NOTE | 2020-11-01 18:32 | PC.NURSE ---
residual checked at 1800. 200ml noted in residual. TF held at this time. pt has preventative sacral dsg in place. sedation was placed back on pt this am following successful 4 hr SBT. another SBT to be completed in the am and remain in spontaneous mode until Dr Negron rounds in preparation for potential extubation. sedation to be turned off at approx 430
--- NOTE | 2020-11-01 20:19 | XR_ITS ---
PROCEDURE: XR CHEST PORTABLE CLINICAL HISTORY: Tube placement verification. COMPARISON: CT CT ANGIO CHEST from 10/22/2020 CR XR CHEST PORTABLE from 10/30/2020 CR XR CHEST PORTABLE from 10/31/2020 CR XR CHEST PORTABLE from 11/01/2020 FINDINGS: The NG tube is seen descending the esophagus with tip in the upper portion of the stomach along the greater curvature. The endotracheal tube remains in satisfactory position approximately 3.5 cm above the gage. Prominent diffuse ill-defined pneumonic opacities are seen in both lung ku with relative sparing of the left upper lung field. IMPRESSION: Satisfactory position endotracheal tube and NG tube, diffuse bilateral pneumonia remaining basically stable from yesterday's study Dictated by: Dr. Valdez Arellano MD 11/02/2020 07:59 Dr. Valdez Arellano MD in [place] 11/02/2020 07:59
--- NOTE | 2020-11-01 20:20 | PC.NURSE ---
Pt's OG was supposed to be at 59 @ the lip. Found to be at 54. OG advanced to 59 and chest x-ray ordered for tube placement verification.
[2020-11-01 21:48] LABS: Vancomycin,Trough 21.5 ug/mL (5.0-10.0)
--- NOTE | 2020-11-01 22:59 | PC.NURSE ---
She is intubated and sedated with plans for a SBT in am. Plans to wean off her sedation around 0400. Current vent settings are: AC mode, TV 440, R 22, PEEP 6, FiO2 45%. Pulmocare restarted at 20mL/hr after tube placement was verified. Urine is yellow with sediment. Trace edema noted on bilateral ankles. She is deeply sedated at this time and not following commands. Gag reflex is present. Requires frequent oral suctioning.
[2020-11-02] VITALS (35 sets, daily range): BP systolic 108–165; BP diastolic 54–107; PULSE 88–140; RESP 22–40; TEMP 37.2–38.1; O2SAT 82–100; BMI 37.5
--- NOTE | 2020-11-02 03:12 | PC.NURSE ---
Resp. Care note: ETT advanced from 18 cm to 20 cm upon discovery of positioning, earlier in the shift. And then again at 0300 the tube was in the same position. ETT repositioned and resecured per myself.
--- NOTE | 2020-11-02 04:20 | PC.NURSE ---
Sedation off at 0400.
--- NOTE | 2020-11-02 05:33 | PC.NURSE ---
Her oxygen was 86% after being switched to the SBT. Respiratory increased her FiO2 to 60%. Her current VS are 158/97, HR 123, R 38, 89%.
[2020-11-02 05:44] LABS: Chloride 103 mmol/L (98-107); Sodium 138 mmol/L (136-145)
[2020-11-02 05:45] LABS: Potassium 3.8 mmoL/L (3.5-5.1)
[2020-11-02 05:47] LABS: Blood Urea Nitrogen 35 mg/dl (7-17); Creatinine Clearance Estimated 92 mL/min (50-200); Estimated Glomerular Filt Rate 63 ml/min (>60); GFR (African American) 76 ML/MIN (>60)
[2020-11-02 05:48] LABS: Anion Gap 7.8 mEq/L (5-15); Calcium 8.9 mg/dl (8.4-10.2); Carbon Dioxide 31 mmol/L (22.0-30.0); Glucose 83 mg/dl (74-100)
[2020-11-02 05:55] LABS: Basophils % 0.3 % (0.1-2.0); Eosinophils # 0.2 K/mm3 (0.0-0.4); Eosinophils % 1.6 % (0.1-12.0); Hematocrit 37.9 % (37.0-47.0); Hemoglobin 12.3 g/dL (12.2-16.2); Lymphocytes # 0.7 K/mm3 (0.7-4.5); Lymphocytes % 5.4 % (10-50); MANUAL DIFFERENTIAL MANUAL DIFFERENTIAL (MANUAL DIFF); Mean Corpuscular HGB Conc 32.5 g/dL (31.8-35.4); Mean Corpuscular Hemoglobin 30.9 pg (27.0-31.2); Mean Corpuscular Volume 95.2 fl (81-99); Mean Platelet Volume 10.2 fl (7.4-10.4); Monocytes # 0.4 K/mm3 (0.1-1.0); Monocytes % 3.1 % (1.7-9.3); Neutrophils # 11.2 K/mm3 (1.8-7.8); Neutrophils % 89.6 % (37.0-80.0); Platelet Count 164 K/mm3 (142-424); Red Blood Count 3.98 M/mm3 (4.20-5.40); Red Cell Distribution Width 13.7 % (11.5-17.5); White Blood Count 12.5 K/mm3 (4.8-10.8)
--- NOTE | 2020-11-02 06:00 | XR_ITS ---
PROCEDURE: XR CHEST PORTABLE CLINICAL HISTORY: pt. intubated COMPARISON: 11/01/2020, 10/31/2020 single-view chest x-rays, 10/22/[address] FINDINGS: Endotracheal tube at has retracted section is now at the thoracic inlet. This was reported to the attending physician. Feeding tube remains in place. There is redemonstration of bilateral extensive ground-glass opacities with scattered areas of consolidation which is most prominent at the medial right lung base and which may have a component of atelectasis. There is indistinctness and blunting of the costophrenic angles bilaterally however this is more likely to represent areas of infiltrate and consolidation as rather than pleural effusions as pleural effusions are not typical with covid pneumonia. There is improved aeration in the left greater than right upper lung ku which could be due to ventilator settings or less likely imaging technique. IMPRESSION: Endotracheal tube repositioned to the thoracic inlet. This finding was reported to the attending physician. Diffuse bilateral infiltrates and areas of consolidation with improved aeration in the left greater than right upper lung ku. Dictated by: Whitney Lamb MD 11/02/2020 07:39 Whitney Lamb MD in [facility] 11/02/2020 07:39
[2020-11-02 06:22] LABS: Lymphocytes % 5 % (10-50); Monocytes % 3 % (2-9); Neutrophils % 90 % (42-76); Platelet Estimate Normal; RBC Morphology Normal; Total Cells Counted 100
--- NOTE | 2020-11-02 07:03 | HMH.ACPN2 ---
Internal Medicine - PN: Subj *Date: 11/02/20 *Time: 07:03 Interval history: Patient remained stable. She has begun her spontaneous breathing trial this morning. No acute events overnight Exam Vital signs and Labs for Last 24 Hours: Temp Pulse Resp BP Pulse Ox 99.7 F H 116 H 36 H 144/80 H 94 L 11/02/20 07:00 11/02/20 07:00 11/02/20 07:00 11/02/20 07:00 11/02/20 07:00 Laboratory Results - last 24 hr 11/01/20 05:00: Total Counted 100, Neutrophils % (Manual) 86 H, Band Neutrophils % 3.0, Lymphocytes % (Manual) 9 L, Monocytes % (Manual) 2, Platelet Estimate Normal, RBC Morphology Normal 11/01/20 17:27: POC Glucose 129 H 11/01/20 20:50: Vancomycin Trough 21.5 H 11/02/20 04:15: WBC 12.5 H, RBC 3.98 L, Hgb 12.3, Hct 37.9, MCV 95.2, MCH 30.9, MCHC 32.5, RDW 13.7, Plt Count 164, MPV 10.2, Neut % (Auto) 89.6 H, Lymph % (Auto) 5.4 L, [place] % (Auto) 3.1, Eos % (Auto) 1.6, Baso % (Auto) 0.3, Neut # (Auto) 11.2 H, Lymph # (Auto) 0.7, [place] # (Auto) 0.4, Eos # (Auto) 0.2, Baso # (Auto) 0.0, Total Counted 100, Neutrophils % (Manual) 90 H, Band Neutrophils % 2.0, Lymphocytes % (Manual) 5 L, Monocytes % (Manual) 3, Platelet Estimate Normal, RBC Morphology Normal 11/02/20 04:15: Sodium 138, Potassium 3.8 D, Chloride 103, Carbon Dioxide 31 H D, Anion Gap 7.8, BUN 35 H, Creatinine 0.90, Estimated Creat Clear 92, Estimated GFR 63, Est GFR ( Amer) 76, Glucose 83, Calcium 8.9 I & O for Last 24 hours: Intake & Output 10/30/20 10/31/20 11/01/20 11/02/20 11:59 11:59 11:59 11:59 Intake Total 3841.125 / 3841.125 3220.167 / 3292.167 1402.25 / 1402.25 1421.5 / 1421.5 Output Total 4587 / 4752 2817 / 3134 3274 / 3274 2225 / 2225 Balance -745.875 / -910.875 403.167 / 158.167 -1871.75 / -1871.75 -803.5 / -803.5 Weight 243 lb 2 oz 243 lb 3.996 oz 234 lb 0.4 oz 233 lb 6 oz - Constitutional no acute distress Comments: Appears comfortable without signs of respiratory distress or increased work of breathing - *Routine HEENT Exam Head: Present: normocephalic Eye: Present: EOMI, PERRL ENT: Present: mucous membranes moist - *Routine Respiratory Exam Comments: Clear anteriorly. Diminished breath sounds posteriorly - *Routine Cardiovascular Exam Present: RRR - *Routine Abdominal Exam Present: soft, normoactive bowel sounds. Absent: tenderness - *Routine Extremities Exam Present: edema (Trace edema of the posterior lower legs) - *Routine Neurological Exam Present: alert Patient makes eye contact. She can follow directions. Answers questions with movements of her head. Assessment and Plan (1) Acute hypoxemic respiratory failure Status: Acute Category: Medical Code(s): J96.01 - Acute respiratory failure with hypoxia (2) Viral pneumonia Status: Acute Category: Medical Code(s): J12.9 - Viral pneumonia, unspecified (3) COVID-19 virus infection Status: Acute Category: Medical Code(s): U07.1 - COVID-19 (4) Elevated troponin Status: Acute Category: Medical Code(s): R77.8 - Other specified abnormalities of plasma proteins (5) Hypothyroidism (acquired) Status: Acute Category: Medical Code(s): E03.9 - Hypothyroidism, unspecified (6) Hyperlipidemia Status: Acute Category: Medical Code(s): E78.5 - Hyperlipidemia, unspecified (7) Hypothyroidism Status: Acute Qualifiers: Hypothyroidism type: acquired Qualified Code(s): E03.9 - Hypothyroidism, unspecified Category: Medical Code(s): E03.9 - Hypothyroidism, unspecified (8) Obesity Status: Chronic Qualifiers: Obesity type: due to excess calories Obesity classification: adult class 1 (BMI 30 - 34.9) Body mass index: BMI 30.0-30.9 Category: Medical Code(s): E66.9 - Obesity, unspecified (9) Hypokalemia Status: Acute Category: Medical Code(s): E87.6 - Hypokalemia (10) Hyperkalemia Status: Resolved Category: Medical Code(s): E87.5 - Hyperkalemia - Assessment and plan all Dx Assessment
--- NOTE | 2020-11-02 08:49 | P.CONPHA_ITS ---
- Pharmacy Consult Date: 11/02/20 Time: 08:49 Referring provider: DR. BOLTON Reason for Consult:: VANCOMYCIN TROUGH LEVEL Allergies and ADEs:: Allergies Allergy/AdvReac Type Severity Reaction Status Date / Time No Known Allergies Allergy Unverified 10/22/20 08:44 Home Medications:: Home Medications Medication Instructions Recorded Confirmed Type Levothyroxine Sodium 125 mcg PO DAILY 10/21/20 10/22/20 History [Levothyroxine 125mcg (0.125mg) Tab] Pravastatin Sodium 10 mg PO HS 10/21/20 10/22/20 History Height: 1.68 m Weight: 105.857 kg Laboratory Results:: Laboratory Results - last 24 hr 11/01/20 17:27: POC Glucose 129 H 11/01/20 20:50: Vancomycin Trough 21.5 H 11/02/20 04:15: WBC 12.5 H, RBC 3.98 L, Hgb 12.3, Hct 37.9, MCV 95.2, MCH 30.9, MCHC 32.5, RDW 13.7, Plt Count 164, MPV 10.2, Neut % (Auto) 89.6 H, Lymph % (Auto) 5.4 L, [place] % (Auto) 3.1, Eos % (Auto) 1.6, Baso % (Auto) 0.3, Neut # (Auto) 11.2 H, Lymph # (Auto) 0.7, [place] # (Auto) 0.4, Eos # (Auto) 0.2, Baso # (Auto) 0.0, Total Counted 100, Neutrophils % (Manual) 90 H, Band Neutrophils % 2.0, Lymphocytes % (Manual) 5 L, Monocytes % (Manual) 3, Platelet Estimate Normal, RBC Morphology Normal 11/02/20 04:15: Sodium 138, Potassium 3.8 D, Chloride 103, Carbon Dioxide 31 H D, Anion Gap 7.8, BUN 35 H, Creatinine 0.90, Estimated Creat Clear 92, Estimated GFR 63, Est GFR ( Amer) 76, Glucose 83, Calcium 8.9 Medical History: Reports:: Hyperlipidemia, Hypertension Denies:: Cancer, Diabetes Mellitus Type 1, Diabetes Mellitus Type 2, MRSA Assessment and Plan (1) Acute hypoxemic respiratory failure Status: Acute Category: Medical Code(s): J96.01 - Acute respiratory failure with hypoxia (2) Viral pneumonia Status: Acute Category: Medical Code(s): J12.9 - Viral pneumonia, unspecified (3) COVID-19 virus infection Status: Acute Category: Medical Code(s): U07.1 - COVID-19 (4) Elevated troponin Status: Acute Category: Medical Code(s): R77.8 - Other specified abnormalities of plasma proteins (5) Hypothyroidism (acquired) Status: Acute Category: Medical Code(s): E03.9 - Hypothyroidism, unspecified (6) Hyperlipidemia Status: Acute Category: Medical Code(s): E78.5 - Hyperlipidemia, unspecified (7) Hypothyroidism Status: Acute Qualifiers: Hypothyroidism type: acquired Qualified Code(s): E03.9 - Hypothyroidism, unspecified Category: Medical Code(s): E03.9 - Hypothyroidism, unspecified (8) Obesity Status: Chronic Qualifiers: Obesity type: due to excess calories Obesity classification: adult class 1 (BMI 30 - 34.9) Body mass index: BMI 30.0-30.9 Category: Medical Code(s): E66.9 - Obesity, unspecified (9) Hypokalemia Status: Acute Category: Medical Code(s): E87.6 - Hypokalemia (10) Hyperkalemia Status: Resolved Category: Medical Code(s): E87.5 - Hyperkalemia - Assessment and plan all Dx Assessment and Plan for all problems:: BASED ON PATIENT FACTORS AND VANCOMYCIN TROUGH LEVEL, RECOMMEND CHANGING DOSE AND INTERVAL TO VANCOMYCIN 1500 MG IV Q18H. PHARMACY WILL CONTINUE TO MONITOR DAILY AND ADJUST APPROPRIATE.
--- NOTE | 2020-11-02 10:42 | HMH.PULMPN ---
Internal Medicine - PN: Subj *Date: 11/02/20 *Time: 10:42 Interval history: No acute respiratory vents overnight. Exam - Constitutional Constitutional:: Present: no acute distress, comfortable - HENMT Exam HENMT: Present: normocephalic, atraumatic - Eye Exam Eyes:: Present: eyelids normal - Neck Exam Neck:: Present: thyroid normal - Respiratory Exam Respiratory:: Present: no respiratory distress, normal respiratory effort, crackles - Cardiovascular Exam Cardiac:: Present: S1, S2 - GI Exam GI:: Present: soft - Skin Exam Skin: Present: warm, no rash - Neurological Exam Neurological: Present: alert, awake - Extremities Exam Extremities: Present: no cyanosis, no clubbing, edema Assessment and Plan (1) Acute hypoxemic respiratory failure Status: Acute Category: Medical Code(s): J96.01 - Acute respiratory failure with hypoxia (2) Viral pneumonia Status: Acute Category: Medical Code(s): J12.9 - Viral pneumonia, unspecified (3) COVID-19 virus infection Status: Acute Category: Medical Code(s): U07.1 - COVID-19 (4) Elevated troponin Status: Acute Category: Medical Code(s): R77.8 - Other specified abnormalities of plasma proteins (5) Hypothyroidism (acquired) Status: Acute Category: Medical Code(s): E03.9 - Hypothyroidism, unspecified (6) Hyperlipidemia Status: Acute Category: Medical Code(s): E78.5 - Hyperlipidemia, unspecified (7) Hypothyroidism Status: Acute Qualifiers: Hypothyroidism type: acquired Qualified Code(s): E03.9 - Hypothyroidism, unspecified Category: Medical Code(s): E03.9 - Hypothyroidism, unspecified (8) Obesity Status: Chronic Qualifiers: Obesity type: due to excess calories Obesity classification: adult class 1 (BMI 30 - 34.9) Body mass index: BMI 30.0-30.9 Category: Medical Code(s): E66.9 - Obesity, unspecified (9) Hypokalemia Status: Acute Category: Medical Code(s): E87.6 - Hypokalemia (10) Hyperkalemia Status: Resolved Category: Medical Code(s): E87.5 - Hyperkalemia - Assessment and plan all Dx Assessment and Plan for all problems:: #Acute hypoxic respiratory failure: #COVID-19 pneumonia: #Pneumonia: 65-year-old no prior respiratory complaints recent diagnosis of COVID-19 pneumonia with worsening symptoms presented to the hospital needing high flow nasal cannula to maintain oxygen saturations. CT on admission showed bilateral diffuse groundglass opacities and also showed questionable subacute to chronic pulmonary embolism. Creatinine stable on admission. Patient was initiated on vancomycin cefepime and azithromycin along with remdesivir and dexamethasone on admission. Patient respiratory status continued to be critical since admission needing 40 L 100% Vapotherm and has been gradually declining with frequent episodes of desaturations eventually this morning needing a combination of high flow nasal cannula and nonrebreather to maintain her saturations barely at 86%. ABG continued to show hypoxic respiratory failure and on examination patient today appeared to be in moderate respiratory distress worsened from yesterday. After discussions with the patient patient was made to intubate and mechanically ventilated the patient. Plan: Patient off sedation this morning successfully completed spontaneous breathing trial. Awake and following commands. Patient respiratory status continued to improve, currently on 50% FiO2, PEEP decreased to 6 today. Patient successfully completed her spontaneous breathing on 50% FiO2 and PEEP of 6. We will extubate to high flow nasal cannula Completed 10-day course of remdesivir and dexamethasone for COVID-19 pneumonia. DuoNebs every 6 hours scheduled Completed 5-day course of azithromycin. Completed 7-day course of cefepime. Tracheal aspirate cultures from 10/25/2020 + for staph epi methicillin resistant for which she completed vancomycin course. Will discontinue vancomy
--- NOTE | 2020-11-02 14:38 | PC.NURSE ---
Pt sedation turned off at 0400 per shift engineer RN for spontaneous breathing trial this AM. On morning rounds Dr Negron stated he planned to order 60mg lasix then extubate 1 hr later. 60mg of lasix IV given at 1045. Pt appeared anxious and restless. She kept grabbing at ET tube trying to remove it. HR increased to 140's-150's, respirations were upper 20's-30's. Respiratory and myself at bedside trying to calm and comfort patient. Pt eventually relaxed but as soon as we left the room she attempted to self extubate. She did this multiple times. Pt was extubated at 1115, respiratory at bedside. Dr Negron notified. 1mg morphine IV ordered and given. Pt placed on bipap. Pt tolerating well. O2 sats 92-96.
--- NOTE | 2020-11-02 18:16 | PC.NURSE ---
Pt able to follow commands such as squeezing hand and nodding yes or no, but when asked where she is she unable to verbalize. All PO meds held at this point until able to assess swallowing. She remains on bipap with O2 sats running low-mid 90's. HR is still in the 110's. [place] is to bedside draining yellow urine, some sediment noted. A little over 1600 mls of urine out this shift. Pt repositioned q2hrs. She had a moderate sized bm this shift. Dressing to coccyx changed. Skin is intact, dressing used as preventative. updated on plan of care. Will continue to monitor.
--- NOTE | 2020-11-02 20:34 | PC.NURSE ---
She is alert and able to nod yes/no to questions appropriately. She is able to follow commands such as moving her extremities. Severe weakness noted. She can move her arms when asked but is unable to lift them off the bed. She will also move her feet but does not move her legs. Passive ROM performed. She denies pain. A polymen was placed on the bridge of her nose to help prevent skin breakdown. Oral care provided. Oral cavity and lips are dry. Urine is yellow with sediment. Small BM. DSG replaced on coccyx. No edema present. Continues on bipap with 70% FiO2. Sinus tach on telemetry.
[2020-11-03] VITALS (34 sets, daily range): BP systolic 63–147; BP diastolic 34–96; PULSE 69–140; RESP 20–58; TEMP 36.7–38.8; O2SAT 75–98; BMI 36.4
[2020-11-03 01:18] LABS: ABG Base Excess 0.5 mmol/L (-2.4-2.3); ABG HCO3 22.7 mmhg (22.0-26.0); ABG Oxygen Saturation 77 % (90-100); ABG PCO2 25.9 mmhg (35.0-45.0); ABG TCO2 23.5 mmhg (23-27)
--- NOTE | 2020-11-03 01:23 | ECG_ITS ---
APPROVED REPORT Exam: Resting ECG HR:136 bpm ECG Measurements Heart Rate 136 AXES MI 118 P 64 QRSd 82 QRS -13 QT 372 T -21 QTc 559 Conclusion Age and gender specific ECG analysis Sinus tachycardia with fusion complexes ST elevation, consider anterolateral injury or acute infarct ACUTE AL Abnormal ECG Electronically signed by : Yoav Puga, 11/03/2020 17:27:42
--- NOTE | 2020-11-03 01:31 | XR_ITS ---
PROCEDURE: XR CHEST PORTABLE obtained at 1:24 a.m. CLINICAL HISTORY: SOA Rapid response COMPARISON: CT CT ANGIO CHEST from 10/22/2020 CR XR CHEST PORTABLE from 11/01/2020 CR XR CHEST PORTABLE from 11/01/2020 CR XR CHEST PORTABLE from 11/02/2020 FINDINGS: There is worsening severe bilateral infiltrates in with areas of worsening basilar consolidation. No definite pleural effusions. IMPRESSION: Sitting of severe bilateral infiltrates with areas of worsening bibasilar consolidation. Dictated by: Whitney Lamb MD 11/03/2020 08:18 Whitney Lamb MD in [place] 11/03/2020 08:18
[2020-11-03 01:46] LABS: Blood Urea Nitrogen 35 mg/dl (7-17); Carbon Dioxide 29 mmol/L (22.0-30.0); Chloride 103 mmol/L (98-107); Creatinine Clearance Estimated 92 mL/min (50-200); Estimated Glomerular Filt Rate 84 ml/min (>60); GFR (African American) 101 ML/MIN (>60); Glucose 145 mg/dl (74-100); Sodium 140 mmol/L (136-145)
[2020-11-03 01:47] LABS: Basophils % 0.1 % (0.1-2.0); Eosinophils # 0.1 K/mm3 (0.0-0.4); Eosinophils % 0.4 % (0.1-12.0); Hematocrit 42.8 % (37.0-47.0); Lymphocytes # 0.6 K/mm3 (0.7-4.5); Lymphocytes % 3.5 % (10-50); Mean Corpuscular HGB Conc 32.7 g/dL (31.8-35.4); Mean Corpuscular Hemoglobin 30.8 pg (27.0-31.2); Mean Corpuscular Volume 94.4 fl (81-99); Mean Platelet Volume 9.3 fl (7.4-10.4); Monocytes # 0.3 K/mm3 (0.1-1.0); Neutrophils # 15.8 K/mm3 (1.8-7.8); Platelet Count 128 K/mm3 (142-424); Red Blood Count 4.53 M/mm3 (4.20-5.40); Red Cell Distribution Width 13.8 % (11.5-17.5); White Blood Count 16.8 K/mm3 (4.8-10.8)
[2020-11-03 01:49] LABS: MANUAL DIFFERENTIAL MANUAL DIFFERENTIAL (MANUAL DIFF)
--- NOTE | 2020-11-03 01:53 | ECG_ITS ---
APPROVED REPORT Exam: Resting ECG HR:107 bpm ECG Measurements Heart Rate 107 AXES MD 128 P 22 QRSd 76 QRS -6 QT 294 T 18 QTc 392 Conclusion Age and gender specific ECG analysis Sinus tachycardia with premature ventricular complexes or fusion complexes Low voltage QRS ST elevation, consider anterolateral injury or acute infarct ACUTE ID Abnormal ECG Electronically signed by : Yoav Puga, 11/04/2020 14:58:58
[2020-11-03 01:56] LABS: POC Glucose,Bedside 133 (70-110)
[2020-11-03 02:20] LABS: Troponin I 8.37 ng/ml (0.00-0.034)
--- NOTE | 2020-11-03 02:22 | PC.NURSE ---
At 0030 mental health consultant MD was paged for patient being fidgety, unable to calm, BP 145/93, HR 138, R 38, O2 84%. Order received for morphine 1mg q 2 hours PRN. She received a dose of morphine. Respiratory was able to talk to her and calm her down for a short period of time. 0045- HR 120, 93% Respiratory exited room and notified nurse that patient stated her back was hurting. Pt assessed and nodded her head yes when asked if her back hurt. During turning and repositioning, she was noted to be incontinent of stool. Purnima-care provided and linens were changed. Pt's O2 decreased to 79%. FiO2 was increased to 100%. Rhythm changed noted with apparent ST elevation and widening QRS. 0111-rapid red called. EKG obtained. Dr. Ellis notified. Dr. Jones spoke with Dr. Ellis. Ordered received lopressor 5mg IV q 5 mins. She received a total of 25mg of Lopressor IV. Also received lasix 40mg IV. Her pulse decreased from 144 to 107 after the doses. A 2nd EKG was obtained and Dr. Ellis was notified by Dr. Jones. New order received to start pt on an esmolol gtt with a goal of a pulse between 70s-80s. Setting maxed on bipap at this time. Current VS at 0242 BP 120/90, HR 120, O2 88%.
[2020-11-03 02:25] LABS: Oxygen 100 %
[2020-11-03 02:26] LABS: Allen's Test Acceptable; Source Right Radial
[2020-11-03 02:27] LABS: ABG PH 7.56 mmol/L (7.35-7.45)
[2020-11-03 02:28] LABS: ABG PO2 37.1 mmhg (80-100)
[2020-11-03 02:33] LABS: Lymphocytes % 4 % (10-50); Monocytes % 2 % (2-9); Neutrophils % 93 % (42-76); Platelet Estimate Slight Decrease; RBC Morphology Normal; Total Cells Counted 100
--- NOTE | 2020-11-03 02:55 | PC.NURSE ---
Attempted to contact Mahin Foster at this time. No answer.
--- NOTE | 2020-11-03 03:00 | PC.NURSE ---
0253-Dr. Puga notified of rapid red response & pt's condition, critical troponin 8.37, maxed on bipap settings. Respiratory rate 58, O2 89% BP 117/91, HR 117. Orders received to reintubate. 0300-Mahin Foster returned called and updated on pt's current status.
--- NOTE | 2020-11-03 03:29 | XR_ITS ---
PROCEDURE: XR CHEST PORTABLE CLINICAL HISTORY: post intubation COMPARISON: CT CT ANGIO CHEST from 10/22/2020 CR XR CHEST PORTABLE from 11/01/2020 CR XR CHEST PORTABLE from 11/02/2020 CR XR CHEST PORTABLE from 11/03/2020 FINDINGS: There has been interval intubation. Endotracheal tube tip is 3 centimeters above the gage. There has been interval development of a large left pneumothorax. There is mediastinal shift to the right and severe extensive bilateral infiltrates are redemonstrated. Depression of the left costophrenic angle raises possibility of a tension pneumothorax. Attending physician is aware. IMPRESSION: Interval intubation and large, possibly tension, left pneumothorax. Attending physician is aware. Dictated by: Whitney Lamb MD 11/03/2020 08:20 Whitney Lamb MD in [place] 11/03/2020 08:20
--- NOTE | 2020-11-03 03:58 | XR_ITS ---
PROCEDURE: XR CHEST PORTABLE CLINICAL HISTORY: chest tube placement verification. COMPARISON: CT CT ANGIO CHEST from 10/22/2020 CR XR CHEST PORTABLE from 11/02/2020 CR XR CHEST PORTABLE from 11/03/2020 CR XR CHEST PORTABLE from 11/03/2020 FINDINGS: There has been interval placement a left chest tube with near complete resolution of large left pneumothorax. Endotracheal tube tip approximately 2.5 centimeters above the gage. IMPRESSION: Interval left chest tube placement with near complete resolution of large left pneumothorax. Well-positioned endotracheal tube. Dictated by: Whitney Lamb MD 11/03/2020 08:22 Whitney Lamb MD in [place] 11/03/2020 08:22
[2020-11-03 04:29] LABS: ABG HCO3 18.3 mmhg (22.0-26.0); ABG Oxygen Saturation 86 % (90-100); ABG PCO2 37.3 mmhg (35.0-45.0); ABG PH 7.31 mmol/L (7.35-7.45); ABG PO2 57.3 mmhg (80-100); ABG TCO2 19.4 mmhg (23-27)
--- NOTE | 2020-11-03 04:29 | PC.NURSE ---
0304-Quoc Zamora Daniela, Jo, Debbie, Krystle, Dr. Jones, and repairer typewriter in room in preparation for intubation. 0307-Dr. Jones ordered Versed 4mg IV. 0307-BP 113/86, HR 124, Resp 55, O2 86%. Etomidate [address] Jones 0308-Versed administered. BP 131/91, HR 125, Resp 55, O2 87% 030- Dr. Jones ordered Succ 100. Pt currently receiving ventilation via ambu bag. 0310 Dr. Jones ordered Versed 4mg IV. Versed administered. HR 119, Resp 41, O2 75%. 031- Etomidate administered. HR 114, Resp 38, O2 82%. 0312-Succ administered. 0314- HR 102, Resp 46, O2 66%. 0315- 90/58, HR 109, O2 77%. 0316-HR 109, Resp 39, O2 77%. 0318-O2 89%, HR 102. 7.[address] Jones @ 20 @ the lip. 031-radiology paged. 032-HR 87, O2 88%. 032-BP 98/58, HR 71, R 25, 94% 032-Dr. Jones ordered propofol-see MAR for goals. EKG ordered. 033-Dr. Jones read Left pneumo on chest x-ray 033-Dr. Brown paged. 0340-BP 68/40 Right arm, Left arm 80/48 034-Dr. Jones ordered chest tube. 0350-Dr. Jones placed #28 Fr in left side.
[2020-11-03 04:32] LABS: Oxygen 100% %; PEEP 16; Tidal Volume 440; Vent Rate 25
[2020-11-03 04:33] LABS: Allen's Test Acceptable; Source Right Radial
--- NOTE | 2020-11-03 04:54 | PC.NURSE ---
0345-Dr. Jones ordered Levophed-see MAR for goals. 0347-BP 92/56, HR 115, resp 30, O2 75%. 0353-BP 104/64, HR 119, O2 81%. 0356-Radiology notified of need for xray. 0409-Dr. Jones ordered Dr. Brown consult for chest tube management.
--- NOTE | 2020-11-03 05:01 | PC.NURSE ---
0414-Mahin Foster updated 0448-BP 81/59, HR 117, O2 80%. Dr. Puga notified of patient's current status. Agreed that to be notified and offer him to visit patient. 0450-Mahin Fostre updated and is calling her children. He plans to be on his way to the hospital. 0505-BP 63/34, HR 112, O2 76%.
--- NOTE | 2020-11-03 05:09 | XR_ITS ---
PROCEDURE: XR CHEST PORTABLE CLINICAL HISTORY: Decreasing O2 sat. COMPARISON: CT CT ANGIO CHEST from 10/22/2020 CR XR CHEST PORTABLE from 11/03/2020 CR XR CHEST PORTABLE from 11/03/2020 CR XR CHEST PORTABLE from 11/03/2020 FINDINGS: Well-positioned endotracheal tube remains in place. Left chest tube remains in place. There are severe bilateral infiltrates and bibasilar consolidation. There has been interval development of small right apical pneumothorax. There has been near complete resolution of left pneumothorax. No definite pleural effusions. IMPRESSION: NEW small RIGHT apical pneumothorax. Minimal residual LEFT pneumothorax with left chest tube in place. Dictated by: Whitney Lamb MD 11/03/2020 08:35 Whitney Lamb MD in [place] 11/03/2020 08:35
--- NOTE | 2020-11-03 05:36 | PC.NURSE ---
0516-Dr. Jones ordered Fentanyl gtt CPOT goal = or <2. 0537-Mahin Foster is here at this time.
--- NOTE | 2020-11-03 05:37 | HMH.RR ---
Acute Rapid Response Note - Subjective Date Responded: 11/03/20 Time Responded: 01:20 - Objective Findings: called for increased hr with abn ekg- pt had been extubated earlier today but having element of resp distress - Vital Signs - Last 4 Hours Temperature 99.4 F 11/03/20 03:00 Temperature Source Axillary 11/03/20 03:00 Pulse Rate 111 H 11/03/20 05:00 Respiratory Rate 46 H 11/03/20 05:00 Blood Pressure 63/34 L 11/03/20 05:00 Blood Pressure Mean 43 11/03/20 05:00 Blood Pressure Source Automatic Cuff 11/03/20 05:00 Blood Pressure Position Supine 11/03/20 05:00 02 Sat by Pulse Oximetry 78 L 11/03/20 05:00 Oxygen Delivery Method 11/03/20 05:00 Oxygen Flow Rate (LPM) 40 11/02/20 12:15 Lab Results for Past 12 Hours 11/03/20 : Specimen Source Right radial, O2 % 100%, ABG pH 7.31 L, ABG pCO2 37.3, ABG pO2 57.3 L, ABG HCO3 18.3 L, ABG Total CO2 19.4 L, ABG O2 Saturation 86 L*, ABG Base Excess -8.0 L, Connor Test Acceptable, Vent Rate 25, Tidal Volume 440, PEEP 16 11/03/20 01:50: POC Glucose 133 H 11/03/20 01:20: Sodium 140, Potassium 4.0, Chloride 103, Carbon Dioxide 29, Anion Gap 12.0, BUN 35 H, Creatinine 0.70 D, Estimated Creat Clear 92, Estimated GFR 84, Est GFR ( Amer) 101 D, Glucose 145 H D, Calcium 9.0 11/03/20 01:20: WBC 16.8 H D, RBC 4.53, Hgb 14.0 D, Hct 42.8, MCV 94.4, MCH 30.8, MCHC 32.7, RDW 13.8, Plt Count 128 L, MPV 9.3, Neut % (Auto) 94.0 H, Lymph % (Auto) 3.5 L, [place] % (Auto) 2.0, Eos % (Auto) 0.4, Baso % (Auto) 0.1, Neut # (Auto) 15.8 H, Lymph # (Auto) 0.6 L, [place] # (Auto) 0.3, Eos # (Auto) 0.1, Baso # (Auto) 0.0, Total Counted 100, Neutrophils % (Manual) 93 H, Band Neutrophils % 1.0, Lymphocytes % (Manual) 4 L, Monocytes % (Manual) 2, Platelet Estimate Slight decrease, RBC Morphology Normal 11/03/20 01:20: Troponin I 8.37 H 11/03/20 01:17: Specimen Source Right radial, O2 % 100, ABG pH 7.56 H*, ABG pCO2 25.9 L, ABG pO2 37.1 L, ABG HCO3 22.7, ABG Total CO2 23.5, ABG O2 Saturation 77 L*, ABG Base Excess 0.5, Connor Test Acceptable My Orders Category Date Time Status Consult to Surgeon On-Call [Consult to On-Call Gen'l Cons 11/03/20 04:13 Ordered Surgeon] [CONS] Routine Chest XR -- portable [XR chest portable] Stat Exams 11/03/20 01:31 Taken Chest XR -- portable [XR chest portable] Stat Exams 11/03/20 03:58 Taken Chest XR -- portable [XR chest portable] Stat Exams 11/03/20 05:09 Taken XR chest portable Stat Exams 11/03/20 03:29 Taken BMP [Basic Metabolic Panel] Stat Lab 11/03/20 01:20 Completed CBC w/Auto Diff [Complete Blood Count Auto Diff] Stat Lab 11/03/20 01:20 Completed Trop T [Troponin I] Stat Lab 11/03/20 01:20 Completed Dextrose 5 % in Water [Dextrose 5% Water 250 mL IV] 250 Med 11/03/20 04:45 Active ml Norepinephrine Bitartrate [Levophed 4mg/4mL vial] 8 mg IV 12 mcg/min Metoprolol Tartrate [Metoprolol Tartrate 5mg/5mL Vial] Med 11/03/20 04:25 Active 5 mg IV Q5MINP PRN propofoL [Diprivan 10mg/mL 100mL Bottle] 100 ml Med 11/03/20 04:45 Active IV 30 mcg/kg/min - Radiology Findings #1 Xray Reviewed: Chest Image Reviewed: Yes I reviewed the patient's radiology image ED XR Results: Abnormal (increased ) #2 Xray Reviewed: Chest Image Reviewed: Yes I reviewed the patient's radiology image ED XR Results: Abnormal (et tube with pxt on lt ) #3 Xray Reviewed: Chest Image Reviewed: Yes I reviewed the patient's radiology image ED XR Results: Abnormal (chest tube in place ) - ECG Data Tracing #1 Attestation EKG: I reviewed this ECG and interpreted as documented below: Ischemic changes: acute STEMI EKG compared to prior tracings: this ECG reveals significant changes Tracing #2 Arrhythmias present: sinus tach Ischemic changes: acute STEMI, ST elevation Rapid Response Exam - General General appearance: obtunded, obese - Head Head exam: normocephalic - Eye Eye exam: Present: PERRL, EOMI. Absent: scler
--- NOTE | 2020-11-03 07:26 | PC.NURSE ---
Current vent settings: AC mode, TV 440, R 25, PEEP 16, FiO2 100%.
--- NOTE | 2020-11-03 07:47 | CA_ITS ---
APPROVED REPORT EXAM: Limited 2D Echocardiogram Cambering Machine Operator: Rachel CombsJOHN Ht: 5 ft 6 in Wt: 226lbs BSA: 2.11 BP: 63/34 mmHg Indications: STEMI,COVID PNEUMONIA,INTUBATED,TENSION PNEUMO WITH CHEST TUBE,OBESITY TDS-PT FLAT ON BACK 2D Dimensions IVSd 1.24 cm F: 0.6-1.0 LVEF (Visual) 52.20 % PWd 1.33 cm F: 0.6 - 1.0 LVDd 4.34 cm F: 3.9 - 5.3 LVDs 3.19 cm F: 2.2 - 3.5 M-Mode Dimensions LA Diam 3.45 cm (1.9-4.0) Ao Diam 3.19 cm (2.0-3.7) TAPSE 1.27 (<1.7) Tricuspid Valve TR P. Velocity 286.00 cm/s RAP Estimate 10.00 mmHg RVSP 42.70 mmHg Left Ventricle Technically difficult study because of the patient factors and poor acoustic windows. Repeat study with Definity contrast is recommended. Left atrium is mildly enlarged, left ventricle is normal size, visually estimated ejection fraction is probably 50%, endocardial surfaces are very poorly visualized, there is no obvious regional wall motion abnormality in the obtained views. Diastolic parameters are inconclusive. Right Ventricle Right atrium and right ventricle mildly enlarged with normal contractility. Aortic Valve Aortic valve is thickened and calcified there is no aortic outflow Doppler performed. Mitral Valve Mitral valve leaflets are minimally thickened, there is no significant mitral regurgitation. Tricuspid Valve Tricuspid valve is poorly visualized, there is trace tricuspid regurgitation, tricuspid regurgitation jet velocity is inadequate for calculation of the right ventricular systolic pressure. Pulmonic Valve Pulmonic valve is poorly visualized. Great Vessels Aortic root is normal size. Pericardium No significant pericardial effusion noted. Conclusion 1. Technically difficult study as described above, repeat study with Definity contrast is recommended. 2. Probably preserved left ventricular systolic function, visually estimated ejection fraction 50% as described above. 3. No significant pericardial effusion noted. Electronically signed by : Bob Inman, 11/03/2020 14:11:01
--- NOTE | 2020-11-03 08:05 | HMH.ACPN2 ---
Internal Medicine - PN: Subj *Date: 11/03/20 *Time: 08:05 Interval history: Patient was successfully extubated yesterday afternoon but overnight patient's condition change. Patient developed acute elevation of her heart rate with drop in O2 sats. Rapid response was called. Patient was diagnosed with an acute HI and troponin of 8. Cardiology service was involved and patient was started on an esmolol drip to lower her heart rate. Patient was maxed out on BiPAP without improvement in O2 sats and subsequently required reintubation. Patient also developed pneumothorax that required placement of chest tube. At present patient is sedated and reintubated. Family is at bedside. Exam Vital signs and Labs for Last 24 Hours: Temp Pulse Resp BP Pulse Ox 99.4 F 119 H 39 H 89/62 L 81 L 11/03/20 03:00 11/03/20 06:51 11/03/20 06:51 11/03/20 06:51 11/03/20 06:51 Laboratory Results - last 24 hr 11/03/20 01:17: Specimen Source Right radial, O2 % 100, ABG pH 7.56 H*, ABG pCO2 25.9 L, ABG pO2 37.1 L, ABG HCO3 22.7, ABG Total CO2 23.5, ABG O2 Saturation 77 L*, ABG Base Excess 0.5, Connor Test Acceptable 11/03/20 01:20: Troponin I 8.37 H 11/03/20 01:20: WBC 16.8 H D, RBC 4.53, Hgb 14.0 D, Hct 42.8, MCV 94.4, MCH 30.8, MCHC 32.7, RDW 13.8, Plt Count 128 L, MPV 9.3, Neut % (Auto) 94.0 H, Lymph % (Auto) 3.5 L, [place] % (Auto) 2.0, Eos % (Auto) 0.4, Baso % (Auto) 0.1, Neut # (Auto) 15.8 H, Lymph # (Auto) 0.6 L, [place] # (Auto) 0.3, Eos # (Auto) 0.1, Baso # (Auto) 0.0, Total Counted 100, Neutrophils % (Manual) 93 H, Band Neutrophils % 1.0, Lymphocytes % (Manual) 4 L, Monocytes % (Manual) 2, Platelet Estimate Slight decrease, RBC Morphology Normal 11/03/20 01:20: Sodium 140, Potassium 4.0, Chloride 103, Carbon Dioxide 29, Anion Gap 12.0, BUN 35 H, Creatinine 0.70 D, Estimated Creat Clear 92, Estimated GFR 84, Est GFR ( Amer) 101 D, Glucose 145 H D, Calcium 9.0 11/03/20 01:50: POC Glucose 133 H 11/03/20 : Specimen Source Right radial, O2 % 100%, ABG pH 7.31 L, ABG pCO2 37.3, ABG pO2 57.3 L, ABG HCO3 18.3 L, ABG Total CO2 19.4 L, ABG O2 Saturation 86 L*, ABG Base Excess -8.0 L, Connor Test Acceptable, Vent Rate 25, Tidal Volume 440, PEEP 16 I & O for Last 24 hours: Intake & Output 10/31/20 11/01/20 11/02/20 11/03/20 11:59 11:59 11:59 11:59 Intake Total 3220.167 / 3292.167 1402.25 / 1402.25 1421.5 / 1421.5 Output Total 2817 / 3134 3274 / 3274 2495 / 2845 2389 / 2389 Balance 403.167 / 158.167 -1871.75 / -1871.75 -1073.5 / -1423.5 -2389 / -2389 Weight 243 lb 3.996 oz 234 lb 0.4 oz 233 lb 6 oz 226 lb 12.8 oz Narrative: Patient is heavily sedated. Mild increased work of breathing and increased respiratory rate. Breath sounds are symmetric except for the anterior lower left lung where breath sounds are diminished at this time. Heart is tachycardic. Abdomen is soft and obese. Lower extremities have trace edema Multiple chest x-rays performed which showed the pneumothorax and subsequent reexpansion of the lung with chest tube. Assessment and Plan (1) STEMI (ST elevation myocardial infarction) Status: Acute Qualifiers: Involved coronary artery: unspecified coronary artery Qualified Code(s): I21.3 - ST elevation (STEMI) myocardial infarction of unspecified site Category: Medical Code(s): I21.3 - ST elevation (STEMI) myocardial infarction of unspecified site (2) Respiratory failure with hypoxia Status: Acute Qualifiers: Chronicity: acute on chronic Qualified Code(s): J96.21 - Acute and chronic respiratory failure with hypoxia Category: Medical Code(s): J96.91 - Respiratory failure, unspecified with hypoxia (3) Tension pneumothorax Status: Acute Category: Medical Code(s): J93.0 - Spontaneous tension pneumothorax (4) Acute hypoxemic respiratory failure Status: Acute Category: Medical Code(s): J96.01 - Acute respiratory failure with hypoxia (5) COVID-19 virus infection Status: Acute Category
--- NOTE | 2020-11-03 08:09 | HMH.GSCON ---
*Admission Date: 10/22/20 *Reason for consult:: Chest tube management *History of present illness: This is a 65-year-old female who had a chest tube placed earlier this morning by Dr. Jones after developing significant left-sided pneumothorax status post intubation. The surgical service has been asked to assume management of the chest tube. Forwarded from pulmonology note: Ms. Foster is a 65-year-old female with a recent diagnosis of COVID-19 pneumonia on October 10, with symptoms fluctuating since then eventually got worse event where she presented to the hospital with hypoxic respiratory plan patient has been needing high flow nasal cannula to maintain her recent oxygen saturations and pulmonary was called for further management Review of Systems - Review of Systems Review of systems:: unable to obtain - *Neurologic Reports headache(s), Denies localized weakness, Denies seizure-like activity [facility] History Medical History: Reports:: Hyperlipidemia, Hypertension Denies:: Cancer, Diabetes Mellitus Type 1, Diabetes Mellitus Type 2, MRSA *Have you ever received a pneumonia vaccine?: No *Have you received a flu vaccine this season?: No Other Medical History: Reports: Hypothyroidism Laterality Cases: Bilateral: Arthroscopy Hip, Arthroscopy Knee Amputation: No - *Social History Last grade of school completed: Some college Smoking Status: Never smoker Alcohol Intake: current Alcohol Intake Frequency:: holidays/special occasions only *Occupational Status:: retired Household Members: spouse *Travel in the last 8 weeks: None Family Hx:: Cancer, Coronary Artery Disease, Diabetes, Hypertension, Stroke Meds Home Medications Medication Instructions Recorded Confirmed Type Levothyroxine Sodium 125 mcg PO DAILY 10/21/20 10/22/20 History [Levothyroxine 125mcg (0.125mg) Tab] Pravastatin Sodium 10 mg PO HS 10/21/20 10/22/20 History Allergies Allergy/AdvReac Type Severity Reaction Status Date / Time No Known Allergies Allergy Unverified 10/22/20 08:44 Exam Vital signs and Labs for Last 24 Hours: Temp Pulse Resp BP Pulse Ox 99.4 F 119 H 39 H 89/62 L 81 L 11/03/20 03:00 11/03/20 06:51 11/03/20 06:51 11/03/20 06:51 11/03/20 06:51 Laboratory Results - last 24 hr 11/03/20 01:17: Specimen Source Right radial, O2 % 100, ABG pH 7.56 H*, ABG pCO2 25.9 L, ABG pO2 37.1 L, ABG HCO3 22.7, ABG Total CO2 23.5, ABG O2 Saturation 77 L*, ABG Base Excess 0.5, Connor Test Acceptable 11/03/20 01:20: Troponin I 8.37 H 11/03/20 01:20: WBC 16.8 H D, RBC 4.53, Hgb 14.0 D, Hct 42.8, MCV 94.4, MCH 30.8, MCHC 32.7, RDW 13.8, Plt Count 128 L, MPV 9.3, Neut % (Auto) 94.0 H, Lymph % (Auto) 3.5 L, [place] % (Auto) 2.0, Eos % (Auto) 0.4, Baso % (Auto) 0.1, Neut # (Auto) 15.8 H, Lymph # (Auto) 0.6 L, [place] # (Auto) 0.3, Eos # (Auto) 0.1, Baso # (Auto) 0.0, Total Counted 100, Neutrophils % (Manual) 93 H, Band Neutrophils % 1.0, Lymphocytes % (Manual) 4 L, Monocytes % (Manual) 2, Platelet Estimate Slight decrease, RBC Morphology Normal 11/03/20 01:20: Sodium 140, Potassium 4.0, Chloride 103, Carbon Dioxide 29, Anion Gap 12.0, BUN 35 H, Creatinine 0.70 D, Estimated Creat Clear 92, Estimated GFR 84, Est GFR ( Amer) 101 D, Glucose 145 H D, Calcium 9.0 11/03/20 01:50: POC Glucose 133 H 11/03/20 : Specimen Source Right radial, O2 % 100%, ABG pH 7.31 L, ABG pCO2 37.3, ABG pO2 57.3 L, ABG HCO3 18.3 L, ABG Total CO2 19.4 L, ABG O2 Saturation 86 L*, ABG Base Excess -8.0 L, Connor Test Acceptable, Vent Rate 25, Tidal Volume 440, PEEP 16 I & O for Last 24 hours: Intake & Output 10/31/20 11/01/20 11/02/20 11/03/20 11:59 11:59 11:59 11:59 Intake Total 3220.167 / 3292.167 1402.25 / 1402.25 1421.5 / 1421.5 Output Total 2817 / 3134 3274 / 3274 2495 / 2845 2389 / 2389 Balance 403.167 / 158.167 -1871.75 / -1871.75 -1073.5 / -1423.5 -2389 / -2389 Weight 243 lb 3.996 oz 234 lb 0.4 oz 233 lb 6 oz 226 lb 12.8 oz - Constitutional Comments: Int
--- NOTE | 2020-11-03 08:28 | PC.NURSE ---
SBP 88. Levo gtt increased to 25mcg/min.
--- NOTE | 2020-11-03 08:34 | PC.NURSE ---
received call from radiologist reporting that pt has a small right apical pneumothorax. She would like to speak to pt's MD. Notified Dr. Castro.
--- NOTE | 2020-11-03 08:47 | PC.NURSE ---
SBP 84. Levo gtt increased to 30mcg/min
--- NOTE | 2020-11-03 09:13 | PC.NURSE ---
Spoke to Dr. Brown. Notified him of the the new small apical pneumo on the right. No new orders received. OG tube placed 59@ the lip.
--- NOTE | 2020-11-03 09:15 | XR_ITS ---
PROCEDURE: XR CHEST PORTABLE CLINICAL HISTORY: OG tube placement COMPARISON: CT CT ANGIO CHEST from 10/22/2020 CR XR CHEST PORTABLE from 11/03/2020 CR XR CHEST PORTABLE from 11/03/2020 CR XR CHEST PORTABLE from 11/03/2020 FINDINGS: There has been slight advancement of the endotracheal tube since the prior study. The tip is positioned less than 2 centimeters above the gage. There has been interval placement of an NG tube which courses through the midline below the diaphragm with the tip overlying the area of the stomach. Extensive bilateral opacities are redemonstrated. Left chest tube is unchanged. There is minimal residual left pneumothorax. The small apical pneumothorax which was visible on prior upright portable chest x-ray is not visible on this semi upright x-ray with overlapping skin fold, lines and tubes, and anatomic structures. IMPRESSION: 1. Nonvisualization of known tiny right pneumothorax on this semi upright x-ray. 2. Slight advancement of endotracheal tube now positioned less than 2 centimeters above the gage. 3. Well-positioned new NG tube. Dictated by: Whitney Lamb MD 11/03/2020 10:32 Whitney Lamb MD in [place] 11/03/2020 10:32
--- NOTE | 2020-11-03 10:14 | PC.NURSE ---
Received new orders from Dr. Negron: consult general sugery for insertion of central line and arterial line, give 1L LR bolus and if hypotension persists start Skinny gtt. Called oncall general surgery (Dr. Brown) and updated him. He will come to BS to insert central line and arterial line. Faxed orders for 1L LR bolus and Skinny gtt to pharmacy.
--- NOTE | 2020-11-03 12:27 | XR_ITS ---
PROCEDURE: XR CHEST PORTABLE CLINICAL HISTORY: deep line COMPARISON: CT CT ANGIO CHEST from 10/22/2020 CR XR CHEST PORTABLE from 11/03/2020 CR XR CHEST PORTABLE from 11/03/2020 CR XR CHEST PORTABLE from 11/03/2020 FINDINGS: There has been interval placement of left subclavian line which is well positioned in the upper thoracic superior vena cava. Prior left pneumothorax has resolved. Endotracheal tube tip is approximately 2.5 centimeters above the gage. Left chest tube remains in position. NG tube tip projects over the stomach. Extensive bilateral infiltrates are redemonstrated with areas of bibasilar consolidation. No definite pleural effusion. IMPRESSION: Well-positioned new left subclavian line. Endotracheal tube well positioned in the midthoracic trachea. No change in extensive bilateral infiltrates. Dictated by: Whitney Lamb MD 11/03/2020 12:56 Whitney Lamb MD in [place] 11/03/2020 12:56
--- NOTE | 2020-11-03 12:27 | HMH.PROC ---
[facility] Procedure Note Procedure Note:: Procedure: 1) 7 [place] triple-lumen central venous catheter (left subclavian vein access) 2) Radial arterial line (attempted but not completed...procedure completed by cardiology) Indications: Inadequate venous access; respiratory failure; need for frequent arterial blood gas Prep: Chlorhexidine Anesthesia: Propofol/fentanyl sedation ongoing Description: After informed consent was obtained the patient was maintained in a supine position. Her left chest and neck were prepped and draped in a sterile fashion. Utilizing a modified Seldinger technique a 7 [place] triple-lumen catheter was placed in position via left subclavian vein access. The catheter was secured at 17 cm. All ports flushed without difficulty. The white port did not draw . Sterile dressings were applied. Attention was then turned to placement of a radial arterial line. The left wrist was prepped and draped. Her pulse was palpable. Flash was encountered; however, the catheter did not thread. Multiple attempts were made without success and the decision was made to proceed with a right-sided attempt. The right radial pulse was severely diminished. No flash was noted on arterial line attempts. The decision was made to proceed with a femoral arterial line; however, the cardiology service (Dr. Ellis) was available and utilized access devices from the catheterization lab to place a left radial art line. Estimated blood loss: 5 mL Complications: No immediate. Chest x-ray pending. Arterial line completed by cardiology service.
--- NOTE | 2020-11-03 12:48 | PC.NURSE ---
pt now has a left SC TLDL and a left radial arterial line
--- NOTE | 2020-11-03 14:14 | PC.NURSE ---
Dr. Negron ordered the following r/t septic shock: 2 sets of blood cx, change out grijalva catheter and send urine cx, and a RASS of 0 to -1.
--- NOTE | 2020-11-03 14:29 | CA_ITS ---
APPROVED REPORT EXAM: Limited 2D Echocardiogram Shaper Set Up Operator: Melinda MEANS Ht: 5 ft 0 in Wt: 226lbs BSA: 1.97 BP: 74/50 mmHg Indications: DEFINITY STEMI,COVID PNEUMONIA,RESP FAILURE,PT ON VENT,CHEST TUBE-TENSION PNEUMO TDS-PT CONDITION,OBESITY,FLAT ON BACK Echo Enhancing Agent Indication: Endocardial border delineation Agent(s) / Amount(s) Used: Definity 2 cc Conclusion 1. Limited study was obtained with the Definity contrast study. Visually estimated ejection fraction 50% with no obvious regional wall motion abnormality. There is no left ventricular thrombus seen. Electronically signed by : Bob Inman, 11/03/2020 15:34:07
--- NOTE | 2020-11-03 14:46 | PC.NURSE ---
grijalva catheter changed and urine specimen sent for UA with cx.
--- NOTE | 2020-11-03 15:04 | PC.NURSE ---
SBP 78. Phenyl gtt started @ 40mcg/min.
--- NOTE | 2020-11-03 16:00 | XR_ITS ---
PROCEDURE: XR CHEST PORTABLE CLINICAL HISTORY: bilateral PTX COVID patient on ventilator, chest tube in place, PICC line inserted, very poor condition COMPARISON: CT CT ANGIO CHEST from 10/22/2020 CR XR CHEST PORTABLE from 11/03/2020 CR XR CHEST PORTABLE from 11/03/2020 CR XR CHEST PORTABLE from 11/03/2020 FINDINGS: Support tubes and lines are unchanged. Prior left pneumothorax has resolved. Reported right pneumothorax is not visible, perhaps resolved, perhaps layering adjacent to the right cardiac margin. Extensive bilateral infiltrates with areas of a consolidation not visibly changed. IMPRESSION: No change Dictated by: Whitney Lamb MD 11/03/2020 17:27 Whitney Lamb MD in [place] 11/03/2020 17:27
--- NOTE | 2020-11-03 16:05 | HMH.PULMPN ---
Internal Medicine - PN: Subj *Date: 11/03/20 *Time: 16:05 Interval history: Patient clinical status acutely declined overnight needing intubation, chest tube placement and pressor support for shock Exam - HENMT Exam HENMT: Present: atraumatic - Eye Exam Eyes:: Present: eyelids normal - Neck Exam Neck:: Present: thyroid normal - Respiratory Exam Respiratory:: Present: crackles - Cardiovascular Exam Cardiac:: Present: S1, S2 - GI Exam GI:: Present: soft, no hepatosplenomegaly - Skin Exam Skin: Present: warm, no rash - Neurological Exam Intubated and sedated, appears comfortable - Extremities Exam Extremities: Present: no cyanosis, no clubbing, no edema Assessment and Plan (1) STEMI (ST elevation myocardial infarction) Status: Acute Qualifiers: Involved coronary artery: unspecified coronary artery Qualified Code(s): I21.3 - ST elevation (STEMI) myocardial infarction of unspecified site Category: Medical Code(s): I21.3 - ST elevation (STEMI) myocardial infarction of unspecified site (2) Respiratory failure with hypoxia Status: Acute Qualifiers: Chronicity: acute on chronic Qualified Code(s): J96.21 - Acute and chronic respiratory failure with hypoxia Category: Medical Code(s): J96.91 - Respiratory failure, unspecified with hypoxia (3) Tension pneumothorax Status: Acute Category: Medical Code(s): J93.0 - Spontaneous tension pneumothorax (4) Acute hypoxemic respiratory failure Status: Acute Category: Medical Code(s): J96.01 - Acute respiratory failure with hypoxia (5) COVID-19 virus infection Status: Acute Category: Medical Code(s): U07.1 - COVID-19 (6) Obesity (BMI 30-39.9) Status: Acute Category: Medical Code(s): E66.9 - Obesity, unspecified (7) Obesity Status: Chronic Qualifiers: Obesity type: due to excess calories Obesity classification: adult class 1 (BMI 30 - 34.9) Body mass index: BMI 30.0-30.9 Category: Medical Code(s): E66.9 - Obesity, unspecified - Assessment and plan all Dx Assessment and Plan for all problems:: #Acute hypoxic respiratory failure: #COVID-19 pneumonia: #Pneumonia: #Shock: 65-year-old no prior respiratory complaints recent diagnosis of COVID-19 pneumonia with worsening symptoms presented to the hospital needing high flow nasal cannula to maintain oxygen saturations. CT on admission showed bilateral diffuse groundglass opacities and also showed questionable subacute to chronic pulmonary embolism. Creatinine stable on admission. Patient was initiated on vancomycin cefepime and azithromycin along with remdesivir and dexamethasone on admission. Patient respiratory status continued to be critical since admission needing 40 L 100% Vapotherm and has been gradually declining with frequent episodes of desaturations eventually this morning needing a combination of high flow nasal cannula and nonrebreather to maintain her saturations barely at 86%. ABG continued to show hypoxic respiratory failure and on examination patient today appeared to be in moderate respiratory distress worsened from yesterday. After discussions with the patient patient was made to intubate and mechanically ventilated the patient, patient respiratory status gradually improved and was eventually extubated on 11/02/2020 to [facility]. However patient clinical status acutely worsened overnight needing intubation and mechanical ventilation, chest tube placement presented thorax with resolution after chest tube placement and pressor requirement for new onset shock Plan: Patient respiratory status acutely declined overnight needing intubation and mechanical ventilation. Patient currently 14 of PEEP 100% FiO2. Patient also had a massive left-sided pneumothorax status post chest tube placement resolution. Tiny right pneumothorax noted. Chest x-ray relatively unchanged from prior. It is unclear regarding etiology of this patient's new onset respiratory fa
--- NOTE | 2020-11-03 16:16 | PC.NURSE ---
SBP 116. Phenyl gtt decreased to 30mcg/min.
--- NOTE | 2020-11-03 16:25 | HMH.PHACONS ---
- Pharmacy Consult Date: 11/03/20 Time: 16:25 Referring provider: DR. BOOGIE Reason for Consult:: VANCOMYCIN DOSING Allergies and ADEs:: Allergies Allergy/AdvReac Type Severity Reaction Status Date / Time No Known Allergies Allergy Unverified 10/22/20 08:44 Home Medications:: Home Medications Medication Instructions Recorded Confirmed Type Levothyroxine Sodium 125 mcg PO DAILY 10/21/20 10/22/20 History [Levothyroxine 125mcg (0.125mg) Tab] Pravastatin Sodium 10 mg PO HS 10/21/20 10/22/20 History Height: 1.68 m Weight: 102.875 kg Laboratory Results:: Laboratory Results - last 24 hr 11/03/20 01:17: Specimen Source Right radial, O2 % 100, ABG pH 7.56 H*, ABG pCO2 25.9 L, ABG pO2 37.1 L, ABG HCO3 22.7, ABG Total CO2 23.5, ABG O2 Saturation 77 L*, ABG Base Excess 0.5, Connor Test Acceptable 11/03/20 01:20: Troponin I 8.37 H 11/03/20 01:20: WBC 16.8 H D, RBC 4.53, Hgb 14.0 D, Hct 42.8, MCV 94.4, MCH 30.8, MCHC 32.7, RDW 13.8, Plt Count 128 L, MPV 9.3, Neut % (Auto) 94.0 H, Lymph % (Auto) 3.5 L, [place] % (Auto) 2.0, Eos % (Auto) 0.4, Baso % (Auto) 0.1, Neut # (Auto) 15.8 H, Lymph # (Auto) 0.6 L, [place] # (Auto) 0.3, Eos # (Auto) 0.1, Baso # (Auto) 0.0, Total Counted 100, Neutrophils % (Manual) 93 H, Band Neutrophils % 1.0, Lymphocytes % (Manual) 4 L, Monocytes % (Manual) 2, Platelet Estimate Slight decrease, RBC Morphology Normal 11/03/20 01:20: Sodium 140, Potassium 4.0, Chloride 103, Carbon Dioxide 29, Anion Gap 12.0, BUN 35 H, Creatinine 0.70 D, Estimated Creat Clear 92, Estimated GFR 84, Est GFR ( Amer) 101 D, Glucose 145 H D, Calcium 9.0 11/03/20 01:50: POC Glucose 133 H 11/03/20 : Specimen Source Right radial, O2 % 100%, ABG pH 7.31 L, ABG pCO2 37.3, ABG pO2 57.3 L, ABG HCO3 18.3 L, ABG Total CO2 19.4 L, ABG O2 Saturation 86 L*, ABG Base Excess -8.0 L, Connor Test Acceptable, Vent Rate 25, Tidal Volume 440, PEEP 16 Medical History: Reports:: Hyperlipidemia, Hypertension Denies:: Cancer, Diabetes Mellitus Type 1, Diabetes Mellitus Type 2, MRSA Assessment and Plan (1) STEMI (ST elevation myocardial infarction) Status: Acute Qualifiers: Involved coronary artery: unspecified coronary artery Qualified Code(s): I21.3 - ST elevation (STEMI) myocardial infarction of unspecified site Category: Medical Code(s): I21.3 - ST elevation (STEMI) myocardial infarction of unspecified site (2) Respiratory failure with hypoxia Status: Acute Qualifiers: Chronicity: acute on chronic Qualified Code(s): J96.21 - Acute and chronic respiratory failure with hypoxia Category: Medical Code(s): J96.91 - Respiratory failure, unspecified with hypoxia (3) Tension pneumothorax Status: Acute Category: Medical Code(s): J93.0 - Spontaneous tension pneumothorax (4) Acute hypoxemic respiratory failure Status: Acute Category: Medical Code(s): J96.01 - Acute respiratory failure with hypoxia (5) COVID-19 virus infection Status: Acute Category: Medical Code(s): U07.1 - COVID-19 (6) Obesity (BMI 30-39.9) Status: Acute Category: Medical Code(s): E66.9 - Obesity, unspecified (7) Obesity Status: Chronic Qualifiers: Obesity type: due to excess calories Obesity classification: adult class 1 (BMI 30 - 34.9) Body mass index: BMI 30.0-30.9 Category: Medical Code(s): E66.9 - Obesity, unspecified - Assessment and plan all Dx Assessment and Plan for all problems:: BASED ON PATIENT FACTORS, RECOMMEND RESTARTING VANCOMYCIN IV AT 1,500MG EVERY 18 HOURS. PHARMACY WILL MONITOR AND ADJUST DOSE APPROPRIATE. -ADAN DAVIDSON PHARMD
[2020-11-03 16:36] LABS: ABG Base Excess -3.1 mmol/L (-2.4-2.3); ABG HCO3 22.1 mmhg (22.0-26.0); ABG Oxygen Saturation 97 % (90-100); ABG PCO2 38.6 mmhg (35.0-45.0); ABG PH 7.38 mmol/L (7.35-7.45); ABG PO2 95.9 mmhg (80-100); ABG TCO2 23.3 mmhg (23-27); Allen's Test Non Applicable; Oxygen 95 %; PEEP 14; Tidal Volume 440; Vent Rate 25
[2020-11-03 16:37] LABS: Lactate Arterial 2.3 mmol/L (0.4-2.0); Source A LINE
[2020-11-03 16:52] LABS: Lipase 145 U/L (23-300)
--- NOTE | 2020-11-03 17:07 | PC.NURSE ---
SBP 128. Phenyl gtt turned OFF. Received call from Dr. Negron. He ordered to draw a PTT now and start a Heparin gtt and then to redraw PTT in 1hr, RT to do a tracheal aspirate, wean PEEP to 12, keep FiO2 @ 95% , and give 1L LR bolus now. LR bolus order faxed to [facility]. Updated RT (Shama).
[2020-11-03 17:13] LABS: Activated Partial Thrombo Time 43.3 seconds (23.6-34.0)
--- NOTE | 2020-11-03 17:35 | PC.NURSE ---
SBP 118. Levo gtt decreased to 25mcg/min. Phenyl gtt continues to be OFF.
--- NOTE | 2020-11-03 18:14 | PC.NURSE ---
SBP 126. Levo gtt decreased to 20mcg/min.
--- NOTE | 2020-11-03 18:21 | PC.NURSE ---
Dr. Castro ordered a BMP. Order entered on his behalf.
[2020-11-03 18:48] LABS: Chloride 103 mmol/L (98-107); Potassium 4.1 mmoL/L (3.5-5.1); Sodium 136 mmol/L (136-145)
--- NOTE | 2020-11-03 18:48 | PC.NURSE ---
SBP 115. Levo gtt decreased to 15mcg/min.
[2020-11-03 18:51] LABS: Blood Urea Nitrogen 58 mg/dl (7-17); Creatinine Clearance Estimated 41 mL/min (50-200); Estimated Glomerular Filt Rate 22 ml/min (>60); GFR (African American) 27 ML/MIN (>60)
[2020-11-03 18:52] LABS: Anion Gap 12.1 mEq/L (5-15); Carbon Dioxide 25 mmol/L (22.0-30.0); Glucose 179 mg/dl (74-100)
[2020-11-03 20:48] LABS: Calcium 7.7 mg/dl (8.4-10.2)
[2020-11-03 20:55] LABS: Activated Partial Thrombo Time 58.1 seconds (23.6-34.0)
[2020-11-04] VITALS (35 sets, daily range): BP systolic 97–122; BP diastolic 54–66; PULSE 59–76; RESP 24–30; TEMP 36.1–37.1; O2SAT 96–98; BMI 37.9
[2020-11-04 02:28] LABS: Activated Partial Thrombo Time 116.3 seconds (23.6-34.0)
[2020-11-04 05:38] LABS: Chloride 102 mmol/L (98-107); Potassium 4.3 mmoL/L (3.5-5.1); Sodium 133 mmol/L (136-145)
[2020-11-04 05:41] LABS: Anion Gap 14.3 mEq/L (5-15); Blood Urea Nitrogen 69 mg/dl (7-17); Calcium 7.4 mg/dl (8.4-10.2); Carbon Dioxide 21 mmol/L (22.0-30.0); Creatinine Clearance Estimated 33 mL/min (50-200); Estimated Glomerular Filt Rate 17 ml/min (>60); GFR (African American) 20 ML/MIN (>60); Glucose 135 mg/dl (74-100)
[2020-11-04 05:43] LABS: Basophils % 0.1 % (0.1-2.0); Eosinophils % 0.1 % (0.1-12.0); Hematocrit 31.7 % (37.0-47.0); Hemoglobin 10.6 g/dL (12.2-16.2); Lymphocytes # 0.8 K/mm3 (0.7-4.5); Lymphocytes % 5.4 % (10-50); Mean Corpuscular HGB Conc 33.3 g/dL (31.8-35.4); Mean Corpuscular Hemoglobin 31.1 pg (27.0-31.2); Mean Corpuscular Volume 93.3 fl (81-99); Mean Platelet Volume 9.2 fl (7.4-10.4); Monocytes # 0.2 K/mm3 (0.1-1.0); Monocytes % 1.5 % (1.7-9.3); Neutrophils # 14.1 K/mm3 (1.8-7.8); Neutrophils % 92.9 % (37.0-80.0); Platelet Count 95 K/mm3 (142-424); Red Blood Count 3.39 M/mm3 (4.20-5.40); Red Cell Distribution Width 13.6 % (11.5-17.5); White Blood Count 15.2 K/mm3 (4.8-10.8)
--- NOTE | 2020-11-04 06:00 | XR_ITS ---
PROCEDURE: XR CHEST PORTABLE CLINICAL HISTORY: PTX; respiratory failure COMPARISON: CT CT ANGIO CHEST from 10/22/2020 CR XR CHEST PORTABLE from 11/03/2020 CR XR CHEST PORTABLE from 11/03/2020 CR XR CHEST PORTABLE from 11/03/2020 FINDINGS: Life support tubes and lines are well positioned at unchanged. There has been interval worsening of left basilar infiltrate and consolidation compared with 11/03/2019 at 4 o'clock p.m.. Extensive infiltrates throughout the remaining lung ku are unchanged. There is no right or left pneumothorax. IMPRESSION: Worsening appearance of the lungs. Dictated by: Whitney Lamb MD 11/04/2020 07:38 Whitney Lamb MD in [place] 11/04/2020 07:38
[2020-11-04 06:02] LABS: MANUAL DIFFERENTIAL MANUAL DIFFERENTIAL (MANUAL DIFF)
--- NOTE | 2020-11-04 06:12 | PC.NURSE ---
shift summary 2100 levo decreased to 14 mcq 2130 levo decreased to 12 mcq and diprivan decreased to 40 mcq 2230 levo decreased to 10 mcq and diprivan decreased to 30 mcq 0000 levo decreased to 8 mcq and fentanyl decreased to 190 mcq 0100 fentanyl decreased to 180 mcq 0200 levo decreased to 6 mcq and fentanyl decreased to 170 mcq 0330 blood pressure dropped during linen change levo increased back up to 8 mcq. 0530 fentanyl decreased down to 150 mcq after am cxr performed. patient tolerates movement with slight coughing with activity. ptt drawn at 0330 from arterial line and sent to lab for analysis, rn was notified that machine is unable to analyse blood and a redraw was needed. addition ptt drawn from arterial line and sent to lab. both times 10 ml waste was obtained prior to collecting specimen. lab currently recalibrating machine due to inability to obtain results from second sample as well.
--- NOTE | 2020-11-04 06:34 | PC.NURSE ---
peripheral venous stick obtained from right ac due to inability to perform ptt on previous two blood specimens.
--- NOTE | 2020-11-04 06:49 | HMH.ACPN2 ---
Internal Medicine - PN: Subj *Date: 11/04/20 *Time: 06:49 Interval history: Patient had no events overnight. She remains sedated and on the ventilator. FiO2 has been decreased to 90% this morning after blood gas was drawn. Urine output has decreased since the events of the previous night Limited view echocardiogram yesterday showed ejection fraction of 50%. Exam Vital signs and Labs for Last 24 Hours: Temp Pulse Resp BP Pulse Ox 97.9 F 61 24 111/64 97 11/04/20 05:59 11/04/20 05:59 11/04/20 05:59 11/04/20 05:59 11/04/20 05:59 Laboratory Results - last 24 hr 11/03/20 16:30: Lipase 145 11/03/20 16:40: APTT 43.3 H 11/03/20 18:30: Sodium 136, Potassium 4.1, Chloride 103, Carbon Dioxide 25, Anion Gap 12.1, BUN 58 H D, Creatinine 2.20 H D, Estimated Creat Clear 41, Estimated GFR 22 L, Est GFR ( Amer) 27 L D, Glucose 179 H D, Calcium 7.7 L D 11/03/20 18:30: APTT 58.1 H* D 11/03/20 : Specimen Source A line, O2 % 95, ABG pH 7.38, ABG pCO2 38.6, ABG pO2 95.9, ABG HCO3 22.1, ABG Total CO2 23.3, ABG O2 Saturation 97, ABG Base Excess -3.1 L, Connor Test Non applicable, ABG Lactate 2.3 H, Vent Rate 25, Tidal Volume 440, PEEP 14 11/04/20 01:00: APTT 116.3 H* D 11/04/20 05:00: WBC 15.2 H, RBC 3.39 L D, Hgb 10.6 L, Hct 31.7 L, MCV 93.3, MCH 31.1, MCHC 33.3, RDW 13.6, Plt Count 95 L D, MPV 9.2, Neut % (Auto) 92.9 H, Lymph % (Auto) 5.4 L, Whiteside % (Auto) 1.5 L, Eos % (Auto) 0.1, Baso % (Auto) 0.1, Neut # (Auto) 14.1 H, Lymph # (Auto) 0.8, Whiteside # (Auto) 0.2, Eos # (Auto) 0.0, Baso # (Auto) 0.0 11/04/20 05:00: Sodium 133 L, Potassium 4.3, Chloride 102, Carbon Dioxide 21 L, Anion Gap 14.3, BUN 69 H, Creatinine 2.80 H D, Estimated Creat Clear 33, Estimated GFR 17 L*, Est GFR ( Amer) 20 L D, Glucose 135 H D, Calcium 7.4 L I & O for Last 24 hours: Intake & Output 11/01/20 11/02/20 11/03/20 11/04/20 11:59 11:59 11:59 11:59 Intake Total 1402.25 / 1402.25 1421.5 / 1421.5 5584.783 / 5584.783 Output Total 3274 / 3274 2495 / 2845 3039 / 3039 161 / 161 Balance -1871.75 / -1871.75 -1073.5 / -1423.5 -3039 / -3039 5423.783 / 5423.783 Weight 234 lb 0.4 oz 233 lb 6 oz 226 lb 12.8 oz 236 lb 2 oz Microbiology Reports for the Last 24 Hours: Microbiology 11/03/20 18:23 Lung,Right Lower Lobe Gram Stain - Final 11/03/20 04:30 Sputum - Endotracheal Tube Aspirate Gram Stain - Final Narrative: Patient is sedated. She appears comfortable with no increased work of breathing. Lungs have some right-sided rhonchi best heard anteriorly and laterally. Heart has a regular rate and rhythm. Abdomen is obese and soft. Patient has trace to 1+ edema of the shins. Chest x-ray continues to show bilateral infiltrates. Chest tube is in place. I do not see evidence of pneumothorax on the left or the right on my review. Patient appears to have a small right pleural effusion Assessment and Plan (1) Sepsis Status: Acute Qualifiers: Sepsis type: sepsis due to unspecified organism Sepsis acute organ dysfunction status: with acute organ dysfunction Severe sepsis acute organ dysfunction type: acute respiratory failure Acute respiratory failure type: with hypoxia Severe sepsis shock status: with septic shock Qualified Code(s): A41.9 - Sepsis, unspecified organism; R65.21 - Severe sepsis with septic shock; J96.01 - Acute respiratory failure with hypoxia Category: Medical Code(s): A41.9 - Sepsis, unspecified organism (2) STEMI (ST elevation myocardial infarction) Status: Acute Qualifiers: Involved coronary artery: unspecified coronary artery Qualified Code(s): I21.3 - ST elevation (STEMI) myocardial infarction of unspecified site Category: Medical Code(s): I21.3 - ST elevation (STEMI) myocardial infarction of unspecified site (3) Respiratory failure with hypoxia Status: Acute Qualifiers: Chronicity: acute on chronic Qualified Code(s): J96.21 - Acute and chronic respiratory failure with hypoxi
[2020-11-04 07:18] LABS: ABG Oxygen Saturation 98 % (90-100); ABG PCO2 33.9 mmhg (35.0-45.0); ABG PH 7.39 mmol/L (7.35-7.45); ABG PO2 126.4 mmhg (80-100)
[2020-11-04 07:22] LABS: Oxygen 95 %; PEEP 12; Source A LINE; Tidal Volume 440; Vent Rate 24
--- NOTE | 2020-11-04 07:38 | PC.NURSE ---
received call from Adrián Knight asking for PTT results. Lab results are not back yet so he ordered to decrease Heparin gtt to 1300 units/hr. Contacted lab (Ana Lilia), who reports that all 3 PTT tubes are on the analyzer and are reading . She will call as soon as results are back.
[2020-11-04 07:39] LABS: Lymphocytes % 7 % (10-50); Monocytes % 2 % (2-9); Neutrophils % 91 % (42-76); Platelet Estimate Slight Decrease; RBC Morphology Normal; Total Cells Counted 100
--- NOTE | 2020-11-04 07:44 | PC.NURSE ---
BP 113/61. Levo gtt decreased to 5mcg/min, Fentanyl gtt decreased to 100mcg/hr, and Heparin gtt decreased to 1300 units/hr.
--- NOTE | 2020-11-04 08:00 | PC.NURSE ---
gastric residual 0mL. Tubefeed rate continues @ 20mL/hr.
--- NOTE | 2020-11-04 08:21 | PC.NURSE ---
received call from Ana Lilia in lab that PTT is >275. Contacted Adrián Knight, who orders to STOP Heparin gtt and redraw PTT in 1hr.
--- NOTE | 2020-11-04 09:09 | HMH.PULMPN ---
Internal Medicine - PN: Subj *Date: 11/04/20 *Time: 10:42 Interval history: No acute respiratory events overnight. Exam - Constitutional Constitutional:: Present: comfortable - HENMT Exam HENMT: Present: atraumatic - Eye Exam Eyes:: Present: eyelids normal - Neck Exam Neck:: Present: thyroid normal, no lymphadenopathy - Respiratory Exam Respiratory:: Present: crackles - Cardiovascular Exam Cardiac:: Present: S1, S2 - GI Exam GI:: Present: soft - Skin Exam Skin: Present: warm - Neurological Exam Intubated and sedated. - Extremities Exam Extremities: Present: no cyanosis, no clubbing, edema Assessment and Plan (1) Sepsis Status: Acute Qualifiers: Sepsis type: sepsis due to unspecified organism Sepsis acute organ dysfunction status: with acute organ dysfunction Severe sepsis acute organ dysfunction type: acute respiratory failure Acute respiratory failure type: with hypoxia Severe sepsis shock status: with septic shock Qualified Code(s): A41.9 - Sepsis, unspecified organism; R65.21 - Severe sepsis with septic shock; J96.01 - Acute respiratory failure with hypoxia Category: Medical Code(s): A41.9 - Sepsis, unspecified organism (2) STEMI (ST elevation myocardial infarction) Status: Acute Qualifiers: Involved coronary artery: unspecified coronary artery Qualified Code(s): I21.3 - ST elevation (STEMI) myocardial infarction of unspecified site Category: Medical Code(s): I21.3 - ST elevation (STEMI) myocardial infarction of unspecified site (3) Respiratory failure with hypoxia Status: Acute Qualifiers: Chronicity: acute on chronic Qualified Code(s): J96.21 - Acute and chronic respiratory failure with hypoxia Category: Medical Code(s): J96.91 - Respiratory failure, unspecified with hypoxia (4) Tension pneumothorax Status: Acute Category: Medical Code(s): J93.0 - Spontaneous tension pneumothorax (5) Acute hypoxemic respiratory failure Status: Acute Category: Medical Code(s): J96.01 - Acute respiratory failure with hypoxia (6) COVID-19 virus infection Status: Acute Category: Medical Code(s): U07.1 - COVID-19 (7) Obesity (BMI 30-39.9) Status: Acute Category: Medical Code(s): E66.9 - Obesity, unspecified (8) Obesity Status: Chronic Qualifiers: Obesity type: due to excess calories Obesity classification: adult class 1 (BMI 30 - 34.9) Body mass index: BMI 30.0-30.9 Category: Medical Code(s): E66.9 - Obesity, unspecified (9) Acute kidney injury Status: Acute Category: Medical Code(s): N17.9 - Acute kidney failure, unspecified - Assessment and plan all Dx Assessment and Plan for all problems:: #Acute hypoxic respiratory failure: #COVID-19 pneumonia: #Pneumonia: #Shock: 65-year-old no prior respiratory complaints recent diagnosis of COVID-19 pneumonia with worsening symptoms presented to the hospital needing high flow nasal cannula to maintain oxygen saturations. CT on admission showed bilateral diffuse groundglass opacities and also showed questionable subacute to chronic pulmonary embolism. Creatinine stable on admission. Patient was initiated on vancomycin cefepime and azithromycin along with remdesivir and dexamethasone on admission. Patient respiratory status continued to be critical since admission needing 40 L 100% Vapotherm and has been gradually declining with frequent episodes of desaturations eventually this morning needing a combination of high flow nasal cannula and nonrebreather to maintain her saturations barely at 86%. ABG continued to show hypoxic respiratory failure and on examination patient today appeared to be in moderate respiratory distress worsened from yesterday. After discussions with the patient patient was made to intubate and mechanically ventilated the patient, patient respiratory status gradually improved and was eventually extubated on 11/02/2020 to BiP. However patient clin
[2020-11-04 09:29] LABS: Activated Partial Thrombo Time 126.1 seconds (23.6-34.0)
--- NOTE | 2020-11-04 09:45 | PC.NURSE ---
Heparin gtt restarted @ 1000 units/hr per Adrián Knight. Tubefeeds restarted @ 20mL/hr.
--- NOTE | 2020-11-04 10:42 | HMH.PHAHEP ---
[facility] Pharmacy Heparin Dosing - Demographic Data Admission date:: 10/22/20 Date: 11/03/20 Time: 16:30 Allergies/Adverse Reactions: Allergies Allergy/AdvReac Type Severity Reaction Status Date / Time No Known Allergies Allergy Unverified 10/22/20 08:44 Height: 1.68 m Weight: 107.1 kg - Indication Medication therapy:: Heparin Patient Problems: Current Active Problems Pneumonia due to COVID-19 virus (Acute) Respiratory failure with hypoxia (Acute) Obesity (BMI 30-39.9) (Acute) Hypothyroidism (Acute) Acute hypoxemic respiratory failure (Acute) Viral pneumonia (Acute) COVID-19 virus infection (Acute) Elevated troponin (Acute) Hypothyroidism (acquired) (Acute) Hyperlipidemia (Acute) Obesity (Chronic) Hypokalemia (Acute) Tension pneumothorax (Acute) Acute kidney injury (Acute) Sepsis with acute liver failure and septic shock (Acute) Metabolic acidosis (Acute) STEMI (ST elevation myocardial infarction) (Acute) Pulmonary embolism (Acute) Deep venous thrombosis (DVT) of left peroneal vein (Acute) CVA?: No Bleeding problem?: No Kidney disease?: No GA?: No Desired PTT range:: 50-70 seconds - Labs Anticoagulation Lab Results:: 11/04/20 05:00 Hgb 10.6 L Hct 31.7 L Plt Count 95 L D - Monitoring Dose Monitor 1 Date: 11/03/20 Time: 16:40 PTT Result:: PTT 43.3 Infusion Rate:: HEPARIN 1850 UNITS/HR (37 ML/HR), DR. BOOGIE DOES NOT WANT A BOLUS. PATIENT RECEIVED LOVENOX 100 MG THIS AM AT 0900. PLT 128K Dose Monitor 2 Date: 11/03/20 Time: 18:30 PTT Result:: PTT 58.1 Infusion Rate:: CONTINUE WITH HEPARIN 1850 UNITS/HR (37 ML/HR). Dose Monitor 3 Date: 11/04/20 Time: 01:00 PTT Result:: PTT 116.3 Infusion Rate:: PTT DRAWN LATER THAN ORDERED. PATIENT HAS BEEN ON HEPARIN DRIP SINCE 1700 11/03/20. REDUCE HEPARIN DRIP TO 1600 UNITS/HR (32 ML/HR). RECHECK IN 1 HOUR. Dose Monitor 4 Date: 11/04/20 Time: 03:35 PTT Result:: PTT >275 Infusion Rate:: CALLED TO CHECK ON THE SAMPLE AT 0600. LAB SAMPLE WOULD NOT RESULT OUT. RERAN ON BACK UP MACHINE WITH SAME RESULT. HAD LAB DRAW FROM VENOUS FLOW INSTEAD OF CENTRAL LINE. ALSO >>275. AT 0735 HAD NURSE HOLD DOSE X1 HOUR, AND RECHECK PTT. Dose Monitor 5 Date: 11/04/20 Time: 09:06 PTT Result:: PTT 126.1 Infusion Rate:: AT THIS POINT RESTARTING HEPARIN DRIP AT 1000 UNITS/HR (20 ML/HR) PATIENT HAS BEEN THERAPEUTIC OR SUPRATHERAPEUTIC >12 HRS. WILL RECHECK AT 1100 WITH THE REDUCED DOSE. Dose Monitor 6 Date: 11/04/20 Time: 11:00 PTT Result:: PTT>>275 Infusion Rate:: LIVER ENZYMES ELEVATED FROM BASELINE SIGNIFICANTLY. PATIENT APPEARS TO NOT BE CLEARING HEPARIN. MD STOPPING HEPARIN AT THIS TIME AND WANTS TO RESTART LOVENOX TREATMENT DOSE ONCE PTT IS THERAPEUTIC. Dose Monitor 7 Date: 11/04/20 Time: 14:30 PTT Result:: PTT 117 Infusion Rate:: CONTINUE TO HOLD. Dose Monitor 8 Date: 11/04/20 Time: 19:00 PTT Result:: PTT 60.1 Infusion Rate:: WILL RESTART LOVENOX 105 MG HS. DOSE ADJUSTED DUE TO RENAL FUNCTION. - Core Measures Is INR > or = 2 at discharge?: No Most Recent Labs:: Laboratory Results - last 24 hr 11/03/20 16:30: Lipase 145 11/03/20 16:40: APTT 43.3 H 11/03/20 18:30: Sodium 136, Potassium 4.1, Chloride 103, Carbon Dioxide 25, Anion Gap 12.1, BUN 58 H D, Creatinine 2.20 H D, Estimated Creat Clear 41, Estimated GFR 22 L, Est GFR ( Amer) 27 L D, Glucose 179 H D, Calcium 7.7 L D 11/03/20 18:30: APTT 58.1 H* D 11/03/20 : Specimen Source A line, O2 % 95, ABG pH 7.38, ABG pCO2 38.6, ABG pO2 95.9, ABG HCO3 22.1, ABG Total CO2 23.3, ABG O2 Saturation 97, ABG Base Excess -3.1 L, Connor Test Non applicable, ABG Lactate 2.3 H, Vent Rate 25, Tidal Volume 440, PEEP 14 02/19/21 01:00: APTT 116.3 H* D 11/04/20 03:35: APTT 275.0 H* D 11/04/20 05:00: WBC 15.2 H, RBC 3.39 L D, Hgb 10.6 L, Hct 31.7 L, MCV 93.3, MCH 31.1, MCHC 33.3, RDW 13.6, Plt Count 95 L D, MPV
--- NOTE | 2020-11-04 10:57 | HMH.GSPN ---
Subjective Narrative: Per nursing, the patient's air leak fluctuates occasionally but has been somewhat persistent since chest tube placement. Progress Note: A&P (1) Sepsis Status: Acute (2) STEMI (ST elevation myocardial infarction) Status: Acute (3) Respiratory failure with hypoxia Status: Acute (4) Tension pneumothorax Status: Acute Assessment and plan: No persistent pneumothorax, although she does have persistent air leak. Continue to suction. May need to increase suction if airleak persists; however, there is a slight increased chance of trauma/worsening leak with higher suction pressure. (5) Acute hypoxemic respiratory failure Status: Acute (6) COVID-19 virus infection Status: Acute (7) Obesity (BMI 30-39.9) Status: Acute (8) Obesity Status: Chronic (9) Acute kidney injury Status: Acute Exam Vital signs and Labs for Last 24 Hours: Temp Pulse Resp BP Pulse Ox 97.6 F 61 24 105/56 L 97 11/04/20 10:00 11/04/20 10:00 11/04/20 10:41 11/04/20 10:00 11/04/20 10:41 Laboratory Results - last 24 hr 11/03/20 16:30: Lipase 145 11/03/20 16:40: APTT 43.3 H 11/03/20 18:30: Sodium 136, Potassium 4.1, Chloride 103, Carbon Dioxide 25, Anion Gap 12.1, BUN 58 H D, Creatinine 2.20 H D, Estimated Creat Clear 41, Estimated GFR 22 L, Est GFR ( Amer) 27 L D, Glucose 179 H D, Calcium 7.7 L D 11/03/20 18:30: APTT 58.1 H* D 11/03/20 : Specimen Source A line, O2 % 95, ABG pH 7.38, ABG pCO2 38.6, ABG pO2 95.9, ABG HCO3 22.1, ABG Total CO2 23.3, ABG O2 Saturation 97, ABG Base Excess -3.1 L, Connor Test Non applicable, ABG Lactate 2.3 H, Vent Rate 25, Tidal Volume 440, PEEP 14 11/04/20 01:00: APTT 116.3 H* D 11/04/20 03:35: APTT 275.0 H* D 11/04/20 05:00: WBC 15.2 H, RBC 3.39 L D, Hgb 10.6 L, Hct 31.7 L, MCV 93.3, MCH 31.1, MCHC 33.3, RDW 13.6, Plt Count 95 L D, MPV 9.2, Neut % (Auto) 92.9 H, Lymph % (Auto) 5.4 L, Emmons % (Auto) 1.5 L, Eos % (Auto) 0.1, Baso % (Auto) 0.1, Neut # (Auto) 14.1 H, Lymph # (Auto) 0.8, Emmons # (Auto) 0.2, Eos # (Auto) 0.0, Baso # (Auto) 0.0, Total Counted 100, Neutrophils % (Manual) 91 H, Lymphocytes % (Manual) 7 L, Monocytes % (Manual) 2, Platelet Estimate Slight decrease, RBC Morphology Normal 11/04/20 05:00: Sodium 133 L, Potassium 4.3, Chloride 102, Carbon Dioxide 21 L, Anion Gap 14.3, BUN 69 H, Creatinine 2.80 H D, Estimated Creat Clear 33, Estimated GFR 17 L*, Est GFR ( Amer) 20 L D, Glucose 135 H D, Calcium 7.4 L 11/04/20 07:00: Specimen Source A line, O2 % 95, ABG pH 7.39, ABG pCO2 33.9 L, ABG pO2 126.4 H, ABG HCO3 20.0 L, ABG Total CO2 21.0 L, ABG O2 Saturation 98, ABG Base Excess -5.0 L, Vent Rate 24, Tidal Volume 440, PEEP 12 11/04/20 09:00: APTT 126.1 H* D I & O for Last 24 hours: Intake & Output 11/01/20 11/02/20 11/03/20 11/04/20 11:59 11:59 11:59 11:59 Intake Total 1402.25 / 1402.25 1421.5 / 1421.5 5842.783 / 5842.783 Output Total 3274 / 3274 2495 / 2845 3039 / 3039 166 / 166 Balance -1871.75 / -1871.75 -1073.5 / -1423.5 -3039 / -3039 5676.783 / 5676.783 Weight 234 lb 0.4 oz 233 lb 6 oz 226 lb 12.8 oz 236 lb 1.841 oz Microbiology Reports for the Last 24 Hours: Microbiology 11/03/20 18:23 Lung,Right Lower Lobe Gram Stain - Final 11/03/20 18:23 Lung,Right Lower Lobe Bronchial Aspirate Culture - Preliminary 11/03/20 04:30 Sputum - Endotracheal Tube Aspirate Gram Stain - Final 11/03/20 04:30 Sputum - Endotracheal Tube Aspirate Sputum Culture - Preliminary - Constitutional Comments: Intubated/sedated - *Routine Respiratory Exam Comments: 2-3 bubble airleak with each breath
--- NOTE | 2020-11-04 12:00 | PC.NURSE ---
gastric residual 0mL. Tubefeed rate continues @ 20mL/hr.
--- NOTE | 2020-11-04 12:13 | DIET.NUTRFU ---
Addendum entered by Shy Chavis 11/07/20 13:46: Pt in critical condition awaiting transfer. Renal function has continued to decline and is very poor, hyperkalemia noted, Na unchanged, weight is stable, BG has remained slightly elevated- avg. 130, normal bowel function. No change to nutritional care plan at this time, remain wary to further increase rate currently rt electolyte abnormalities and poor renal function. Pt also receiving additional kcal from propofol. Continuing to monitor and alter as indicated. Original Note: Events of last 48h reviewed, tube feeds stopped 11/02 for extubation, pt required re-intubation and is to restart tube feeds today. HILARIO and hyponatremia noted, weight up 10#, BG slightly increased over past 24 h- avg. 150. Pt has had 1 BM on 11/02. Currently receiving ~500 additional kcal from propofol. Not currently receiving IVF (given lactated ringers yesterday) Nutritional care plan to cautiously initiate previous regimen of Pulmocare 1.5 at 20ml/h and advance by 10ml/h q 8 hr as tolerated to goal rate of 46ml/h, will monitor and alter as indicated. Continue water flushes of 200ml q 4h.
[2020-11-04 13:45] LABS: Albumin Level 2.5 g/dl (3.5-5.0); Alkaline Phosphatase 107 U/L (38-126); Bilirubin, Conjugated 0.3 mg/dL (0.0-0.3); Bilirubin,Direct 1.1 mg/dl (0.0-0.4); Bilirubin,Indirect 0.3 mg/dL (0.0-0.9); Bilirubin,Total 1.4 mg/dl (0.2-1.3); Bilirubin,Unconjugated 0.3 mg/dL (0.0-1.1); Total Protein,Serum 5.6 g/dl (6.3-8.2)
[2020-11-04 13:55] LABS: Alanine Aminotransferase 2143 U/L (12-78)
[2020-11-04 14:07] LABS: Aspartate Amino Transferase 2465 U/L (14-36)
--- NOTE | 2020-11-04 15:10 | PC.NURSE ---
received new orders from Dr. Negron: hepatic panel, PT/INR today and then daily AM labs, RUQ ultrasound, and doppler for possible hepatic arterial thrombosis. Orders entered on his behalf.
--- NOTE | 2020-11-04 15:10 | HMH.PHAINT ---
PATIENT STARTED ON HEPARIN DRIP YESTERDAY. PATIENT'S PTT WAS INCREASING PREDICTABLY YESTERDAY WITH DOSE CHANGE. PTT INCREASED DRASTICALLY WITH EVEN LOW DOSES OF HEPARIN OVERNIGHT AND TODAY. SUSPECTED LIVER ISSUE. PLACED ORDER FOR LFT USING BLOOD FROM THIS AM BLOOD DRAW. AST INCREASED FROM 73 ON 11/01/20 TO 2465 TODAY. ALT INCREASED FROM 30 ON 11/01/[address] BOOGIE WAS NOTIFIED ABOUT LFT RESULTS. STOPPING HEPARIN DRIP AND OBTAINING PTT'S UNTIL THERAPEUTIC AGAIN. THEN WILL START LOVENOX. CHANGED BMP SERIES ORDER FOR AM LAB BY DR. BOLTON TO CMP SERIES TO OBTAIN LFTS WELL.
--- NOTE | 2020-11-04 15:18 | US_ITS ---
PROCEDURE: US ABDOMEN LIMITED CLINICAL INDICATION: elevated LFTs COMPARISON: CT CT ANGIO CHEST from 10/22/2020 visualization of the upper abdomen FINDINGS: Ultrasound of the hepatic artery was requested and performed. The main hepatic artery in the right hepatic artery are well visualized and normal. The portal vein is widely patent and demonstrates normal antegrade flow. The hepatic veins are patent and demonstrate normal directional flow. Partial visualization of the gallbladder is unremarkable and demonstrates no gallbladder wall thickening. IMPRESSION: Patent hepatic artery, portal vein, and hepatic veins. Dictated by: Whitney Lamb MD 11/04/2020 16:50 Whitney Lamb MD in [place] 11/04/2020 16:50
[2020-11-04 15:45] LABS: Activated Partial Thrombo Time 117.4 seconds (23.6-34.0)
--- NOTE | 2020-11-04 16:00 | PC.NURSE ---
gastric residual 0mL. Tubefeed rate increased to 30mL/hr.
--- NOTE | 2020-11-04 16:30 | PC.NURSE ---
Per Adrián Knight, keep Heparin gtt OFF and redraw PTT @ 1900 tonight.
[2020-11-04 17:19] LABS: INR 1.34 (0.9-1.1); Prothrombin Time 14.5 seconds (9.4-11.8)
--- NOTE | 2020-11-04 17:59 | PC.NURSE ---
BP 119/62. Levo gtt decreased to 7mcg/min.
[2020-11-04 20:34] LABS: Activated Partial Thrombo Time 60.1 seconds (23.6-34.0)
[2020-11-05] VITALS (31 sets, daily range): BP systolic 95–127; BP diastolic 55–75; PULSE 67–88; RESP 3–32; TEMP 35.7–36.9; O2SAT 89–99; BMI 38.9
--- NOTE | 2020-11-05 06:00 | XR_ITS ---
PROCEDURE: XR CHEST PORTABLE Referring Doctor: Torrey Brown Patient Age:65Y CLINICAL HISTORY: PTX; respiratory failure Sepsis. Intubated COMPARISON: CT CT ANGIO CHEST from 10/22/2020 CR XR CHEST PORTABLE from 11/03/2020 CR XR CHEST PORTABLE from 11/03/2020 CR XR CHEST PORTABLE from 11/04/2020 FINDINGS: Today's AP portable upright CXR it is compared to studies from 11/03 and 11/04/2020 There is less optimal inspiration today with worsening and progression of airspace disease bilaterally most evident towards lung bases.. Progression opacity and airspace disease particularly at the lung bases may a may be in part due to the less optimal inspiration noting diaphragm only down not quite down to the anterior-4th rib on right today; previously was down to the anterior 5th rib on November 03. Question, suspect developing small pleural effusions as CP angles are now ill-defined. The airspace disease and possible small effusions yield further obscuring of right and left hemidiaphragm-this feature progressive change since 11/03 and 11/04 There are slightly more evident air bronchograms centrally at perihilar region suggesting progression of infiltrate here as well.. Suggestion of vascular congestion and suspect mild CHF as to the appearance and picture. Mild cardiomegaly which is slightly accentuated and may be slightly accentuated by less optimal inspiration as well No residual pneumothorax. Left chest tube remains with tip projected over the posterior 5th rib ET tube satisfactory position with tip 2.9 cm above gage. Subclavian central line enters from the left with tip at SVC. NG tube remains in place passing well into stomach-Looping at proximal stomach with with tip at superior fundus IMPRESSION: 1.. Progression of bilateral airspace disease . Less optimal inspiration accentuate markings, but there appears to been progression of airspace disease bilaterally since November 03 . Findings most pronounced towards the lung bases and now further obscuring right and left hemidiaphragm, due to the progressing infiltrate, atelectasis along with possible small pleural effusions 2 .Suspect developing small bilateral pleural effusions 3. Suspect component of CHF may also contribute to the above appearance-Consider correlation BNP . Borderline/mild cardiomegaly 4. Tubes satisfactory: . Left chest tube remains with no residual pneumothorax . ET tube, NG tube, left central line satisfactory position Dictated by: Timothy Dickerson MD 11/05/2020 08:54 Timothy Dickerson MD in [facility] 11/05/2020 08:54
[2020-11-05 06:51] LABS: Basophils % 0.1 % (0.1-2.0); Eosinophils % 0.1 % (0.1-12.0); Hematocrit 30.5 % (37.0-47.0); Hemoglobin 9.8 g/dL (12.2-16.2); Lymphocytes # 0.8 K/mm3 (0.7-4.5); Lymphocytes % 4.8 % (10-50); Mean Corpuscular HGB Conc 32.1 g/dL (31.8-35.4); Mean Corpuscular Hemoglobin 30.7 pg (27.0-31.2); Mean Corpuscular Volume 95.6 fl (81-99); Mean Platelet Volume 10.1 fl (7.4-10.4); Monocytes # 0.3 K/mm3 (0.1-1.0); Monocytes % 1.7 % (1.7-9.3); Neutrophils # 15.5 K/mm3 (1.8-7.8); Neutrophils % 93.3 % (37.0-80.0); Platelet Count 89 K/mm3 (142-424); Red Blood Count 3.19 M/mm3 (4.20-5.40); Red Cell Distribution Width 13.7 % (11.5-17.5); White Blood Count 16.7 K/mm3 (4.8-10.8)
[2020-11-05 06:56] LABS: Chloride 98 mmol/L (98-107); Potassium 4.5 mmoL/L (3.5-5.1); Sodium 131 mmol/L (136-145)
[2020-11-05 06:58] LABS: Bilirubin,Unconjugated 0.1 mg/dL (0.0-1.1)
[2020-11-05 06:59] LABS: Albumin Level 2.5 g/dl (3.5-5.0); Alkaline Phosphatase 103 U/L (38-126); Anion Gap 19.5 mEq/L (5-15); Bilirubin,Indirect 0.1 mg/dL (0.0-0.9); Bilirubin,Total 1.1 mg/dl (0.2-1.3); Calcium 7.1 mg/dl (8.4-10.2); Carbon Dioxide 18 mmol/L (22.0-30.0); Glucose 125 mg/dl (74-100); Total Protein,Serum 5.5 g/dl (6.3-8.2)
[2020-11-05 07:02] LABS: MANUAL DIFFERENTIAL MANUAL DIFFERENTIAL (MANUAL DIFF)
[2020-11-05 07:05] LABS: Creatinine Clearance Estimated 25 mL/min (50-200); Estimated Glomerular Filt Rate 12 ml/min (>60); GFR (African American) 14 ML/MIN (>60)
[2020-11-05 07:23] LABS: Alanine Aminotransferase 2593 U/L (12-78); Aspartate Amino Transferase 2032 U/L (14-36); Blood Urea Nitrogen 88 mg/dl (7-17)
--- NOTE | 2020-11-05 08:06 | HMH.ACPN2 ---
Internal Medicine - PN: Subj *Date: 11/05/20 *Time: 08:06 Interval history: Patient remains stable. No acute events. Exam Vital signs and Labs for Last 24 Hours: Temp Pulse Resp BP Pulse Ox 97.6 F 72 24 107/55 L 98 11/05/20 06:13 11/05/20 06:13 11/05/20 06:13 11/05/20 06:13 11/05/20 06:13 Laboratory Results - last 24 hr 11/04/20 05:00: Total Bilirubin 1.4 H, Direct Bilirubin 1.1 H, Conjugated Bilirubin 0.3, Indirect Bilirubin 0.3, Unconjugated Bilirubin 0.3, AST 2465 H* D, ALT 2143 H*, Alkaline Phosphatase 107, Total Protein 5.6 L D, Albumin 2.5 L 11/04/20 09:00: APTT 126.1 H* D 11/04/20 11:50: APTT 275.0 H* D 11/04/20 14:30: APTT 117.4 H* D 11/04/20 15:30: PT 14.5 H, INR 1.34 H 11/04/20 19:00: APTT 60.1 H* D 11/05/20 05:55: WBC 16.7 H, RBC 3.19 L, Hgb 9.8 L, Hct 30.5 L, MCV 95.6, MCH 30.7, MCHC 32.1, RDW 13.7, Plt Count 89 L, MPV 10.1, Neut % (Auto) 93.3 H, Lymph % (Auto) 4.8 L, [place] % (Auto) 1.7, Eos % (Auto) 0.1, Baso % (Auto) 0.1, Neut # (Auto) 15.5 H, Lymph # (Auto) 0.8, [place] # (Auto) 0.3, Eos # (Auto) 0.0, Baso # (Auto) 0.0 11/05/20 05:55: Sodium 131 L, Potassium 4.5, Chloride 98, Carbon Dioxide 18 L, Anion Gap 19.5 H, BUN 88 H D, Creatinine 3.90 H D, Estimated Creat Clear 25, Estimated GFR 12 L*, Est GFR ( Amer) 14 L* D, Glucose 125 H, Calcium 7.1 L, Total Bilirubin 1.1, Direct Bilirubin 1.0 H, Conjugated Bilirubin 0.0, Indirect Bilirubin 0.1, Unconjugated Bilirubin 0.1, AST 2032 H*, ALT 2593 H*, Alkaline Phosphatase 103, Total Protein 5.5 L, Albumin 2.5 L I & O for Last 24 hours: Intake & Output 11/02/20 11/03/20 11/04/20 11/05/20 11:59 11:59 11:59 11:59 Intake Total 1421.5 / 1421.5 5842.783 / 5842.783 3563 / 3563 Output Total 2495 / 2845 3039 / 3039 166 / 166 97 / 97 Balance -1073.5 / -1423.5 -3039 / -3039 5676.783 / 5676.783 3466 / 3466 Weight 233 lb 6 oz 226 lb 12.8 oz 236 lb 1.841 oz 242 lb 6 oz Microbiology Reports for the Last 24 Hours: Microbiology 11/03/20 18:45 Urine,Catheterized Urine Culture - Preliminary NO GROWTH AFTER 24 HOURS 11/03/20 18:23 Lung,Right Lower Lobe Gram Stain - Final 11/03/20 18:23 Lung,Right Lower Lobe Bronchial Aspirate Culture - Preliminary 11/03/20 04:30 Sputum - Endotracheal Tube Aspirate Gram Stain - Final 11/03/20 04:30 Sputum - Endotracheal Tube Aspirate Sputum Culture - Preliminary Narrative: Sedated and intubated. Responds to vocal and tactile stimulus. Lungs scattered rhonchi bilaterally. Heart reg. rate adn rhythm. Abd. obese and soft. Ext with trace edema UOP <100ml over last 24 hours Bronchial asp. culture noted Assessment and Plan (1) Sepsis Status: Acute Qualifiers: Sepsis type: sepsis due to unspecified organism Sepsis acute organ dysfunction status: with acute organ dysfunction Severe sepsis acute organ dysfunction type: acute respiratory failure Acute respiratory failure type: with hypoxia Severe sepsis shock status: with septic shock Qualified Code(s): A41.9 - Sepsis, unspecified organism; R65.21 - Severe sepsis with septic shock; J96.01 - Acute respiratory failure with hypoxia Category: Medical Code(s): A41.9 - Sepsis, unspecified organism (2) STEMI (ST elevation myocardial infarction) Status: Acute Qualifiers: Involved coronary artery: unspecified coronary artery Qualified Code(s): I21.3 - ST elevation (STEMI) myocardial infarction of unspecified site Category: Medical Code(s): I21.3 - ST elevation (STEMI) myocardial infarction of unspecified site (3) Respiratory failure with hypoxia Status: Acute Qualifiers: Chronicity: acute on chronic Qualified Code(s): J96.21 - Acute and chronic respiratory failure with hypoxia Category: Medical Code(s): J96.91 - Respiratory failure, unspecified with hypoxia (4) Tension pneumothorax Status: Acute Category: Medical Code(s): J93.0 - Spontaneous tension pneumothorax (5) Acute hypo
[2020-11-05 08:10] LABS: ABG HCO3 16.1 mmhg (22.0-26.0); ABG Oxygen Saturation 98 % (90-100); ABG PCO2 31.9 mmhg (35.0-45.0); ABG PH 7.32 mmol/L (7.35-7.45); ABG PO2 141.9 mmhg (80-100); ABG TCO2 17.1 mmhg (23-27)
[2020-11-05 08:12] LABS: Allen's Test Non Applicable; Oxygen 95 %; PEEP 8; Source A LINE; Tidal Volume 440; Vent Rate 24
[2020-11-05 08:38] LABS: Lymphocytes % 6 % (10-50); Monocytes % 1 % (2-9); Neutrophils % 93 % (42-76); Total Cells Counted 100
[2020-11-05 08:39] LABS: Platelet Estimate Slight Decrease; RBC Morphology Normal
--- NOTE | 2020-11-05 18:17 | PC.NURSE ---
No acute changes this shift. Pt FIO2 weaned to 85% @ 1030 this AM, pt tolerated settings for majority of day w/ SPO2 in low 90's. Per Dr. Negron RT to wean FIO2 to maintain sat >92%. This afternoon sat decreased to 88 and did not improve w/ repositioning or suctioning. FIO2 increased back to 95% by Sera,RT @ 1830. No further changes made to vent settings by Dr. Negron when POC was discussed over phone. Levophed titrated to maintain MAP > [address] Negron, Levo currently @ 3 mcg/min. Oral care and suctioning performed Q2H /prn. Secretions noted to be thick and blood streaked, mod amount. Remains in sinus on tely, HR in 80's. Generalized edema noted, pitting in upper and lower extremities. Pt turned and repositioned Q2H. No breakdown noted. Pt was bathed and linens changed this shift, grijalva care performed by staff. Pt had minimal UOP this shift. Pt did have a med size green BM this shift. TF @ goal rate, residuals checked Q4H. Family have called three times today and were updated on pt plan of care.
--- NOTE | 2020-11-05 20:40 | XR_ITS ---
PROCEDURE: XR CHEST PORTABLE Referring Doctor: Abudllahi Christie Patient Age:65Y CLINICAL HISTORY: resp failure Intubation COMPARISON: CT CT ANGIO CHEST from 10/22/2020 CR XR CHEST PORTABLE from 11/03/2020 CR XR CHEST PORTABLE from 11/04/2020 CR XR CHEST PORTABLE from 11/05/2020 FINDINGS: AP semi-erect portable CXR performed at 2050 hours on 11/05/2020 is compared to CXR from earlier today at 5:14 a.m. Left chest tube remains in place. However on this study we do see thin sliver of pneumothorax evident overlying the left lung apex.. This was not appreciable on earlier study There has been further progression of bilateral airspace disease even since chest film from this morning. Diffuse bilateral infiltrates with infiltrate most pronounced towards the right lung base. Possible associated small right effusion. The air bronchograms are becoming slightly more evident bilaterally particularly throughout the central portion of the lung uk reflecting the progressive airspace disease as well. Concern findings reflect developing/progressing ARDS-correlation required clinically Tubes and catheters: ET tube satisfactory position with tip 3.1 cm above gage. NG tube satisfactory position looping in the stomach with tip towards fundus. Left subclavian central line stable with tip at SVC IMPRESSION: 1..Left chest tube remains in place, but there is now a Thin Small Recurrence Pneumothorax evident overlying left lung apex.. 2.... Progressive diffuse airspace disease bilaterally, with progression evident even since earlier this morning CXR. Air bronchograms becoming more evident throughout lung ku bilaterally particularly centrally. Diffuse bilateral infiltrate, most evident towards right lung base on this study. Suboptimal expansion (with less expansion lungs vs Feb 19) may contribute to overall appearance as well, but overall findings are concerning for developing ARDS particularly in view of history sepsis. Clinical correlation required.. 3. ET tube, NG tube-remains satisfactory position; as does the left chest tube Dictated by: Timothy Dickerson MD 11/05/2020 21:59 Timothy Dickerson MD in [place] 11/05/2020 21:59
[2020-11-06] VITALS (35 sets, daily range): BP systolic 93–147; BP diastolic 50–72; PULSE 66–94; RESP 18–30; TEMP 35.9–38; O2SAT 86–96; BMI 38.1
[2020-11-06 05:07] LABS: Basophils # 0.1 K/mm3 (0-0.2); Basophils % 0.4 % (0.1-2.0); Eosinophils % 0.2 % (0.1-12.0); Hematocrit 30.3 % (37.0-47.0); Hemoglobin 9.8 g/dL (12.2-16.2); Lymphocytes # 0.9 K/mm3 (0.7-4.5); Lymphocytes % 4.6 % (10-50); Mean Corpuscular HGB Conc 32.3 g/dL (31.8-35.4); Mean Corpuscular Hemoglobin 30.5 pg (27.0-31.2); Mean Corpuscular Volume 94.3 fl (81-99); Mean Platelet Volume 9.7 fl (7.4-10.4); Monocytes # 0.3 K/mm3 (0.1-1.0); Monocytes % 1.8 % (1.7-9.3); Neutrophils # 17.3 K/mm3 (1.8-7.8); Neutrophils % 92.9 % (37.0-80.0); Platelet Count 109 K/mm3 (142-424); Red Blood Count 3.21 M/mm3 (4.20-5.40); Red Cell Distribution Width 13.6 % (11.5-17.5); White Blood Count 18.6 K/mm3 (4.8-10.8)
[2020-11-06 05:09] LABS: MANUAL DIFFERENTIAL MANUAL DIFFERENTIAL (MANUAL DIFF)
[2020-11-06 05:14] LABS: Chloride 97 mmol/L (98-107); Potassium 5.3 mmoL/L (3.5-5.1); Sodium 130 mmol/L (136-145)
[2020-11-06 05:17] LABS: Albumin Level 2.6 g/dl (3.5-5.0); Albumin/Globulin Ratio 0.8 (1.1-1.8); Alkaline Phosphatase 117 U/L (38-126); Anion Gap 24.3 mEq/L (5-15); Bilirubin,Total 1.2 mg/dl (0.2-1.3); Carbon Dioxide 14 mmol/L (22.0-30.0); Globulin 3.2 g/dL (1.3-3.2); Glucose 132 mg/dl (74-100); Total Protein,Serum 5.8 g/dl (6.3-8.2)
[2020-11-06 05:18] LABS: Ammonia 67 umol/L (9-30)
[2020-11-06 05:19] LABS: Lymphocytes % 5 % (10-50); Neutrophils % 91 % (42-76); Total Cells Counted 100
[2020-11-06 05:20] LABS: Hypochromasia 1+; Platelet Estimate Slight Decrease
[2020-11-06 05:21] LABS: INR 1.17 (0.9-1.1); Prothrombin Time 12.8 seconds (9.4-11.8)
--- NOTE | 2020-11-06 05:22 | PC.NURSE ---
shift summary on initital assessment patient breathing 35 times a minute, o2 sats 89-90% on 95% fio2. breathing pattern more labored than previous night, continuously alarming high pressure alarm. sedation increased. assessment continued ct to 20 cm suction. air leak with slight increase throughout shift fio2 t from previous night with fluctuation with respirations slightly audible which also was not present previous night. no crepitus noted. ct system checked for loose connections and dressing taken down and redressed with vaseline gauze and 4x4 per sterile technique. audible fluctuation remained. dr. snow called to check on patient and was updated regarding respiratory status as well as change in ct. pcxr ordered and reviewed by dr. snow. rn was notified that ct still in place but xray looking progressively worse. fio2 increased to 100% until patient began tolerating vent again. sats returned to mid 90s. throughout rest of shift was able to titrate fio2 down to 85% with sats maintaining mid 90s, sedation once again decreased back to previous 100mcq of fentanyl. attempted several times throughout shift to titrate levophed unsuccessfully, levo remains at 3 mcq/min. continues to have scant urine output.
[2020-11-06 05:23] LABS: Creatinine Clearance Estimated 19 mL/min (50-200)
[2020-11-06 05:27] LABS: Blood Urea Nitrogen 100 mg/dl (7-17)
[2020-11-06 05:29] LABS: Aspartate Amino Transferase 1039 U/L (14-36)
[2020-11-06 05:30] LABS: Estimated Glomerular Filt Rate 9 ml/min (>60); GFR (African American) 11 ML/MIN (>60)
[2020-11-06 05:48] LABS: Alanine Aminotransferase > 2250 U/L (12-78)
--- NOTE | 2020-11-06 06:00 | XR_ITS ---
PROCEDURE: XR CHEST PORTABLE CLINICAL HISTORY: PTX; respiratory failure COMPARISON: CT CT ANGIO CHEST from 10/22/2020 CR XR CHEST PORTABLE from 11/04/2020 CR XR CHEST PORTABLE from 11/05/2020 CR XR CHEST PORTABLE from 11/05/2020 FINDINGS: The left sided chest tube remains in place. Again there may be a tiny 1-2 mm left apical pneumothorax remaining. Prominent diffuse ill-defined opacities involve both lung ku again most prominent at the right perihilar region and right lung base. The endotracheal tube remains in satisfactory position and the NG tube is seen with the tip curled in the upper portion of the stomach. The central line is seen entering the left subclavian vein with the tip at the junction of the innominate vein and SVC. IMPRESSION: Basically stable chest with little or no change from yesterday's study Dictated by: Dr. Valdez Arellano MD 11/06/2020 08:11 Dr. Valdez Arellano MD in [place] 11/06/2020 08:11
[2020-11-06 07:28] LABS: ABG HCO3 14.7 mmhg (22.0-26.0); ABG Oxygen Saturation 93 % (90-100); ABG PCO2 36.5 mmhg (35.0-45.0); ABG PH 7.22 mmol/L (7.35-7.45); ABG PO2 81.6 mmhg (80-100); ABG TCO2 15.8 mmhg (23-27)
[2020-11-06 07:29] LABS: Oxygen 80 %; PEEP 8; Tidal Volume 440; Vent Rate 24
[2020-11-06 07:30] LABS: Source A LINE
--- NOTE | 2020-11-06 07:57 | HMH.ACPN2 ---
Internal Medicine - PN: Subj *Date: 11/06/20 *Time: 08:03 Interval history: Patient is remained stable over the last 24 hours while sedated on the ventilator without acute issues. Urine output remains low. Exam Vital signs and Labs for Last 24 Hours: Temp Pulse Resp BP Pulse Ox 97.6 F 71 28 H 109/56 L 95 11/06/20 03:36 11/06/20 06:40 11/06/20 06:40 11/06/20 06:26 11/06/20 06:40 Laboratory Results - last 24 hr 11/05/20 05:55: Total Counted 100, Neutrophils % (Manual) 93 H, Lymphocytes % (Manual) 6 L, Monocytes % (Manual) 1 L, Platelet Estimate Slight decrease, RBC Morphology Normal 11/05/20 : Specimen Source A line, O2 % 95, ABG pH 7.32 L, ABG pCO2 31.9 L, ABG pO2 141.9 H, ABG HCO3 16.1 L, ABG Total CO2 17.1 L, ABG O2 Saturation 98, ABG Base Excess -10.0 L, Connor Test Non applicable, Vent Rate 24, Tidal Volume 440, PEEP 8 11/06/20 04:50: WBC 18.6 H, RBC 3.21 L, Hgb 9.8 L, Hct 30.3 L, MCV 94.3, MCH 30.5, MCHC 32.3, RDW 13.6, Plt Count 109 L, MPV 9.7, Neut % (Auto) 92.9 H, Lymph % (Auto) 4.6 L, [place] % (Auto) 1.8, Eos % (Auto) 0.2, Baso % (Auto) 0.4, Neut # (Auto) 17.3 H, Lymph # (Auto) 0.9, [place] # (Auto) 0.3, Eos # (Auto) 0.0, Baso # (Auto) 0.1, Total Counted 100, Neutrophils % (Manual) 91 H, Band Neutrophils % 4.0, Lymphocytes % (Manual) 5 L, Platelet Estimate Slight decrease, Hypochromasia 1+ 11/06/20 04:50: Sodium 130 L, Potassium 5.3 H, Chloride 97 L, Carbon Dioxide 14 L D, Anion Gap 24.3 H, BUN 100 H, Creatinine 4.90 H D, Estimated Creat Clear 19, Estimated GFR 9 L*, Est GFR ( Amer) 11 L* D, Glucose 132 H, Calcium 7.0 L, Total Bilirubin 1.2, AST 1039 H* D, ALT > 2250 H*, Alkaline Phosphatase 117, Total Protein 5.8 L, Albumin 2.6 L, Globulin 3.2, Albumin/Globulin Ratio 0.8 L 11/06/20 04:50: PT 12.8 H, INR 1.17 H 11/06/20 04:50: Ammonia 67 H 11/06/20 07:14: Specimen Source A line, O2 % 80, ABG pH 7.22 L*, ABG pCO2 36.5, ABG pO2 81.6, ABG HCO3 14.7 L, ABG Total CO2 15.8 L, ABG O2 Saturation 93, ABG Base Excess -13.0 L, Vent Rate 24, Tidal Volume 440, PEEP 8 I & O for Last 24 hours: Intake & Output 11/03/20 11/04/20 11/05/20 11/06/20 11:59 11:59 11:59 11:59 Intake Total 5842.783 / 5842.783 3821 / 3821 2653 / 2653 Output Total 3039 / 3039 166 / 166 117 / 117 77 / 77 Balance -3039 / -3039 5676.783 / 5676.783 3704 / 3704 2576 / 2576 Weight 226 lb 12.8 oz 236 lb 1.841 oz 242 lb 6 oz 237 lb 3 oz Microbiology Reports for the Last 24 Hours: Microbiology 11/03/20 18:23 Lung,Right Lower Lobe Gram Stain - Final 11/03/20 18:23 Lung,Right Lower Lobe Bronchial Aspirate Culture - Preliminary Gram Positive Cocci Gram Positive Cocci#2 11/03/20 04:30 Sputum - Endotracheal Tube Aspirate Gram Stain - Final 11/03/20 04:30 Sputum - Endotracheal Tube Aspirate Sputum Culture - Preliminary 11/03/20 18:45 Urine,Catheterized Urine Culture - Final NO GROWTH AFTER 48 HOURS 11/03/20 13:55 Blood Blood Culture - Preliminary NO GROWTH AFTER 48 HOURS 11/03/20 13:55 Blood Blood Culture - Preliminary NO GROWTH AFTER 48 HOURS - Constitutional no acute distress (Sedated on ventilator), obese - *Routine Neck Exam Present: supple. Absent: JVD - Routine Chest/Breast/Axilla Exam Comments: Left subclavian line present. Left chest tube present - *Routine Respiratory Exam Present: patient mechanically ventilated, rhonchi - *Routine Cardiovascular Exam Present: RRR, Normal S1, Normal S2 - *Routine Abdominal Exam Present: soft. Absent: tenderness, distended, rebound - *Routine Extremities Exam Present: edema (1-2+ lower extremities), pulses intact, normal capillary refill. Absent: cyanosis, tenderness - *Routine Skin Exam Present: ecchymosis (Left wrist) - *Routine Neurological Exam Patient sedated this morning and has no response to verbal or tactile stim
--- NOTE | 2020-11-06 08:23 | HMH.DCSUM ---
General - General Admission date:: 10/22/20 Discharge date: 11/07/20 HPI HPI: 65-year-old female diagnosed with COVID-19 infection on October 10 after presenting to the office with nasal congestion and discovery of recent exposure presented to the ER via EMS yesterday evening with respiratory failure. Patient reports over the last 2 weeks since her diagnosis her symptoms have fluctuated. During that time she had a period where for 1 to 2 days she felt short of breath but patient admits in the days leading up to her ER presentation she thought she was getting better. However, she does not recall the events of October 21 that ultimately led to her hospitalization. ER notes indicate patient was unconscious/unresponsive at home when EMS arrived. Patient's O2 sats were in the 40s. Patient was placed on nonrebreather and transported to the ER. In the ER patient was evaluated and has subsequently been admitted to the Covid unit on Vapotherm which is currently maxed at an FiO2 of 100% and 40 L/min. Nursing staff reports patient's O2 sats have been in the mid to high 80s on Vapotherm. Despite having obvious tachypnea with some conversational dyspnea patient denies feeling significantly short of breath this morning. Patient also had an elevated troponin on admission and denies having chest pain. Hospital Course Hospital Course: Patient was admitted on the evening of October 21. Patient had COVID-19 pneumonia with hypoxemic respiratory failure. Patient was initially placed on high flow nasal cannula which allowed patient to keep her O2 sats in the low 90s. Was started on remdesivir and dexamethasone along with nutritional supplementation and continued a 10-day course of remdesivir and dexamethasone during her hospitalization. Patient was kept on antibiotics during hospitalization as well initially being Rocephin and azithromycin. ultimately patient required intubation on the morning of October 25 when high flow nasal cannula was no longer able to provide appropriate oxygenation. Patient ultimately required intubation with mechanical ventilation on October 25. Pulmonology was consulted at this time and patient vent settings were managed by Dr. Negron. Patient remained intubated from October 25 until the morning of November 02 at which point she was able to be extubated. Once patient had been intubated antibiotics were changed to cefepime and vancomycin along with the azithromycin. Patient completed 5 days of azithromycin. She remained on cefepime and vancomycin until patient ultimately ended up reintubated. At that point antibiotics were changed to Zosyn and vancomycin. Patient did well post extubation for approximately 12 hours and then acutely decompensated and developed septic shock. On the late evening of November 02/hydrometeorologist of November 03 patient acutely decompensated. Patient was being repositioned due to complaints of pain in her back when she developed acute hypoxia with sudden change in cardiac rhythm on telemetry monitoring initially concerning for V. tach but later interpreted as sinus tachycardia with ST elevations. A rapid response was called. Patient had a troponin of 8. Stock Broker was contacted who ordered IV Lasix for the patient and esmolol intravenously to bring the patient's heart rate down. This also resulted in a decline in patient's blood pressure. Earlier during hospitalization while intubated patient had been on Levophed and this was restarted to maintain appropriate blood pressure. Patient was also discovered to have a new left-sided pneumothorax. Chest tube was inserted by the ER physician and later the general surgical service was consulted for chest tube management. Patient was stabilized. The morning of the she was given 2 L of lactated Ringer's to try to improve blood pressure. Patient had Skinny-Synephrine added onto her pressor regimen although this was not required for a lengthy period of time. A
--- NOTE | 2020-11-06 09:04 | PC.NURSE ---
Spoke w/ Nyla @ [facility], updated on pt. No bed available @ this time.
--- NOTE | 2020-11-06 09:20 | PC.NURSE ---
0920 - Spoke w/ Dr. Negron, update on pt. Orders for pt to received 200 mg IV Lasix x1, monitor output and call him w/ update in 4 hours, along w/ ABG results.
[2020-11-06 11:18] LABS: Lactic Acid 1.1 mmol/L (0.7-2.1)
[2020-11-06 11:19] LABS: Triglycerides 409 mg/dl (30-150)
[2020-11-06 14:02] LABS: ABG Base Excess -14.3 mmol/L (-2.4-2.3); ABG HCO3 13.7 mmhg (22.0-26.0); ABG Oxygen Saturation 92 % (90-100); ABG PO2 79.4 mmhg (80-100); ABG TCO2 14.8 mmhg (23-27)
[2020-11-06 14:18] LABS: Oxygen 85 %; PEEP 8; Source ART LINE; Tidal Volume 440; Vent Rate 24
--- NOTE | 2020-11-06 14:33 | PC.NURSE ---
Results of ABG called to Dr. Negron @ 5298. New orders obtained for pt to received 1 AMP of Bicarb and for pt to be started on Bicarb gtt (100 meq/1L) @ 50 mls/hr. RB +V. New order for ABG to be obtained @ 1800 and results to be called to him.
[2020-11-06 18:15] LABS: ABG Base Excess -12.3 mmol/L (-2.4-2.3); ABG HCO3 15.3 mmhg (22.0-26.0); ABG Oxygen Saturation 92 % (90-100); ABG PCO2 38.1 mmhg (35.0-45.0); ABG PH 7.22 mmol/L (7.35-7.45); ABG PO2 76.8 mmhg (80-100); ABG TCO2 16.5 mmhg (23-27)
--- NOTE | 2020-11-06 19:19 | PC.NURSE ---
ABG results called to Dr. Negron @ this time, orders to change Bicarb gtt to 150 meq in 1 L @ 50 mls/hr. Vent settings changed to TV of 480 w/ Q4H duoneb.
--- NOTE | 2020-11-06 19:30 | PC.NURSE ---
RESPIRATORY CARE NOTE: SPOKE TO ON PHONE AND HE ORDERED FOR THE TIDAL VOLUME TO BE INCREASED TO 480 AND DUO NEBS TO BE CHANGED FROM Q6 TO Q4. PT IS TOLERATING VENT CHANGES WELL AT THIS TIME.
[2020-11-06 22:49] LABS: Oxygen 85 %; PEEP 8; Tidal Volume 440; Vent Rate 24
[2020-11-06 22:50] LABS: Source ARTERIAL LINE
[2020-11-07] VITALS (24 sets, daily range): BP systolic 99–126; BP diastolic 49–66; PULSE 70–90; RESP 24–33; TEMP 36.6–37.7; O2SAT 85–96; BMI 38.5
--- NOTE | 2020-11-07 06:00 | XR_ITS ---
PROCEDURE: XR CHEST PORTABLE CLINICAL HISTORY: PTX; respiratory failure Covid19 pneumonia COMPARISON: CT CT ANGIO CHEST from 10/22/2020 CR XR CHEST PORTABLE from 11/05/2020 CR XR CHEST PORTABLE from 11/05/2020 CR XR CHEST PORTABLE from 11/06/2020 FINDINGS: 5:20 a.m.. Endotracheal tube, left subclavian central venous line, orogastric tube, left-sided chest tube all remain in good position Diffuse bilateral airspace disease once again noted unchanged. No evidence of pneumothorax. No acute bony abnormalities. IMPRESSION: No change diffuse airspace disease with tubes and lines in good position Dictated by: Connor Pena MD 11/07/2020 06:51 Connor Pena MD in [facility] 11/07/2020 06:51
[2020-11-07 06:28] LABS: Basophils # 0.1 K/mm3 (0-0.2); Basophils % 0.4 % (0.1-2.0); Eosinophils % 0.1 % (0.1-12.0); Hematocrit 26.8 % (37.0-47.0); Hemoglobin 9.1 g/dL (12.2-16.2); Mean Corpuscular Hemoglobin 30.9 pg (27.0-31.2); Mean Corpuscular Volume 90.8 fl (81-99); Monocytes # 0.5 K/mm3 (0.1-1.0); Monocytes % 2.6 % (1.7-9.3); Neutrophils # 17.9 K/mm3 (1.8-7.8); Neutrophils % 91.9 % (37.0-80.0); Platelet Count 125 K/mm3 (142-424); Red Blood Count 2.95 M/mm3 (4.20-5.40); White Blood Count 19.5 K/mm3 (4.8-10.8)
[2020-11-07 06:32] LABS: Chloride 95 mmol/L (98-107); MANUAL DIFFERENTIAL MANUAL DIFFERENTIAL (MANUAL DIFF)
[2020-11-07 06:33] LABS: Potassium 5.4 mmoL/L (3.5-5.1); Sodium 131 mmol/L (136-145)
[2020-11-07 06:35] LABS: Alkaline Phosphatase 150 U/L (38-126); Aspartate Amino Transferase 371 U/L (14-36); Bilirubin,Total 1.2 mg/dl (0.2-1.3)
[2020-11-07 06:36] LABS: Albumin Level 2.6 g/dl (3.5-5.0); Albumin/Globulin Ratio 0.9 (1.1-1.8); Anion Gap 25.4 mEq/L (5-15); Carbon Dioxide 16 mmol/L (22.0-30.0); Glucose 143 mg/dl (74-100); Total Protein,Serum 5.6 g/dl (6.3-8.2)
[2020-11-07 06:42] LABS: Creatinine Clearance Estimated 17 mL/min (50-200); Estimated Glomerular Filt Rate 8 ml/min (>60); GFR (African American) 9 ML/MIN (>60)
[2020-11-07 06:51] LABS: INR 1.15 (0.9-1.1); Prothrombin Time 12.6 seconds (9.4-11.8)
--- NOTE | 2020-11-07 06:58 | HMH.ACPN2 ---
Internal Medicine - PN: Subj *Date: 11/07/20 *Time: 06:58 Interval history: Patient remained stable on the ventilator. No acute events over the last 24 hours. Urine output remains low with less than 100 mL of urine produced in the last 24 hours. Exam Vital signs and Labs for Last 24 Hours: Temp Pulse Resp BP Pulse Ox 99.8 F H 70 32 H 116/63 93 L 11/07/20 05:00 11/07/20 06:49 11/07/20 06:49 11/07/20 06:49 11/07/20 06:49 Laboratory Results - last 24 hr 11/06/20 07:14: Specimen Source A line, O2 % 80, ABG pH 7.22 L*, ABG pCO2 36.5, ABG pO2 81.6, ABG HCO3 14.7 L, ABG Total CO2 15.8 L, ABG O2 Saturation 93, ABG Base Excess -13.0 L, Vent Rate 24, Tidal Volume 440, PEEP 8 11/06/20 11:00: Triglycerides 409 H 11/06/20 11:00: Lactate 1.1 11/06/20 13:00: Specimen Source Art line, O2 % 85, ABG pH 7.20 L*, ABG pCO2 36.0, ABG pO2 79.4 L, ABG HCO3 13.7 L, ABG Total CO2 14.8 L, ABG O2 Saturation 92, ABG Base Excess -14.3 L, Connor Test N/a, Vent Rate 24, Tidal Volume 440, PEEP 8 11/06/20 18:00: Specimen Source Arterial line, O2 % 85, ABG pH 7.22 L*, ABG pCO2 38.1, ABG pO2 76.8 L, ABG HCO3 15.3 L, ABG Total CO2 16.5 L, ABG O2 Saturation 92, ABG Base Excess -12.3 L, Vent Rate 24, Tidal Volume 440, PEEP 8 11/07/20 05:55: WBC 19.5 H, RBC 2.95 L, Hgb 9.1 L, Hct 26.8 L, MCV 90.8, MCH 30.9, MCHC 34.0, RDW 14.0, Plt Count 125 L, MPV 10.0, Neut % (Auto) 91.9 H, Lymph % (Auto) 5.0 L, [place] % (Auto) 2.6, Eos % (Auto) 0.1, Baso % (Auto) 0.4, Neut # (Auto) 17.9 H, Lymph # (Auto) 1.0, [place] # (Auto) 0.5, Eos # (Auto) 0.0, Baso # (Auto) 0.1 11/07/20 05:55: Sodium 131 L, Potassium 5.4 H, Chloride 95 L 11/07/20 05:55: PT 12.6 H, INR 1.15 H I & O for Last 24 hours: Intake & Output 11/04/20 11/05/20 11/06/20 11/07/20 11:59 11:59 11:59 11:59 Intake Total 5842.783 / 5842.783 3821 / 3821 2653 / 2653 2635 / 2635 Output Total 166 / 166 117 / 117 112 / 117 146 / 146 Balance 5676.783 / 5676.783 3704 / 3704 2541 / 2536 2489 / 2489 Weight 236 lb 1.841 oz 242 lb 6 oz 237 lb 3 oz 239 lb 13.807 oz Microbiology Reports for the Last 24 Hours: Microbiology 11/03/20 18:23 Lung,Right Lower Lobe Gram Stain - Final 11/03/20 18:23 Lung,Right Lower Lobe Bronchial Aspirate Culture - Preliminary Gram Positive Cocci Gram Positive Cocci#2 11/03/20 04:30 Sputum - Endotracheal Tube Aspirate Gram Stain - Final 11/03/20 04:30 Sputum - Endotracheal Tube Aspirate Sputum Culture - Preliminary Narrative: Patient remains sedated. No response to vocal or tactile stimulus. Pupils are reactive. Lungs are clear anteriorly. Diminished posteriorly and at the bases. Heart has a regular rate and rhythm. Abdomen is obese and soft. Patient has trace to 1+ edema of the lower extremities. Assessment and Plan (1) Acute kidney injury Status: Acute Category: Medical Code(s): N17.9 - Acute kidney failure, unspecified (2) Sepsis with acute liver failure and septic shock Status: Acute Qualifiers: Sepsis type: sepsis due to unspecified organism Category: Medical Code(s): A41.9 - Sepsis, unspecified organism; R65.21 - Severe sepsis with septic shock; K72.01 - Acute and subacute hepatic failure with coma (3) Respiratory failure with hypoxia Status: Acute Qualifiers: Chronicity: acute Qualified Code(s): J96.01 - Acute respiratory failure with hypoxia Category: Medical Code(s): J96.91 - Respiratory failure, unspecified with hypoxia (4) Tension pneumothorax Status: Acute Category: Medical Code(s): J93.0 - Spontaneous tension pneumothorax (5) Sepsis Status: Resolved Qualifiers: Sepsis type: sepsis due to unspecified organism Sepsis acute organ dysfunction status: with acute organ dysfunction Severe sepsis acute organ dysfunction type: acute respiratory failure Acute respiratory failure type: with hypoxia Severe sepsis shock status: with septic shock Qual
[2020-11-07 07:01] LABS: Alanine Aminotransferase 1651 U/L (12-78); Blood Urea Nitrogen 113 mg/dl (7-17)
[2020-11-07 07:02] LABS: Calcium 6.7 mg/dl (8.4-10.2)
[2020-11-07 07:29] LABS: ABG HCO3 15.7 mmhg (22.0-26.0); ABG Oxygen Saturation 95 % (90-100); ABG PCO2 33.8 mmhg (35.0-45.0); ABG PH 7.28 mmol/L (7.35-7.45); ABG PO2 87.9 mmhg (80-100); ABG TCO2 16.7 mmhg (23-27)
[2020-11-07 07:31] LABS: Oxygen 85 %; PEEP 8; Tidal Volume 480; Vent Rate 24
[2020-11-07 07:32] LABS: Source ALINE
--- NOTE | 2020-11-07 08:40 | PC.NURSE ---
Dr Castro aware of critical/notification results. Pt on list for pending transfer to or [facility]
[2020-11-07 08:43] LABS: Lymphocytes % 10 % (10-50); Monocytes % 3 % (2-9); Neutrophils % 87 % (42-76); Platelet Estimate Normal; RBC Morphology Normal; Total Cells Counted 100
--- NOTE | 2020-11-07 08:45 | HMH.PULMPN ---
Internal Medicine - PN: Subj *Date: 11/07/20 *Time: 11:32 Interval history: No acute respite events overnight, patient renal function continued to worsen Exam - Constitutional Constitutional:: Present: no acute distress, comfortable - HENMT Exam HENMT: Present: atraumatic - Eye Exam Eyes:: Present: eyelids normal - Neck Exam Neck:: Present: thyroid normal - Respiratory Exam Respiratory:: Present: crackles - Cardiovascular Exam Cardiac:: Present: S1, S2 - GI Exam GI:: Present: soft - Skin Exam Skin: Present: warm, no rash - Extremities Exam Extremities: Present: no cyanosis, no clubbing, edema Assessment and Plan (1) Acute kidney injury Status: Acute Category: Medical Code(s): N17.9 - Acute kidney failure, unspecified (2) Sepsis with acute liver failure and septic shock Status: Acute Qualifiers: Sepsis type: sepsis due to unspecified organism Category: Medical Code(s): A41.9 - Sepsis, unspecified organism; R65.21 - Severe sepsis with septic shock; K72.01 - Acute and subacute hepatic failure with coma (3) Respiratory failure with hypoxia Status: Acute Qualifiers: Chronicity: acute Qualified Code(s): J96.01 - Acute respiratory failure with hypoxia Category: Medical Code(s): J96.91 - Respiratory failure, unspecified with hypoxia (4) Tension pneumothorax Status: Acute Category: Medical Code(s): J93.0 - Spontaneous tension pneumothorax (5) Sepsis Status: Resolved Qualifiers: Sepsis type: sepsis due to unspecified organism Sepsis acute organ dysfunction status: with acute organ dysfunction Severe sepsis acute organ dysfunction type: acute respiratory failure Acute respiratory failure type: with hypoxia Severe sepsis shock status: with septic shock Qualified Code(s): A41.9 - Sepsis, unspecified organism; R65.21 - Severe sepsis with septic shock; J96.01 - Acute respiratory failure with hypoxia Category: Medical Code(s): A41.9 - Sepsis, unspecified organism (6) COVID-19 virus infection Status: Acute Category: Medical Code(s): U07.1 - COVID-19 (7) Viral pneumonia Status: Acute Category: Medical Code(s): J12.9 - Viral pneumonia, unspecified (8) Metabolic acidosis Status: Acute Category: Medical Code(s): E87.2 - Acidosis (9) STEMI (ST elevation myocardial infarction) Status: Acute Category: Medical Code(s): I21.3 - ST elevation (STEMI) myocardial infarction of unspecified site (10) Pulmonary embolism Status: Acute Category: Medical Code(s): I26.99 - Other pulmonary embolism without acute cor pulmonale (11) Deep venous thrombosis (DVT) of left peroneal vein Status: Acute Category: Medical Code(s): I82.452 - Acute embolism and thrombosis of left peroneal vein (12) Obesity Status: Chronic Qualifiers: Obesity type: due to excess calories Obesity classification: adult class 1 (BMI 30 - 34.9) Body mass index: BMI 30.0-30.9 Category: Medical Code(s): E66.9 - Obesity, unspecified (13) Obesity (BMI 30-39.9) Status: Acute Category: Medical Code(s): E66.9 - Obesity, unspecified - Assessment and plan all Dx Assessment and Plan for all problems:: #Acute hypoxic respiratory failure: #COVID-19 pneumonia: #Pneumonia: #Shock LIver 65-year-old no prior respiratory complaints recent diagnosis of COVID-19 pneumonia with worsening symptoms presented to the hospital needing high flow nasal cannula to maintain oxygen saturations. CT on admission showed bilateral diffuse groundglass opacities and also showed questionable subacute to chronic pulmonary embolism. Creatinine stable on admission. Patient was initiated on vancomycin cefepime and azithromycin along with remdesivir and dexamethasone on admission. Patient respiratory status continued to be critical since admission needing 40 L 100% Vapotherm and has been gradually declining with frequent episodes of desaturations eventually this morning nee
--- NOTE | 2020-11-07 09:56 | PC.NURSE ---
RESPIRATORY CARE NOTE: PEEP INCREASED TO [address] BOOGIE
[2020-11-07 10:33] LABS: Hep A Ab, IgM Negative (Negative); Hepatitis B Core Antibody IgM Negative (Negative); Hepatitis B Surface Antigen Negative (Negative)
[2020-11-07 11:43] LABS: Hepatitis C Antibody <0.1 s/co ratio (0.0-0.9)
--- NOTE | 2020-11-07 12:46 | HMH.GSPN ---
Progress Note: A&P (1) Acute kidney injury Status: Acute (2) Sepsis with acute liver failure and septic shock Status: Acute (3) Respiratory failure with hypoxia Status: Acute (4) Tension pneumothorax Status: Acute Assessment and plan: Continue to suction for now. May need to increase suction. (5) Sepsis Status: Resolved (6) COVID-19 virus infection Status: Acute (7) Viral pneumonia Status: Acute (8) Metabolic acidosis Status: Acute (9) STEMI (ST elevation myocardial infarction) Status: Acute (10) Pulmonary embolism Status: Acute (11) Deep venous thrombosis (DVT) of left peroneal vein Status: Acute (12) Obesity Status: Chronic (13) Obesity (BMI 30-39.9) Status: Acute Exam Vital signs and Labs for Last 24 Hours: Temp Pulse Resp BP Pulse Ox 99.8 F H 75 33 H 116/63 96 11/07/20 05:00 11/07/20 09:52 11/07/20 09:59 11/07/20 06:49 11/07/20 09:59 Laboratory Results - last 24 hr 11/04/20 15:30: Hepatitis A IgM Ab Negative, Hep Bs Antigen Negative, Hep B Core IgM Ab Negative, Hepatitis C Antibody <0.1 11/06/20 13:00: Specimen Source Art line, O2 % 85, ABG pH 7.20 L*, ABG pCO2 36.0, ABG pO2 79.4 L, ABG HCO3 13.7 L, ABG Total CO2 14.8 L, ABG O2 Saturation 92, ABG Base Excess -14.3 L, Connor Test N/a, Vent Rate 24, Tidal Volume 440, PEEP 8 11/06/20 18:00: Specimen Source Arterial line, O2 % 85, ABG pH 7.22 L*, ABG pCO2 38.1, ABG pO2 76.8 L, ABG HCO3 15.3 L, ABG Total CO2 16.5 L, ABG O2 Saturation 92, ABG Base Excess -12.3 L, Vent Rate 24, Tidal Volume 440, PEEP 8 11/07/20 05:55: WBC 19.5 H, RBC 2.95 L, Hgb 9.1 L, Hct 26.8 L, MCV 90.8, MCH 30.9, MCHC 34.0, RDW 14.0, Plt Count 125 L, MPV 10.0, Neut % (Auto) 91.9 H, Lymph % (Auto) 5.0 L, [place] % (Auto) 2.6, Eos % (Auto) 0.1, Baso % (Auto) 0.4, Neut # (Auto) 17.9 H, Lymph # (Auto) 1.0, [place]uel # (Auto) 0.5, Eos # (Auto) 0.0, Baso # (Auto) 0.1, Total Counted 100, Neutrophils % (Manual) 87 H, Lymphocytes % (Manual) 10, Monocytes % (Manual) 3, Platelet Estimate Normal, RBC Morphology Normal 11/07/20 05:55: Sodium 131 L, Potassium 5.4 H, Chloride 95 L, Carbon Dioxide 16 L, Anion Gap 25.4 H, BUN 113 H*, Creatinine 5.60 H, Estimated Creat Clear 17, Estimated GFR 8 L*, Est GFR ( Amer) 9 L*, Glucose 143 H, Calcium 6.7 L, Total Bilirubin 1.2, AST 371 H* D, ALT 1651 H*, Alkaline Phosphatase 150 H, Total Protein 5.6 L, Albumin 2.6 L, Globulin 3.0, Albumin/Globulin Ratio 0.9 L 11/07/20 05:55: PT 12.6 H, INR 1.15 H 11/07/20 07:20: Specimen Source Ashlyn, O2 % 85, ABG pH 7.28 L, ABG pCO2 33.8 L, ABG pO2 87.9, ABG HCO3 15.7 L, ABG Total CO2 16.7 L, ABG O2 Saturation 95, ABG Base Excess -11.0 L, Connor Test N/a, Vent Rate 24, Tidal Volume 480, PEEP 8 I & O for Last 24 hours: Intake & Output 11/05/20 11/06/20 11/07/20 11/08/20 11:59 11:59 11:59 11:59 Intake Total 3821 / 3821 2653 / 2653 2635 / 2635 Output Total 117 / 117 112 / 117 146 / 146 Balance 3704 / 3704 2541 / 2536 2489 / 2489 Weight 242 lb 6 oz 237 lb 3 oz 239 lb 13.807 oz Microbiology Reports for the Last 24 Hours: Microbiology 11/03/20 04:30 Sputum - Endotracheal Tube Aspirate Gram Stain - Final 11/03/20 04:30 Sputum - Endotracheal Tube Aspirate Sputum Culture - Preliminary 11/03/20 18:23 Lung,Right Lower Lobe Gram Stain - Final 11/03/20 18:23 Lung,Right Lower Lobe Bronchial Aspirate Culture - Final Staphylococcus haemolyticus Enterococcus faecalis - Routine Chest/Breast/Axilla Exam Comments: Chest tube reveals appreciable swaying with occasional air leak on suction with patient mechanically ventilated.
--- NOTE | 2020-11-07 14:46 | PC.NURSE ---
Air methods at bedside at this time
[2020-11-08 16:23] LABS: Strongyloides IgG Antibody Negative (Negative)
== END 2020-11-07 15:49 | disposition short-term general hospital (02) | DRG 207 ==
LOC: ER 22:32 → ICU 10-22 01:02
PROVIDERS: Internal Medicine Pulmonary Disease; Admitting Provider Family Medicine; Emergency Provider Emergency Medicine; PCP Family Medicine; Visit Provider Family Medicine
DX: U07.1 COVID-19 (principal); J96.01 Acute respiratory failure with hypoxia; J12.82 Pneumonia due to coronavirus disease 2019; I21.3 ST elevation (STEMI) myocardial infarction of unspecified site; J93.0 Spontaneous tension pneumothorax; K72.01 Acute and subacute hepatic failure with coma; R65.21 Severe sepsis with septic shock; A41.9 Sepsis, unspecified organism; J96.21 Acute and chronic respiratory failure with hypoxia; I82.452 Acute embolism and thrombosis of left peroneal vein; E87.6 Hypokalemia; Z72.0 Tobacco use; Z82.49 Family history of ischemic heart disease and other diseases of the circulatory system; I10 Essential (primary) hypertension
CPT/HCPCS: 31500 ×2; 94002 ×2; 32556; 36415; 71045; 71275; 76705; 80048; 80053; 80074; 80076; 80202; 81001; 82140; 82330; 82803; 82962; 83605; 83690; 83735; 84145; 84478; 84484; 85007; 85025; 85378; 85610; 85651; 85730; 86140; 86682; 87040; 87070; 87075; 87077; 87081; 87086; 87186; 87205; 87581; 87633; 87798; 93005; 93306; 93308; 93970; 94003; 94640; 94660; 94760; 94761; 96365; 96367; 96375; 99285; C1751; J0456; J2020; J2405; J2543; J2704; J3370; Q9957; Q9967